=== PATIENT | female | born 1935 | race Caucasian/White ===

== ENCOUNTER 2019-02-16 11:09 | Outpatient (CLI) | payer MEDICARE, BC ==
[2019-02-16 17:07] LABS: BASOPHILS # (AUTO) 0.1 10^3/uL (0.0-0.1); BASOPHILS % (AUTO) 1.2 %; EOSINOPHILS # (AUTO) 0.1 10^3/uL (0.0-0.7); EOSINOPHILS % (AUTO) 1.8 %; HGB - HEMOGLOBIN 15.2 g/dL (12.0-16.0); LYMPHOCYTES # (AUTO) 1.5 10^3/uL (1.5-3.5); LYMPHOCYTES % (AUTO) 21.1 %; MEAN CORPUSCULAR HEMOGLOBIN 32.8 pg (27.0-31.0); MEAN CORPUSCULAR HGB CONC 32.1 g/dL (32.0-36.0); MEAN CORPUSCULAR VOLUME 102.2 fL (81.0-99.0); MEAN PLATELET VOLUME 9.7 fL (7.9-10.8); MONOCYTES # (AUTO) 0.6 10^3/uL (0.0-1.0); NEUTROPHILS # (AUTO) 4.9 10^3/uL (1.5-6.6); NEUTROPHILS % (AUTO) 67.6 %; PLT - PLATELET COUNT 298 10^3/uL (130-450); RED BLOOD COUNT 4.64 10^6/uL (4.20-5.40); RED CELL DISTRIBUTION WIDTH 18.2 % (12.0-15.0); WHITE BLOOD COUNT 7.3 x10^3/uL (4.8-10.8)
== END 2019-02-16 11:10 | disposition home or self-care (01) ==
LOC: LAB.S 11:09
DX: D45 Polycythemia vera (principal)
CPT/HCPCS: 36415; 85025

== ENCOUNTER 2019-03-05 | Outpatient (CLI) | payer MEDICARE, BC | END 2019-03-05 12:06 | disposition home or self-care (01) | DX: D45 Polycythemia vera (principal) | CPT/HCPCS: 36415; 85025 ==

== ENCOUNTER 2019-03-31 13:37 | Outpatient (CLI) | payer MEDICARE, BC ==
[2019-03-31 17:37] LABS: BASOPHILS # (AUTO) 0.1 10^3/uL (0.0-0.1); BASOPHILS % (AUTO) 0.8 %; EOSINOPHILS # (AUTO) 0.1 10^3/uL (0.0-0.7); EOSINOPHILS % (AUTO) 1.2 %; HGB - HEMOGLOBIN 13.7 g/dL (12.0-16.0); LYMPHOCYTES # (AUTO) 1.9 10^3/uL (1.5-3.5); LYMPHOCYTES % (AUTO) 28.8 %; MEAN CORPUSCULAR HEMOGLOBIN 35.1 pg (27.0-31.0); MEAN CORPUSCULAR HGB CONC 32.9 g/dL (32.0-36.0); MEAN CORPUSCULAR VOLUME 106.7 fL (81.0-99.0); MEAN PLATELET VOLUME 9.4 fL (7.9-10.8); MONOCYTES # (AUTO) 0.3 10^3/uL (0.0-1.0); MONOCYTES % (AUTO) 5.1 %; NEUTROPHILS # (AUTO) 4.2 10^3/uL (1.5-6.6); NEUTROPHILS % (AUTO) 63.6 %; PLT - PLATELET COUNT 266 10^3/uL (130-450); WHITE BLOOD COUNT 6.5 x10^3/uL (4.8-10.8)
== END 2019-03-31 13:38 | disposition home or self-care (01) ==
LOC: LAB.S 13:37
PROVIDERS: ATTEND Nurse Practitioner
DX: D45 Polycythemia vera (principal)
CPT/HCPCS: 36415; 85025

== ENCOUNTER 2019-04-28 13:02 | Outpatient (CLI) | payer MEDICARE, BC ==
[2019-04-28 17:35] LABS: BASOPHILS % (AUTO) 0.7 %; EOSINOPHILS # (AUTO) 0.2 10^3/uL (0.0-0.7); EOSINOPHILS % (AUTO) 2.5 %; HGB - HEMOGLOBIN 13.6 g/dL (12.0-16.0); LYMPHOCYTES # (AUTO) 1.5 10^3/uL (1.5-3.5); LYMPHOCYTES % (AUTO) 24.3 %; MEAN CORPUSCULAR HEMOGLOBIN 38.1 pg (27.0-31.0); MEAN CORPUSCULAR HGB CONC 33.7 g/dL (32.0-36.0); MEAN CORPUSCULAR VOLUME 112.9 fL (81.0-99.0); MEAN PLATELET VOLUME 9.3 fL (7.9-10.8); MONOCYTES # (AUTO) 0.4 10^3/uL (0.0-1.0); MONOCYTES % (AUTO) 6.7 %; NEUTROPHILS # (AUTO) 3.9 10^3/uL (1.5-6.6); NEUTROPHILS % (AUTO) 65.5 %; PLT - PLATELET COUNT 255 10^3/uL (130-450); RED BLOOD COUNT 3.57 10^6/uL (4.20-5.40); RED CELL DISTRIBUTION WIDTH 15.9 % (12.0-15.0)
[2019-04-28 20:11] LABS: PLATELET ESTIMATE, MANUAL NORMAL (130-450,000) (NORMAL); PLATELET MORPHOLOGY NORMAL APPEARANCE (NORMAL)
== END 2019-04-28 13:03 | disposition home or self-care (01) ==
LOC: LAB.S 13:02
PROVIDERS: ATTEND Nurse Practitioner
DX: D45 Polycythemia vera (principal)
CPT/HCPCS: 36415; 85025

== ENCOUNTER 2020-05-03 07:00 | Outpatient (CLI) | payer MEDICARE, BC | END 2020-05-03 23:59 | disposition home or self-care (01) | LOC: LAB.R 07:00 | PROVIDERS: ATTEND Physician Assistant Medical | DX: L97.929 Non-pressure chronic ulcer of unspecified part of left lower leg with unspecified severity (principal) | CPT/HCPCS: 87070; 87205 ==

== ENCOUNTER 2020-08-14 15:03 | Outpatient (CLI) | payer MEDICARE, BC | END 2020-08-14 15:04 | disposition critical access hospital (66) | LOC: EMS 15:03 | PROVIDERS: ATTEND Surgery | DX: R53.1 Weakness (principal) | CPT/HCPCS: A0425; A0427 ==

== ENCOUNTER 2020-08-14 15:44 | Inpatient (IN) | payer MEDICARE, BC ==
[2020-08-14] MEDS ORDERED: SODIUM CHLORIDE 0.9% 1,000 ML IV STA ×2 (16:07)
--- NOTE | 2020-08-14 16:16 | ED Physician Documentation ---
History of Present Illness - Stated complaint Stated Complaint: GENERAL WEAKNESS - Chief complaint Chief Complaint: General - History obtained from History obtained from: Patient, EMS - History of Present Illness Timing: Yesterday Pain level max: 0 Pain level now: 0 - Additonal information Additional information: 84-year-old female presents to the emergency department with nausea for the past 24 hours. Dry heaves today. She states she just has not felt very well for the past 24 hours. Nothing makes it better or worse. No pain. No fever. No cough. No chills. She has multiple sclerosis. Is on gabapentin currently for this. She is wheelchair-bound. She had been followed in the [facility] clinic for a wound on her leg that is now healed Review of Systems Ten Systems: 10 systems reviewed and negative Constitutional: denies: Fever, Chills Nose: denies: Rhinorrhea / runny nose, Congestion Respiratory: denies: Cough GI: reports: Nausea. 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 02/09/14 08/14/20 Baclofen 10 - 20 mg PO QPM 05/11/16 08/14/20 Nitrofurantoin Macrocrystal 50 mg PO QPM 05/11/16 08/14/20 [Macrodantin] Alpha-Lipoic Acid 1,200 mg .ROUTE DAILY 05/18/20 05/18/20 Biotin 100 mg PO TID 05/18/20 08/14/20 Hydroxyurea [Hydrea] 500 mg PO QPM 05/18/20 08/14/20 Latanoprost/Pf [Latanoprost 0.005% 1 drops EACHEYE DAILY 05/18/20 08/14/20 Eye Drop] Urispas 100 mg PO BID PRN 05/18/20 05/18/20 Flavoxate HCl 100 mg PO DAILY 08/14/20 08/14/20 Zoledronic Acid 4 mg/100 ml 5 mg IV ONCE 08/14/20 08/14/20 [Zometa 4 mg/100 ml] hydroCHLOROthiazide [Hydrodiuril] 25 mg PO DAILY 08/14/20 08/14/20 - Allergies Allergies/Adverse Reactions: Allergies Allergy/AdvReac Type Severity Reaction Status Date / Time phenytoin sodium * Allergy Hives Verified 08/14/20 15:54 [From Dilantin] phenytoin sodium extended * Allergy Hives Verified 08/14/20 15:54 [From Dilantin] Sulfa (Sulfonamide Allergy Rash Verified 08/14/20 15:54 Antibiotics) - Social History Does the pt smoke?: No Smoking Status: Never smoker Does the pt drink ETOH?: Yes Does the pt have substance abuse?: No PD ED PE NORMAL - Vitals Vital signs reviewed: Yes - General General: Alert and oriented X 3, No acute distress, Well developed/nourished - HEENT HEENT: PERRL, Moist mucous membranes - Neck Neck: Supple, no meningeal sign - Cardiac Cardiac: Strong equal pulses, Other (Tachycardic) - Respiratory Respiratory: No respiratory distress, Clear bilaterally - Abdomen Abdomen: Soft, Non tender, Non distended - Derm Derm: Warm and dry - Extremities Extremities: No deformity, Other (Pitting bilateral lower extremity edema. Unable to palpate pulses on the bilateral feet. Cyanotic feet. Delayed cap refill. Legs are warm bilaterally from the proximal tibia up.) - Neuro Neuro: Alert and oriented X 3 - Psych Psych: Normal mood, Normal affect Results - Vitals Vitals: Vital Signs - 24 hr 08/14/20 08/14/20 08/14/20 15:46 16:23 17:05 Temperature 36.8 C Heart Rate 138 H 124 H 145 H Respiratory 16 19 19 Rate Blood Pressure 132/106 H 138/120 H 129/92 H O2 Saturation 98 96 95 01/05/2508/14/20 08/14/20 17:27 17:35 17:40 Temperature Heart Rate 135 H 124 H 174 H Respiratory 25 H 25 H 27 H Rate Blood Pressure 101/78 123/69 132/76 H O2 Saturation 95 92 92 08/14/20 08/14/20 08/14/20 17:45 17:50 17:55 Temperature Heart Rate 142 H 148 H 159 H Respiratory 24 19 24 Rate Blood Pressure 139/75 H 137/81 H 126/73 O2 Saturation 90 L 89 L 92 08/14/20 08/14/20 08/14/20 18:00 18:03 18:05 Temperature Heart Rate 153 H 174 H 129 H Respiratory 21 22 23 Rate Blood Pressure 145/67 H 145/67 H 133/76 H O2 Saturation 93 94 93 08/14/20 08/14/20 08/14/20 18:10 18:16 18:20 Temperature Heart Rate 180 H 137 H 131 H Respiratory 24 21 26 H Rate Blood Pressure 94/64 133/76 H 99/72 O2 Saturation 92 92 92 08/14/20 18:25 Temperature Heart Rate 23 L Respiratory 23 Rate Blood Pressure 112/77 O2 Saturation 92 Oxygen O2 Source Nasal cannula - EKG (time done) 1548 Rate: Rate (enter#) (146) Rhythm: Sinus tachycardia Oblong: Normal Intervals: Normal VT QRS: Normal Ischemia: Q waves (V1-3) 1735 Rate: Rate (enter#) (136) Rhythm: Atrial flutter (2:1) Oblong: Normal Ischemia: Non specific changes - Labs Labs: Laboratory Tests 08/14/20 08/14/20 08/14/20 16:15 16:15 16:15 WBC 8.4 RBC 3.28 L Hgb 13.1 Hct 38.1 MCV 116.2 H MCH 39.9 H MCHC 34.4 RDW 14.1 Plt Count 267 MPV 9.3 Neut # (Auto) 6.0 Lymph # (Auto) 1.8 [place] # (Auto) 0.6 Eos # (Auto) 0.0 Baso # (Auto) 0.0 Absolute Nucleated RBC 0.00 Nucleated RBC % 0.0 Manual Slide Review Indicated Platelet Estimate NORMAL (130-450,000) Platelet Morphology NORMAL APPEARANCE RBC Morph Micro Appear 2+ MACROCYTOSIS Sodium 131 L Potassium 4.8 Chloride 96 L Carbon Dioxide 22 Anion Gap 13.0 BUN 29 H Creatinine 0.7 Estimated GFR (MDRD) 80 L Glucose 106 H Calcium 8.2 L Phosphorus 4.7 H Magnesium 1.9 Total Bilirubin 0.7 AST 32 ALT 53 Alkaline Phosphatase 95 Troponin I High Sens 30.2 H* Total Protein 6.2 L Albumin 3.4 Globulin 2.8 Albumin/Globulin Ratio 1.2 Lipase 22 TSH Free T4 08/14/20 16:15 WBC RBC Hgb Hct MCV MCH MCHC RDW Plt Count MPV Neut # (Auto) Lymph # (Auto) [place] # (Auto) Eos # (Auto) Baso # (Auto) Absolute Nucleated RBC Nucleated RBC % Manual Slide Review Platelet Estimate Platelet Morphology RBC Morph Micro Appear Sodium Potassium Chloride Carbon Dioxide Anion Gap BUN Creatinine Estimated GFR (MDRD) Glucose Calcium Phosphorus Magnesium Total Bilirubin AST ALT Alkaline Phosphatase Troponin I High Sens Total Protein Albumin Globulin Albumin/Globulin Ratio Lipase TSH 2.03 Free T4 > 6.00 H - Rads (name of study) cxr Radiology: Prelim report reviewed, EMP read contemporaneously arterial US B LE Radiology: Prelim report reviewed, EMP read contemporaneously PD MEDICAL DECISION MAKING - ED course Complexity details: reviewed results, re-evaluated patient, considered differential, d/w patient, d/w territory sales consultant ED course: 84-year-old female presents to the emergency department with new onset atrial flutter. She appears to be in a 2-1 block. Her heart rate on the monitor is counting the flutter waves as individual beats, therefore her heart rate appears more elevated on the monitor than it actually is. Difficult to control her heart rate under 100, therefore a diltiazem drip was started. Does appear to have mild CHF as well, BNP will be added by the hospitalist. Patient had very cold lower extremities, she feels better after IV fluids and is warmer. Arterial ultrasound is without acute abnormality at this time. This was done on the bilateral lower extremities. Patient will need to be admitted for further care. Discussed the case with Dr. Aleman, hospitalist who accepts There is no hemodynamically significant stenosis in the right lower extremity arteries. There may be a hemodynamically significant stenosis at the level of the left distal common femoral artery/proximal superficial femoral artery. Will likely require a referral to vascular surgery at some point for further evaluation. This document was made in part using voice recognition software. While efforts are made to proofread this document, sound alike and grammatical errors may occur. IMPRESSION: Question of mild airspace opacity at the left lung base. Prominent pulmonary vasculature markings. Cardiomegaly. Findings could be due to mild fluid overload/CHF. Duplex US B LE Arterial 1. No hemodynamically significant stenosis is seen in right lower extremity arteries. 2. Suggestion of hemodynamically significant stenosis at the level of left distal common femoral artery/proximal superficial femoral artery with extensive atherosclerotic disease throughout left superficial femoral artery. Departure - Departure Disposition: 66 [facility] DC/Xfer Clinical Impression: New onset atrial flutter, Atrial flutter with rapid ventricular response, PAD (peripheral artery disease) Condition: Stable Discharge Date/Time: 08/14/20 19:30
[2020-08-14 16:23] LABS: BASOPHILS % (AUTO) 0.2 %; EOSINOPHILS % (AUTO) 0.2 %; HGB - HEMOGLOBIN 13.1 g/dL (12.0-16.0); LYMPHOCYTES # (AUTO) 1.8 10^3/uL (1.5-3.5); LYMPHOCYTES % (AUTO) 20.9 %; MEAN CORPUSCULAR HEMOGLOBIN 39.9 pg (27.0-31.0); MEAN CORPUSCULAR HGB CONC 34.4 g/dL (32.0-36.0); MEAN CORPUSCULAR VOLUME 116.2 fL (81.0-99.0); MEAN PLATELET VOLUME 9.3 fL (7.9-10.8); MONOCYTES # (AUTO) 0.6 10^3/uL (0.0-1.0); MONOCYTES % (AUTO) 7.1 %; NEUTROPHILS % (AUTO) 71.4 %; PLT - PLATELET COUNT 267 10^3/uL (130-450); RED BLOOD COUNT 3.28 10^6/uL (4.20-5.40); RED CELL DISTRIBUTION WIDTH 14.1 % (12.0-15.0); WHITE BLOOD COUNT 8.4 x10^3/uL (4.8-10.8)
--- NOTE | 2020-08-14 16:29 | XRAY Report ---
PROCEDURE: Chest 1 View X-Ray INDICATIONS: dyspnea TECHNIQUE: One view of the chest was acquired. COMPARISON: None. FINDINGS: Surgical changes and devices: Bilateral axillary clips. Clips overlying the right paramedian lower th orax. Lungs and pleura: No pleural effusions or pneumothorax. Prominent pulmonary vasculature markings. Qu estion of mild airspace opacity at the left lung base.. Mediastinum: Mediastinal contours appear normal. Heart size is enlarged. Bones and chest wall: No suspicious bony lesions. Overlying soft tissues appear unremarkable. IMPRESSION: Question of mild airspace opacity at the left lung base. Prominent pulmonary vasculature markings. Cardiomegaly. Findings could be due to mild fluid overload/CHF. Reviewed by: Henrik Ortega MD on 08/14/2020 3:27 PM [facility] Approved by: Henrik Ortega MD on 08/14/2020 3:27 PM [facility] Station ID: [id number]
[2020-08-14 16:38] LABS: ALBUMIN 3.4 g/dL (3.2-5.5); ALBUMIN/GLOBULIN RATIO 1.2 (1.0-2.2); BILIRUBIN,TOTAL 0.7 mg/dL (0.2-1.0); CALCIUM 8.2 mg/dL (8.5-10.3); CREATININE 0.7 mg/dL (0.4-1.0); MAGNESIUM 1.9 mg/dL (1.7-2.8); PHOSPHORUS 4.7 mg/dL (2.5-4.6); TOTAL PROTEIN 6.2 g/dL (6.7-8.2)
[2020-08-14] MEDS ORDERED: diltiaZEM INJ 5 MG/ML VIAL IVP STA (16:59)
[2020-08-14 17:01] LABS: PLATELET ESTIMATE, MANUAL NORMAL (130-450,000) (NORMAL); PLATELET MORPHOLOGY NORMAL APPEARANCE (NORMAL); RBC MORPHOLOGY (MULTIPLE) 2+ MACROCYTOSIS (NORMAL)
[2020-08-14] MEDS ORDERED: MAGNESIUM SULFATE 2 GRAM 2 GM/50 ML BAG IV ONE ×2 (17:42→17:46)
[2020-08-14] MEDS ORDERED: DILTIAZEM 125 MG in DEXTROSE 5% 100 ML IV STA (17:43)
[2020-08-14] MEDS ORDERED: diltiaZEM INJ 5 MG/ML VIAL ONE (18:08)
[2020-08-14 18:25] LABS: THYROID STIMULATING HORMONE 2.03 uIU/mL (0.34-5.60)
[2020-08-14] MEDS ORDERED: ONDANSETRON 4 MG/2 ML VIAL IVP PRN (18:29)
[2020-08-14] MEDS ORDERED: oxyCODONE 5 MG TABLET PO PRN (18:29)
[2020-08-14] MEDS ORDERED: ONDANSETRON ODT 4 MG TABLET TL PRN (18:29)
[2020-08-14] MEDS ORDERED: SODIUM CHLORIDE FLUSH 0.9% 10 ML SYRINGE IVP PRN (18:29)
[2020-08-14] MEDS ORDERED: ACETAMINOPHEN 325 MG TABLET PO PRN (18:29)
--- NOTE | 2020-08-14 18:46 | Ultrasound Report ---
PROCEDURE: Duplex Lwr Ext Arterial Bilat INDICATIONS: cyanosis, B LE TECHNIQUE: Color and pulse Doppler interrogation was performed of both lower extremity arterial systems, with im age documentation. COMPARISON: None FINDINGS: Right lower extremity: Common femoral artery: 59.8 cm/sec, with triphasic flow. Deep femoral artery: 64.4 cm/sec, with triphasic flow. Proximal superficial femoral artery: 91.1 cm/sec, with triphasic flow. Mid superficial femoral artery: 83.2 cm/sec, with triphasic flow. Distal superficial femoral artery: 58.1 cm/sec, with triphasic flow. Popliteal artery: 26.7 cm/sec, with biphasic flow. Posterior tibial artery: 63.4 cm/sec, with biphasic flow. Anterior tibial artery/dorsalis pedis: 48.4 cm/sec, with biphasic flow. Hart-scale imaging description: No significant atherosclerotic plaques are seen. Left lower extremity: Common femoral artery: 96.8 cm/sec, with biphasic flow. Deep femoral artery: 93.4 cm/sec, with triphasic flow. Proximal superficial femoral artery: 211.9 cm/sec, with monophasic flow. Mid superficial femoral artery: 127.6 cm/sec, with monophasic flow. Distal superficial femoral artery: 130.3 cm/sec, with monophasic flow. Popliteal artery: 48.6 cm/sec, with monophasic flow. Posterior tibial artery: 63.4 cm/sec, with monophasic flow. Anterior tibial artery/dorsalis pedis: 89.4 cm/sec, with biphasic flow. Hart-scale imaging description: Moderate amount of atherosclerotic plaques are noted throughout left superficial femoral artery. IMPRESSION: 1. No hemodynamically significant stenosis is seen in right lower extremity arteries. 2. Suggestion of hemodynamically significant stenosis at the level of left distal common femoral flores ry/proximal superficial femoral artery with extensive atherosclerotic disease throughout left superfi cial femoral artery. Reviewed by: Conner Chow MD on 08/14/2020 6:45 PM PST Approved by: Conner Chow MD on 08/14/2020 6:45 PM PST Station ID: [id number]
[2020-08-14 18:48] LABS: FREE T4 (FREE THYROXINE) > 6.00 ng/dL (0.58-1.64)
[2020-08-14] MEDS ORDERED: LACTATED RINGERS 1,000 ML IV SCH (19:00)
[2020-08-14] MEDS ORDERED: IOVERSOL 320 100 ML VIAL IVP ONE ×2 (19:02→19:42)
--- NOTE | 2020-08-14 20:12 | CT Report ---
PROCEDURE: ANGIO CHEST W/WO INDICATIONS: new afib CONTRAST: IV CONTRAST: Optiray 320 ml: 80 PO CONTRAST: *NO PO CONTRAST TECHNIQUE: After the administration of intravenous contrast, 2 mm thick sections acquired from the pulmonary api carolyn to the posterior costophrenic angles. 3-dimensional maximum intensity projection (MIP) coronal a nd sagittal reformats were then acquired through the thorax. For radiation dose reduction, the follow ing was used: automated exposure control, adjustment of mA and/or kV according to patient size. COMPARISON: Chest radiograph from the same day FINDINGS: Image quality: Excellent. Pulmonary arteries: Pulmonary arteries are normal in size, and demonstrate no intraluminal filling d efects to suggest central pulmonary embolism. Lungs and pleura: Moderate bilateral pleural effusion is seen with adjacent segmental and subsegmenta l atelectasis in posterior aspect of bilateral upper and lower lobes. Hazy groundglass opacities are noted in bilateral aerated lung guillen. No pneumothorax. Central and peripheral airways are patent. Mediastinum: Heart size is enlarged, without pericardial effusion. Prominent soft tissue densities a re noted throughout mediastinum suggestive of mediastinal lymphadenopathy. No gross hilar lymphadenop athy by size criteria. Thoracic aorta is normal in caliber and enhancement. Esophagus is normal in c aliber, without hiatal hernia. Bones and chest wall: No suspicious bony lesions. Ribs and thoracic spine appear intact throughout. The thyroid is normal. No axillary or supraclavicular adenopathy. Abdomen: Visualized upper abdominal solid organs appear normal in the early arterial phase of enhanc ement. IMPRESSION: 1. No evidence of pulmonary emboli. No thoracic aortic aneurysm. 2. Cardiomegaly. Moderate bilateral pleural effusion with atelectasis in posterior aspect of bilatera l lung guillen. Hazy groundglass opacities in aerated bilateral lung guillen. Constellation of findings is suggestive of CHF. No pneumothorax. Airway is patent. 3. Prominent soft tissue density in mediastinum suggestive of reactive inflammatory lymphadenopathy. Reviewed by: Conner Chow MD on 08/14/2020 8:10 PM PST Approved by: Conner Chow MD on 08/14/2020 8:10 PM PST Station ID: [id number]
[2020-08-14 20:18] LABS: C. PNEUMONIAE- RESP PCR PANEL NOT DETECTED
[2020-08-14] MEDS ORDERED: METOCLOPRAMIDE 10 MG/2 ML VIAL IVP PRN (20:51)
[2020-08-14 21:04] LABS: BILIRUBIN,URINE NEGATIVE (NEGATIVE); GLUCOSE, URINE (UA) NEGATIVE (NEGATIVE); KETONES,URINE (UA) TRACE mg/dL (NEGATIVE); LEUKOCYTE ESTERASE, URINE NEGATIVE (NEGATIVE); NITRITE,URINE NEGATIVE (NEGATIVE); OCCULT BLOOD,URINE NEGATIVE (NEGATIVE); PH,URINE 5.5 PH (5.0-7.5); PROTEIN,URINE NEGATIVE (NEGATIVE); UROBILINOGEN,URINE 0.2 (NORMAL) E.U./dL (NORMAL)
[2020-08-14 21:16] LABS: CLARITY,URINE CLEAR (CLEAR)
[2020-08-14] MEDS ORDERED: ENOXAPARIN 60 MG/0.6 ML SYRINGE SUBQ SCH (22:00)
[2020-08-14 22:42] LABS: HEMOGLOBIN A1c% 4.7 % (4.27-6.07)
[2020-08-14] MEDS: METOPROLOL TARTRATE 50 MG TABLET PO SCH (23:09)
[2020-08-14] MEDS: ATORVASTATIN 10 MG TABLET PO SCH (23:10)
[2020-08-14] MEDS: GABAPENTIN 300 MG CAPSULE PO SCH (23:11)
[2020-08-14] MEDS: NITROFURANTOIN MACROCRYSTAL 50 MG PO SCH (23:11)
[2020-08-14] MEDS: BACLOFEN 10 MG TABLET PO SCH (23:11)
[2020-08-15] MEDS: diltiaZEM INJ 125 MG in DEXTROSE 5% 100 ML IV SCH ×2 (00:05→15:11)
[2020-08-15] MEDS: SODIUM CHLORIDE FLUSH 0.9% 10 ML SYRINGE IVP SCH ×3 (00:06→17:56)
[2020-08-15] MEDS: ZOLPIDEM 5 MG TABLET PO PRN ×2 (01:03→21:51)
[2020-08-15 05:27] LABS: ALBUMIN 3.2 g/dL (3.2-5.5); ALBUMIN/GLOBULIN RATIO 1.2 (1.0-2.2); ALKALINE PHOSPHATASE 93 IU/L (42-121); ALT ALANINE AMINOTRANSFERASE 52 IU/L (10-60); AST ASPARTATE AMINOTRANSFERASE 29 IU/L (10-42); BILIRUBIN,TOTAL 0.8 mg/dL (0.2-1.0); BUN - BLOOD UREA NITROGEN 27 mg/dL (6-20); CALCIUM 8.3 mg/dL (8.5-10.3); CARBON DIOXIDE - CO2 20 mmol/L (21-32); CHLORIDE 103 mmol/L (101-111); CREATININE 0.6 mg/dL (0.4-1.0); GLUCOSE 98 mg/dL (70-100); SODIUM 134 mmol/L (135-145); TOTAL PROTEIN 5.9 g/dL (6.7-8.2)
[2020-08-15 05:40] LABS: VBG PH 7.311 (7.31-7.41)
[2020-08-15 05:56] LABS: FREE T3 8.7 pg/mL (2.5-3.9)
[2020-08-15 05:58] LABS: FREE T4 (FREE THYROXINE) 5.47 ng/dL (0.58-1.64)
[2020-08-15] MEDS: GABAPENTIN 300 MG CAPSULE PO SCH ×5 (06:10→20:51)
[2020-08-15] MEDS: METOPROLOL TARTRATE 50 MG TABLET PO SCH ×2 (08:07→20:29)
[2020-08-15] MEDS: polyethylene glycoL 3350 17 GM PACKET PO SCH (08:07)
[2020-08-15] MEDS ORDERED: ENOXAPARIN 40 MG/0.4 ML SYRINGE SUBQ SCH (09:00)
[2020-08-15] MEDS ORDERED: DIGOXIN 500 MCG/2 ML AMP IVP STA (12:14)
[2020-08-15] MEDS: FUROSEMIDE 20 MG/2 ML VIAL IVP SCH (13:07)
--- NOTE | 2020-08-15 16:40 | PHARMACY PROGRESS NOTE ---
- Best Possible Medication History Admit Date and Time: 08/14/20 1829 Processed by: Pharmacy Medication History completed: Yes Patient Interview: Completed Secondary Source(s): Pharmacy records, Insurance records As the person ultimately responsible for medication therapy, providers are able to order a medication from an existing home medication list in [facility] via the "Reconcile Routine" prior to Confirmation of that medication by direct support professional caregiver. Such practice is discouraged except when the physician, in their clinical judgment, deems that a medical need exists for a medication without regard to previous use.
--- NOTE | 2020-08-15 16:45 | PROVIDER PROGRESS NOTE ---
Subjective - Prog Note Date Prog Note Date: 08/22/20 Prog Note Time: 16:43 - Subjective Pt reports feeling: No change Subjective: She is exhausted. In retrospect she has been feeling poorly for a few weeks. But no palpitations, chest pain, orthopnea, or pedal edema. She is from [place]. She is lived in [facility]. She also lived in [place] for a few years before she went back to [place]. When they retired they bought a condo in [place]. But with Covid she moved to the [place] to stay with one of her daughters. All of her care is done at [facility]. She sees Dr. Dorothy Liz. 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 Her phone number is [phone]. Her fax number is [phone].I was able to speak to one of her colleagues. She is not in the office today but one of her colleagues was able to review the chart for me. The patient does have a multiple sclerosis. She is followed by neurologist at [facility] [place]. She is not in any treatment for the multiple sclerosis because of her past medical history. Apparently monoclonal antibodies are prohibited in people of a history of cancer. This patient has a history of melanoma. She is on hydroxyurea for polycythemia vera/essential thrombocytosis. She has been off the dilt drip. Started on metoprolol. Pulse would drop down to the 70s. Then she started creeping up so I added digoxin 0.25 without much reaction. Had to go back on the diltiazem drip to slow down her heart rate. I also gave her Lasix because of suspected congestive heart failure on the chest x-ray and on exam. Echocardiogram has been done. In review of her labs, she has hypocalcemia, hyperphosphatemia. She has an elevated free T4 of almost to 11 with a normal TSH. PTH level is also normal. Current Medications - Current Medications Current Medications: Active Medications Acetaminophen (Acetaminophen 325 Mg Tablet) 650 mg PO Q4HR PRN PRN Reason: Pain 1 to 4 Atorvastatin Calcium (Atorvastatin 10 Mg Tablet) 5 mg PO QPM [facility] Last Admin: 08/14/20 23:10 Dose: 5 mg Documented by: Baclofen (Baclofen 10 Mg Tablet) 10 - 20 mg PO QPM [facility] Last Admin: 08/14/20 23:11 Dose: Not Given Documented by: Furosemide (Furosemide 20 Mg/2 Ml Vial) 20 mg IVP DAILY [facility] Last Admin: 08/15/20 13:07 Dose: 20 mg Documented by: Gabapentin (Gabapentin 300 Mg Capsule) 600 mg PO 5XD [facility] Last Admin: 08/15/20 14:58 Dose: Not Given Documented by: Hydroxyurea (Hydroxyurea 500 Mg Capsule) 500 mg PO QPM [facility] Diltiazem HCl 125 mg/ Dextrose 125 mls @ 5 mls/hr IV .Q25H [facility]; Protocol Last Titration: 08/15/20 16:16 Dose: 10 mg/hr, 10 mls/hr Documented by: Latanoprost (Latanoprost 0.005% Ophth Drops) 1 drops EACHEYE QPM [facility] Metoclopramide HCl (Metoclopramide 10 Mg/2 Ml Vial) 5 mg IVP Q6HR PRN PRN Reason: Nausea / Vomiting Last Admin: 08/15/20 00:46 Dose: 5 mg Documented by: Metoprolol Tartrate (Metoprolol Tartrate 50 Mg Tablet) 50 mg PO BID [facility] Last Admin: 08/15/20 08:07 Dose: 50 mg Documented by: Non-Formulary Medication (Nitrofurantoin Macrocrystal [Macrodantin]) 50 mg PO QPM [facility] Last Admin: 08/14/20 23:11 Dose: Not Given Documented by: Ondansetron HCl (Ondansetron Odt 4 Mg Tablet) 4 mg TL Q6HR PRN PRN Reason: Nausea / Vomiting Ondansetron HCl (Ondansetron 4 Mg/2 Ml Vial) 4 mg IVP Q6HR PRN PRN Reason: Nausea / Vomiting Oxycodone HCl (Oxycodone 5 Mg Tablet) 5 mg PO Q4HR PRN PRN Reason: Pain 5 to 7 Polyethylene Glycol (Polyethylene Glycol 3350 17 Gm Packet) 17 gm PO DAILY [facility] Last Admin: 08/15/20 08:07 Dose: 17 gm Documented by: Sodium Chloride (Sodium Chloride Flush 0.9% 10 Ml Syringe) 10 ml IVP 0100,0900,1700 [facility] Last Admin: 08/15/20 08:08 Dose: Not Given Documented by: Sodium Chloride (Sodium Chloride Flush 0.9% 10 Ml Syringe) 10 ml IVP PRN PRN PRN Reason: NEEDED PER PROVIDER ORDERS Zolpidem Tartrate (Zolpidem 5 Mg Tablet) 5 mg PO QPM PRN PRN Reason: Insomnia Last Admin: 08/15/20 01:03 Dose: 5 mg Documented by: Aspirin [Aspir 81] 81 mg PO QPM 02/09/14 Atorvastatin Calcium [Lipitor] 5 mg PO QPM 02/09/14 Calcium Carbonate [Calcium] 500 mg PO BID 02/09/14 Cholecalciferol (Vitamin D3) [Vitamin D] 2,000 units PO DAILY 02/09/14 Gabapentin 600 mg PO TID 02/09/14 Baclofen 10 - 20 mg PO QPM 05/11/16 Nitrofurantoin Macrocrystal [Macrodantin] 50 mg PO QPM 05/11/16 Biotin 100 mg PO TID 05/18/20 Hydroxyurea [Hydrea] 500 mg PO QPM 05/18/20 Latanoprost/Pf [Latanoprost 0.005% Eye Drop] 1 drops EACHEYE DAILY 05/18/20 Flavoxate HCl 100 mg PO TID PRN 08/14/20 Zoledronic Acid 4 mg/100 ml [Zometa 4 mg/100 ml] 5 mg IV ONCE 08/14/20 Alpha Lipoic Acid 1,200 mg PO DAILY 08/15/20 Brimonidine Tartrate/Timolol [Combigan 0.2%-0.5% Eye Drops] 1 drops EACHEYE BID 08/15/20 Objective - Vital Signs/Intake & Output Reviewed Vital Signs: Yes Vital Signs: Vital Signs x48h Temp Pulse Pulse Resp BP BP Pulse Ox 08/15/20 15:38 105 H 132/80 H 08/15/20 14:55 118 H 122/82 H 08/15/20 14:00 108 H 11 L 134/62 H 98 08/15/20 13:00 36.7 C 106 H 18 139/72 H 96 08/15/20 12:30 115 H 08/15/20 12:00 110 H 16 143/88 H 97 08/15/20 11:00 85 27 H 127/67 98 08/15/20 10:00 36.6 C 72 21 111/71 98 08/15/20 09:27 76 08/15/20 09:00 115 H 21 136/72 H 95 Intake & Output: Intake & Output 08/12/20 08/13/20 08/14/20 08/15/20 23:59 23:59 23:59 23:59 Intake Total 1269.0 685.250 Output Total 495 1328 Balance 774.0 -642.750 - Objective General Appearance: positive: No acute distress, Alert, Other (He is so tired that she spends her visits with me head tilted downward. She rest her hand on her upper right hand with elbow bent and arm propping up her head. She is so t ired she can not hold her head up on her own.) Eyes Bilateral: positive: PERRL, EOMI Neck: negative: Stiff neck Respiratory: positive: No respiratory distress, Rales. negative: Wheezes, Rhonchi Cardiovascular: positive: Irregularly irregular, Tachycardia, JVD present, Systolic murmur, Diastolic murmur. negative: Gallop/S4, Friction rub Abdomen: positive: Non-tender, No organomegaly, Nml bowel sounds, No distention Skin: positive: Warm, Dry, Pallor Extremities: positive: Full ROM, Pedal edema Neurologic/Psychiatric: positive: Oriented x3, CN's nml (2-12). negative: Motor nml (generalized weakness, she is exhausted) - Lab Results Fish Bones: 08/14/20 16:15 08/15/20 04:43 Other Labs: Lab Results x24hrs 08/15/20 08/15/20 08/15/20 Range/Units 04:43 04:43 04:43 Neut # (Auto) (1.5-6.6) 10^3/uL Lymph # (Auto) (1.5-3.5) 10^3/uL Starr # (Auto) (0.0-1.0) 10^3/uL Eos # (Auto) (0.0-0.7) 10^3/uL Baso # (Auto) (0.0-0.1) 10^3/uL Absolute Nucleated RBC x10^3/uL Nucleated RBC % /100WBC Platelet Estimate (NORMAL) Platelet Morphology (NORMAL) RBC Morph Micro Appear (NORMAL) VBG pH 7.311 (7.31-7.41) Ionized Calcium 1.06 L YES (1.15-1.33) mmol/L Sodium 134 L (135-145) mmol/L Potassium 4.5 (3.5-5.0) mmol/L Chloride 103 (101-111) mmol/L Carbon Dioxide 20 L (21-32) mmol/L Anion Gap 11.0 (6-13) BUN 27 H (6-20) mg/dL Creatinine 0.6 (0.4-1.0) mg/dL Estimated GFR (MDRD) 95 (>89) Glucose 98 (70-100) mg/dL Estimat Average Glucose (70-100) mg/dL Hemoglobin A1c % (4.27-6.07) % Calcium 8.3 L (8.5-10.3) mg/dL Magnesium (1.7-2.8) mg/dL Total Bilirubin 0.8 (0.2-1.0) mg/dL AST 29 (10-42) IU/L ALT 52 (10-60) IU/L Alkaline Phosphatase 93 (42-121) IU/L Troponin I High Sens (2.3-14.8) ng/L B-Natriuretic Peptide (5-100) pg/mL Total Protein 5.9 L (6.7-8.2) g/dL Albumin 3.2 (3.2-5.5) g/dL Globulin 2.7 (2.1-4.2) g/dL Albumin/Globulin Ratio 1.2 (1.0-2.2) TSH (0.34-5.60) uIU/mL Free T4 5.47 H (0.58-1.64) ng/dL Free T3 pg/mL 8.70 H (2.5-3.9) pg/mL PTH Intact 56 (12-88) pg/mL Urine Color Urine Clarity (CLEAR) Urine pH (5.0-7.5) PH Ur Specific Sidney (1.002-1.030) Urine Protein (NEGATIVE) mg/dL Urine Glucose (UA) (NEGATIVE) mg/dL Urine Ketones (NEGATIVE) mg/dL Urine Occult Blood (NEGATIVE) Urine Nitrite (NEGATIVE) Urine Bilirubin (NEGATIVE) Urine Urobilinogen (NORMAL) E.U./dL Ur Leukocyte Esterase (NEGATIVE) Ur Microscopic Review Urine Culture Comments Urine Sodium mmol/L Nasal Adenovirus (PCR) Nasal B. parapertussis DNA (PCR) Nasal Coronavir 229E PCR Nasal Coronavir HKU1 PCR Nasal Coronavir NL63 PCR Nasal Coronavir OC43 PCR Nasal Enterovir/Rhinovir PCR Nasal Influenza B PCR Nasal Influenza A PCR Nasal Parainfluen 1 PCR Nasal Parainfluen 2 PCR Nasal Parainfluen 3 PCR Nasal Parainfluen 4 PCR Nasal RSV (PCR) Nasal Screen MRSA (PCR) (NEGATIVE) Nasal B.pertussis DNA PCR Nasal C.pneumoniae (PCR) Cipriano Human Metapneumo PCR Nasal M.pneumoniae (PCR) Nasal SARS-CoV-2 (PCR) 08/15/20 08/14/20 08/14/20 Range/Units 04:43 20:50 20:50 Neut # (Auto) (1.5-6.6) 10^3/uL Lymph # (Auto) (1.5-3.5) 10^3/uL Starr # (Auto) (0.0-1.0) 10^3/uL Eos # (Auto) (0.0-0.7) 10^3/uL Baso # (Auto) (0.0-0.1) 10^3/uL Absolute Nucleated RBC x10^3/uL Nucleated RBC % /100WBC Platelet Estimate (NORMAL) Platelet Morphology (NORMAL) RBC Morph Micro Appear (NORMAL) VBG pH (7.31-7.41) Ionized Calcium (1.15-1.33) mmol/L Sodium (135-145) mmol/L Potassium (3.5-5.0) mmol/L Chloride (101-111) mmol/L Carbon Dioxide (21-32) mmol/L Anion Gap (6-13) BUN (6-20) mg/dL Creatinine (0.4-1.0) mg/dL Estimated GFR (MDRD) (>89) Glucose (70-100) mg/dL Estimat Average Glucose (70-100) mg/dL Hemoglobin A1c % (4.27-6.07) % Calcium (8.5-10.3) mg/dL Magnesium 2.3 (1.7-2.8) mg/dL Total Bilirubin (0.2-1.0) mg/dL AST (10-42) IU/L ALT (10-60) IU/L Alkaline Phosphatase (42-121) IU/L Troponin I High Sens (2.3-14.8) ng/L B-Natriuretic Peptide (5-100) pg/mL Total Protein (6.7-8.2) g/dL Albumin (3.2-5.5) g/dL Globulin (2.1-4.2) g/dL Albumin/Globulin Ratio (1.0-2.2) TSH (0.34-5.60) uIU/mL Free T4 (0.58-1.64) ng/dL Free T3 pg/mL (2.5-3.9) pg/mL PTH Intact (12-88) pg/mL Urine Color YELLOW Urine Clarity CLEAR (CLEAR) Urine pH 5.5 (5.0-7.5) PH Ur Specific Sidney 1.025 (1.002-1.030) Urine Protein NEGATIVE (NEGATIVE) mg/dL Urine Glucose (UA) NEGATIVE (NEGATIVE) mg/dL Urine Ketones TRACE (NEGATIVE) mg/dL Urine Occult Blood NEGATIVE (NEGATIVE) Urine Nitrite NEGATIVE (NEGATIVE) Urine Bilirubin NEGATIVE (NEGATIVE) Urine Urobilinogen 0.2 (NORMAL) (NORMAL) E.U./dL Ur Leukocyte Esterase NEGATIVE (NEGATIVE) Ur Microscopic Review NOT INDICATED Urine Culture Comments NOT INDICATED Urine Sodium < 12.0 mmol/L Nasal Adenovirus (PCR) Nasal B. parapertussis DNA (PCR) Nasal Coronavir 229E PCR Nasal Coronavir HKU1 PCR Nasal Coronavir NL63 PCR Nasal Coronavir OC43 PCR Nasal Enterovir/Rhinovir PCR Nasal Influenza B PCR Nasal Influenza A PCR Nasal Parainfluen 1 PCR Nasal Parainfluen 2 PCR Nasal Parainfluen 3 PCR Nasal Parainfluen 4 PCR Nasal RSV (PCR) Nasal Screen MRSA (PCR) (NEGATIVE) Nasal B.pertussis DNA PCR Nasal C.pneumoniae (PCR) Cipriano Human Metapneumo PCR Nasal M.pneumoniae (PCR) Nasal SARS-CoV-2 (PCR) 08/14/20 08/14/20 08/14/20 Range/Units 20:30 19:50 19:08 Neut # (Auto) (1.5-6.6) 10^3/uL Lymph # (Auto) (1.5-3.5) 10^3/uL Starr # (Auto) (0.0-1.0) 10^3/uL Eos # (Auto) (0.0-0.7) 10^3/uL Baso # (Auto) (0.0-0.1) 10^3/uL Absolute Nucleated RBC x10^3/uL Nucleated RBC % /100WBC Platelet Estimate (NORMAL) Platelet Morphology (NORMAL) RBC Morph Micro Appear (NORMAL) VBG pH (7.31-7.41) Ionized Calcium (1.15-1.33) mmol/L Sodium (135-145) mmol/L Potassium (3.5-5.0) mmol/L Chloride (101-111) mmol/L Carbon Dioxide (21-32) mmol/L Anion Gap (6-13) BUN (6-20) mg/dL Creatinine (0.4-1.0) mg/dL Estimated GFR (MDRD) (>89) Glucose (70-100) mg/dL Estimat Average Glucose (70-100) mg/dL Hemoglobin A1c % (4.27-6.07) % Calcium (8.5-10.3) mg/dL Magnesium (1.7-2.8) mg/dL Total Bilirubin (0.2-1.0) mg/dL AST (10-42) IU/L ALT (10-60) IU/L Alkaline Phosphatase (42-121) IU/L Troponin I High Sens 30.2 H* (2.3-14.8) ng/L B-Natriuretic Peptide (5-100) pg/mL Total Protein (6.7-8.2) g/dL Albumin (3.2-5.5) g/dL Globulin (2.1-4.2) g/dL Albumin/Globulin Ratio (1.0-2.2) TSH (0.34-5.60) uIU/mL Free T4 (0.58-1.64) ng/dL Free T3 pg/mL (2.5-3.9) pg/mL PTH Intact (12-88) pg/mL Urine Color Urine Clarity (CLEAR) Urine pH (5.0-7.5) PH Ur Specific Sidney (1.002-1.030) Urine Protein (NEGATIVE) mg/dL Urine Glucose (UA) (NEGATIVE) mg/dL Urine Ketones (NEGATIVE) mg/dL Urine Occult Blood (NEGATIVE) Urine Nitrite (NEGATIVE) Urine Bilirubin (NEGATIVE) Urine Urobilinogen (NORMAL) E.U./dL Ur Leukocyte Esterase (NEGATIVE) Ur Microscopic Review Urine Culture Comments Urine Sodium mmol/L Nasal Adenovirus (PCR) NOT DETECTED Nasal B. parapertussis DNA (PCR) NOT DETECTED Nasal Coronavir 229E PCR NOT DETECTED Nasal Coronavir HKU1 PCR NOT DETECTED Nasal Coronavir NL63 PCR NOT DETECTED Nasal Coronavir OC43 PCR NOT DETECTED Nasal Enterovir/Rhinovir PCR NOT DETECTED Nasal Influenza B PCR NOT DETECTED Nasal Influenza A PCR NOT DETECTED Nasal Parainfluen 1 PCR NOT DETECTED Nasal Parainfluen 2 PCR NOT DETECTED Nasal Parainfluen 3 PCR NOT DETECTED Nasal Parainfluen 4 PCR NOT DETECTED Nasal RSV (PCR) NOT DETECTED Nasal Screen MRSA (PCR) NEGATIVE (NEGATIVE) Nasal B.pertussis DNA PCR NOT DETECTED Nasal C.pneumoniae (PCR) NOT DETECTED Cipriano Human Metapneumo PCR NOT DETECTED Nasal M.pneumoniae (PCR) NOT DETECTED Nasal SARS-CoV-2 (PCR) NOT DETECTED 08/14/20 08/14/20 08/14/20 Range/Units 16:15 16:15 16:15 Neut # (Auto) (1.5-6.6) 10^3/uL Lymph # (Auto) (1.5-3.5) 10^3/uL Starr # (Auto) (0.0-1.0) 10^3/uL Eos # (Auto) (0.0-0.7) 10^3/uL Baso # (Auto) (0.0-0.1) 10^3/uL Absolute Nucleated RBC x10^3/uL Nucleated RBC % /100WBC Platelet Estimate (NORMAL) Platelet Morphology (NORMAL) RBC Morph Micro Appear (NORMAL) VBG pH (7.31-7.41) Ionized Calcium (1.15-1.33) mmol/L Sodium (135-145) mmol/L Potassium (3.5-5.0) mmol/L Chloride (101-111) mmol/L Carbon Dioxide (21-32) mmol/L Anion Gap (6-13) BUN (6-20) mg/dL Creatinine (0.4-1.0) mg/dL Estimated GFR (MDRD) (>89) Glucose (70-100) mg/dL Estimat Average Glucose 88 (70-100) mg/dL Hemoglobin A1c % 4.7 (4.27-6.07) % Calcium (8.5-10.3) mg/dL Magnesium (1.7-2.8) mg/dL Total Bilirubin (0.2-1.0) mg/dL AST (10-42) IU/L ALT (10-60) IU/L Alkaline Phosphatase (42-121) IU/L Troponin I High Sens (2.3-14.8) ng/L B-Natriuretic Peptide 869 H (5-100) pg/mL Total Protein (6.7-8.2) g/dL Albumin (3.2-5.5) g/dL Globulin (2.1-4.2) g/dL Albumin/Globulin Ratio (1.0-2.2) TSH 2.03 (0.34-5.60) uIU/mL Free T4 > 6.00 H (0.58-1.64) ng/dL Free T3 pg/mL (2.5-3.9) pg/mL PTH Intact (12-88) pg/mL Urine Color Urine Clarity (CLEAR) Urine pH (5.0-7.5) PH Ur Specific Sidney (1.002-1.030) Urine Protein (NEGATIVE) mg/dL Urine Glucose (UA) (NEGATIVE) mg/dL Urine Ketones (NEGATIVE) mg/dL Urine Occult Blood (NEGATIVE) Urine Nitrite (NEGATIVE) Urine Bilirubin (NEGATIVE) Urine Urobilinogen (NORMAL) E.U./dL Ur Leukocyte Esterase (NEGATIVE) Ur Microscopic Review Urine Culture Comments Urine Sodium mmol/L Nasal Adenovirus (PCR) Nasal B. parapertussis DNA (PCR) Nasal Coronavir 229E PCR Nasal Coronavir HKU1 PCR Nasal Coronavir NL63 PCR Nasal Coronavir OC43 PCR Nasal Enterovir/Rhinovir PCR Nasal Influenza B PCR Nasal Influenza A PCR Nasal Parainfluen 1 PCR Nasal Parainfluen 2 PCR Nasal Parainfluen 3 PCR Nasal Parainfluen 4 PCR Nasal RSV (PCR) Nasal Screen MRSA (PCR) (NEGATIVE) Nasal B.pertussis DNA PCR Nasal C.pneumoniae (PCR) Cipriano Human Metapneumo PCR Nasal M.pneumoniae (PCR) Nasal SARS-CoV-2 (PCR) 08/14/20 08/14/20 Range/Units 16:15 16:15 Neut # (Auto) 6.0 (1.5-6.6) 10^3/uL Lymph # (Auto) 1.8 (1.5-3.5) 10^3/uL Starr # (Auto) 0.6 (0.0-1.0) 10^3/uL Eos # (Auto) 0.0 (0.0-0.7) 10^3/uL Baso # (Auto) 0.0 (0.0-0.1) 10^3/uL Absolute Nucleated RBC 0.00 x10^3/uL Nucleated RBC % 0.0 /100WBC Platelet Estimate NORMAL (130-450,000) (NORMAL) Platelet Morphology NORMAL APPEARANCE (NORMAL) RBC Morph Micro Appear 2+ MACROCYTOSIS (NORMAL) VBG pH (7.31-7.41) Ionized Calcium (1.15-1.33) mmol/L Sodium (135-145) mmol/L Potassium (3.5-5.0) mmol/L Chloride (101-111) mmol/L Carbon Dioxide (21-32) mmol/L Anion Gap (6-13) BUN (6-20) mg/dL Creatinine (0.4-1.0) mg/dL Estimated GFR (MDRD) (>89) Glucose (70-100) mg/dL Estimat Average Glucose (70-100) mg/dL Hemoglobin A1c % (4.27-6.07) % Calcium (8.5-10.3) mg/dL Magnesium (1.7-2.8) mg/dL Total Bilirubin (0.2-1.0) mg/dL AST (10-42) IU/L ALT (10-60) IU/L Alkaline Phosphatase (42-121) IU/L Troponin I High Sens 30.2 H* (2.3-14.8) ng/L B-Natriuretic Peptide (5-100) pg/mL Total Protein (6.7-8.2) g/dL Albumin (3.2-5.5) g/dL Globulin (2.1-4.2) g/dL Albumin/Globulin Ratio (1.0-2.2) TSH (0.34-5.60) uIU/mL Free T4 (0.58-1.64) ng/dL Free T3 pg/mL (2.5-3.9) pg/mL PTH Intact (12-88) pg/mL Urine Color Urine Clarity (CLEAR) Urine pH (5.0-7.5) PH Ur Specific Sidney (1.002-1.030) Urine Protein (NEGATIVE) mg/dL Urine Glucose (UA) (NEGATIVE) mg/dL Urine Ketones (NEGATIVE) mg/dL Urine Occult Blood (NEGATIVE) Urine Nitrite (NEGATIVE) Urine Bilirubin (NEGATIVE) Urine Urobilinogen (NORMAL) E.U./dL Ur Leukocyte Esterase (NEGATIVE) Ur Microscopic Review Urine Culture Comments Urine Sodium mmol/L Nasal Adenovirus (PCR) Nasal B. parapertussis DNA (PCR) Nasal Coronavir 229E PCR Nasal Coronavir HKU1 PCR Nasal Coronavir NL63 PCR Nasal Coronavir OC43 PCR Nasal Enterovir/Rhinovir PCR Nasal Influenza B PCR Nasal Influenza A PCR Nasal Parainfluen 1 PCR Nasal Parainfluen 2 PCR Nasal Parainfluen 3 PCR Nasal Parainfluen 4 PCR Nasal RSV (PCR) Nasal Screen MRSA (PCR) (NEGATIVE) Nasal B.pertussis DNA PCR Nasal C.pneumoniae (PCR) Cipriano Human Metapneumo PCR Nasal M.pneumoniae (PCR) Nasal SARS-CoV-2 (PCR) ABX Reporting Has patient been on IV antibiotics over the past 48 hours?: No Assessment/Plan - Problem List (1) Atrial flutter with rapid ventricular response Impression: This is a new diagnosis for her. Is not part of her past medical history as far as her primary care provider office can see.Preliminary, preliminary echocardiogram shows left ventricular systolic function moderately to severely impaired with an EF of 30 to 35%. Diastology and subtle regional wall motion abnormalities are difficult to assess in the presence of A. fib. Moderate to severe increase in left atrial volume index. Moderate to severe right atrial volume index. Mild secondary mitral regurgitation. Mild tricuspid regurgitation. Mild abnormal right heart pressures with an RVSP at rest 42 mmHg. Large left-sided pleural effusion noted.Troponins have been flat. She was 30.2 with both sets. I ordered CT angiogram for pulmonary emboli. Pulmonary arteries are normal in size. She has a moderate bilateral pleural effusion with adjacent segmental and subsegmental atelectasis in the posterior aspect of the bilateral upper and lower lobes. Hazy groundglass opacities noted in the bilateral aerated lung guillen. Heart size enlarged. No pericardial effusion. Prominent soft tissue densities are noted throughout the mediastinum suggestive of mediastinal lymphadenopathy. In this woman is Of note she is hyperthyroid. So her dilated left atrium and elevated T4 plus pleural effusion may have all contributed to put into A. fib. Plan: Anticoagulation in the form of Lovenox for now. I do not know if we can have to do any procedures on her and I do not want her on a DOAC. I have added digoxin 1 dose to help slow her down. She will be off diltiazem off and on but it would be contraindicated in someone his ejection fraction is so low Continue to increase Lopressor from 50 twice daily to 75 twice daily (2) Acute on chronic systolic heart failure Impression: Again a new diagnosis for her. She has no previous history of congestive heart failure or MO. Treatment for A. fib as above. Lasix 20 mg IV push twice daily (3) Pleural effusion due to CHF (congestive heart failure) Impression: Effusion presumed CHF. Will do ultrasound tomorrow to see if she is a candidate for a thoracentesis to see if that will help shortness of breath and fatigue. The pleural effusion also may be contributing to her A. fib. (4) Elevated serum free T4 level Impression: But a normal TSH. Repeat lab studies confirm that. This patient is not on any medication that would interfere with thyroid function studies. She is not on hormone replacement therapy, maps, amiodarone, methimazole, iodine-containing medications, tyrosine can MATIAS inhibitors, interferon, lithium, etc. Her TSH is normal so she does not have hypothyroidism from pituitary dysfunction. Plan: She may need a nuclear medicine scan to assess for true hyperthyroidism. I am puzzled by her lab results. I would also like her to be seen by endocrinology in the outpatient setting. I will make sure that her primary care provider gets a copy of this note. (5) Hypocalcemia Impression: Corrected hypocalcemia is still 8.3. So she is borderline low. PTH level is normal. I checked this because her phosphorus was high. We will give calcium and high-dose vitamin D.
[2020-08-15] MEDS: CALCIUM CARBONATE CHEW 500 MG TABLET PO SCH (17:56)
[2020-08-15] MEDS: NITROFURANTOIN MACROCRYSTAL 50 MG PO SCH (18:58)
[2020-08-15] MEDS: ATORVASTATIN 10 MG TABLET PO SCH (20:30)
[2020-08-15] MEDS: BACLOFEN 10 MG TABLET PO SCH (20:30)
[2020-08-15] MEDS: LATANOPROST 0.005% OPHTH DROPS EACHEYE SCH (20:50)
[2020-08-15] MEDS: APIXABAN 5 MG TABLET PO SCH (20:51)
[2020-08-15] MEDS ORDERED: NITROFURANTOIN MACROCRYSTAL 50 MG PO SCH (21:00)
[2020-08-15] MEDS ORDERED: HYDROXYUREA 500 MG CAPSULE PO SCH (21:00)
[2020-08-16] MEDS: CALCIUM CARBONATE CHEW 500 MG TABLET PO SCH ×4 (06:04→20:52)
[2020-08-16] MEDS: GABAPENTIN 300 MG CAPSULE PO SCH ×2 (06:28→08:50)
[2020-08-16] MEDS: SODIUM CHLORIDE FLUSH 0.9% 10 ML SYRINGE IVP SCH ×3 (06:41→18:04)
[2020-08-16] MEDS: CHOLECALCIFEROL 5,000 UNIT CAPSULE PO SCH (08:33)
[2020-08-16] MEDS: APIXABAN 5 MG TABLET PO SCH ×2 (08:34→20:50)
[2020-08-16] MEDS: METOPROLOL TARTRATE 50 MG TABLET PO SCH ×2 (08:34→20:49)
[2020-08-16] MEDS: polyethylene glycoL 3350 17 GM PACKET PO SCH (08:45)
--- NOTE | 2020-08-16 08:50 | PROVIDER PROGRESS NOTE ---
Assessment/Plan - Problem List (1) Acute on chronic systolic heart failure Assessment/Plan: Chest x-ray showed increased pulmonary edema and bilateral small pleural effusion with associated compressive atelectasis or consolidation. Patient is on Lasix 20 mg IV daily. I/O 1898/600. We will continue diuresis, monitoring output and weight Losartan 25 mg p.o. daily added Spironolactone 5 mg p.o. daily added. Patient was switched from metoprolol tartrate to metoprolol succinate 50 mg p.o. daily starting in the morning 08/17/19 Patient's echocardiogram showed an ejection fraction of 30 to 35%.. There was moderate to severely impaired overall left ventricular systolic function. There was no obvious regional wall abnormality. RSVP was 42mmHg Patient would need follow-up with cardiology upon discharge. This was discussed with the patient and her daughter. They expressed understanding. (2) Atrial flutter with rapid ventricular response Assessment/Plan: Patient's rate is currently controlled and ranging between 70 and 90. Metoprolol succinate 50 mg p.o. daily has been ordered. Diltiazem drip was discontinued yesterday. (3) Pleural effusion due to CHF (congestive heart failure) Assessment/Plan: Chest x-ray today showed small pleural effusion. Patient is on Lasix 20 mg IV daily. Spironolactone 25 mg p.o. daily and losartan were added today. Continue to monitor. (4) Elevated serum free T4 level Assessment/Plan: Free T4 was 5.47. Free T3 was 8.70. PTH intact was 56 which was normal Patient Will need follow-up with endocrinology upon discharge. His heart rate is appropriately controlled with metoprolol - Current Meds Current Meds: Current Medications Generic Name Dose Route Start Last Admin Trade Name Freq PRN Reason Stop Dose Admin Apixaban 5 mg 08/15/20 21:00 08/16/20 08:34 Apixaban 5 Mg Tablet PO 5 mg BID REESE Administration Atorvastatin Calcium 5 mg 08/14/20 23:00 08/15/20 20:30 Atorvastatin 10 Mg Tablet PO 5 mg QPM REESE Administration Baclofen 10 - 20 mg 08/14/20 23:00 08/15/20 20:30 Baclofen 10 Mg Tablet PO 20 mg QPM REESE Administration Calcium Carbonate/Glycine 500 mg 08/15/20 18:00 08/16/20 06:28 Calcium Carbonate Chew 500 Mg Tablet PO 500 mg TID REESE Administration Cholecalciferol 5,000 unit 08/16/20 09:00 08/16/20 08:33 Cholecalciferol 5,000 Unit Capsule PO 5,000 unit DAILY REESE Administration Furosemide 20 mg 08/15/20 13:00 08/15/20 13:07 Furosemide 20 Mg/2 Ml Vial IVP 20 mg DAILY REESE Administration Gabapentin 600 mg 08/14/20 23:00 08/16/20 06:28 Gabapentin 300 Mg Capsule PO 600 mg 5XD REESE Administration Hydroxyurea 500 mg 08/15/20 21:00 08/16/20 06:03 Hydroxyurea 500 Mg Capsule PO Not Given QPM REESE Diltiazem HCl 125 mg/ Dextrose 125 mls @ 5 mls/hr 08/14/20 19:00 08/15/20 21:30 IV 0 mg/hr .Q25H REESE 0 mls/hr Titration Protocol 5 MG/HR Latanoprost 1 drops 08/15/20 21:00 08/15/20 20:50 Latanoprost 0.005% Ophth Drops EACHEYE 1 drops QPM REESE Administration Metoclopramide HCl 5 mg 08/14/20 20:51 08/15/20 00:46 Metoclopramide 10 Mg/2 Ml Vial IVP 5 mg Q6HR PRN Administration Nausea / Vomiting Metoprolol Tartrate 75 mg 08/15/20 21:00 08/16/20 08:34 Metoprolol Tartrate 50 Mg Tablet PO 75 mg BID REESE Administration Non-Formulary Medication 50 mg 08/14/20 22:35 08/15/20 18:58 Nitrofurantoin Macrocrystal [Macrodantin] PO 50 mg QPM REESE Administration [place] 0.2-0.5% 1 each 08/16/20 09:00 08/16/20 08:40 Eye Drops EACHEYE 1 each DAILY REESE Administration Polyethylene Glycol 17 gm 08/15/20 09:00 08/16/20 08:45 Polyethylene Glycol 3350 17 Gm Packet PO 17 gm DAILY REESE Administration Sodium Chloride 10 ml 08/15/20 01:00 08/16/20 08:44 Sodium Chloride Flush 0.9% 10 Ml Syringe IVP 10 ml 0100,0900,1700 REESE Administration Zolpidem Tartrate 5 mg 08/15/20 00:55 08/15/20 21:51 Zolpidem 5 Mg Tablet PO 5 mg QPM PRN Administration Insomnia - Lab Result Fish Bone Diagrams: 08/14/20 16:15 08/15/20 04:43 Subjective - Subjective Patient Reports: Other (.. She is alert and oriented x3. Her daughter was at bedside. However she seemed weak and exhausted. She complains of not sleeping well at night mainly due to Ambien. She reported mild increased work of juan [id number]. Denied chest pain, abdominal pain. She has a poor appetite) Objective Vital Signs: Vital Signs - 24 hr 08/15/20 08/15/20 08/15/20 09:00 09:27 10:00 Temperature 36.6 C Heart Rate Heart Rate [ 115 H 76 72 Brachial] Respiratory 21 21 Rate Blood Pressure Blood Pressure 136/72 H [Left Brachial artery] Blood Pressure 111/71 [Right Brachial artery] O2 Saturation 95 98 08/15/20 08/15/20 08/15/20 11:00 12:00 12:30 Temperature Heart Rate 115 H Heart Rate [ 85 110 H Brachial] Respiratory 27 H 16 Rate Blood Pressure Blood Pressure [Left Brachial artery] Blood Pressure 127/67 143/88 H [Right Brachial artery] O2 Saturation 98 97 08/15/20 08/15/20 08/15/20 13:00 14:00 14:55 Temperature 36.7 C Heart Rate Heart Rate [ 106 H 108 H 118 H Brachial] Respiratory 18 11 L Rate Blood Pressure Blood Pressure [Left Brachial artery] Blood Pressure 139/72 H 134/62 H 122/82 H [Right Brachial artery] O2 Saturation 96 98 08/15/20 08/15/20 08/15/20 15:38 16:00 17:00 Temperature Heart Rate Heart Rate [ 105 H 94 92 Brachial] Respiratory 17 19 Rate Blood Pressure Blood Pressure [Left Brachial artery] Blood Pressure 132/80 H 118/87 H 103/75 [Right Brachial artery] O2 Saturation 97 95 08/15/20 08/15/20 08/15/20 18:00 19:00 20:00 Temperature 36.8 C Heart Rate Heart Rate [ 88 93 96 Brachial] Respiratory 21 Rate Blood Pressure Blood Pressure [Left Brachial artery] Blood Pressure 124/74 125/62 128/62 [Right Brachial artery] O2 Saturation 95 96 96 01/06/2508/15/20 08/15/20 20:29 21:00 22:00 Temperature Heart Rate Heart Rate [ 69 76 Brachial] Respiratory 13 Rate Blood Pressure 128/62 Blood Pressure [Left Brachial artery] Blood Pressure 100/71 88/65 L [Right Brachial artery] O2 Saturation 96 94 08/15/20 08/16/20 08/16/20 23:00 00:00 01:00 Temperature 36.7 C Heart Rate Heart Rate [ 61 70 80 Brachial] Respiratory 13 20 12 Rate Blood Pressure Blood Pressure [Left Brachial artery] Blood Pressure 79/58 L 105/76 105/71 [Right Brachial artery] O2 Saturation 95 97 97 08/16/20 08/16/20 08/16/20 02:00 03:00 04:00 Temperature 36.7 C Heart Rate Heart Rate [ 70 73 82 Brachial] Respiratory 10 L 13 13 Rate Blood Pressure Blood Pressure [Left Brachial artery] Blood Pressure 88/60 L 113/74 126/98 H [Right Brachial artery] O2 Saturation 98 97 98 08/16/20 08/16/20 08/16/20 05:00 06:00 07:00 Temperature Heart Rate Heart Rate [ 80 80 85 Brachial] Respiratory 18 19 16 Rate Blood Pressure Blood Pressure [Left Brachial artery] Blood Pressure 125/82 H 130/83 H 124/67 [Right Brachial artery] O2 Saturation 98 92 93 08/16/20 08:34 Temperature Heart Rate Heart Rate [ Brachial] Respiratory Rate Blood Pressure 127/77 Blood Pressure [Left Brachial artery] Blood Pressure [Right Brachial artery] O2 Saturation Oxygen O2 Source Nasal cannula I&O (Last 24 Hrs): Intake and Output Totals x24h 08/14/20 08/15/20 08/16/20 23:59 23:59 23:59 Intake Total 1269.0 1237.583 500 Output Total 495 1898 130 Balance 774.0 -660.417 370 General: Alert, Oriented x3 Neck: No JVD Neuro: Alert, Oriented Times 3 Cardiovascular: Other (Irregularly irregular heart rhythm. regular rate, 3+ pitting edema) Respiratory: No respiratory distress, Other (coarse breath sound) Abdomen: Normal bowel sounds Extremities: Other (3+ pitting edema) - Results Results: Laboratory Results WBC 8.4 x10^3/uL (4.8-10.8) 08/14/20 16:15 RBC 3.28 10^6/uL (4.20-5.40) L 08/14/20 16:15 Hgb 13.1 g/dL (12.0-16.0) 08/14/20 16:15 Hct 38.1 % (37.0-47.0) 08/14/20 16:15 MCV 116.2 fL (81.0-99.0) H 08/14/20 16:15 MCH 39.9 pg (27.0-31.0) H 08/14/20 16:15 MCHC 34.4 g/dL (32.0-36.0) 08/14/20 16:15 RDW 14.1 % (12.0-15.0) 08/14/20 16:15 Plt Count 267 10^3/uL (130-450) 08/14/20 16:15 MPV 9.3 fL (7.9-10.8) 08/14/20 16:15 Neut # (Auto) 6.0 10^3/uL (1.5-6.6) 08/14/20 16:15 Lymph # (Auto) 1.8 10^3/uL (1.5-3.5) 08/14/20 16:15 [place] # (Auto) 0.6 10^3/uL (0.0-1.0) 08/14/20 16:15 Eos # (Auto) 0.0 10^3/uL (0.0-0.7) 08/14/20 16:15 Baso # (Auto) 0.0 10^3/uL (0.0-0.1) 08/14/20 16:15 Absolute Nucleated RBC 0.00 x10^3/uL 08/14/20 16:15 Nucleated RBC % 0.0 /100WBC 08/14/20 16:15 Manual Slide Review Indicated 08/14/20 16:15 Platelet Estimate NORMAL (130-450,000) (NORMAL) 08/14/20 16:15 Platelet Morphology NORMAL APPEARANCE (NORMAL) 08/14/20 16:15 RBC Morph Micro Appear 2+ MACROCYTOSIS (NORMAL) 08/14/20 16:15 VBG pH 7.311 (7.31-7.41) 08/15/20 04:43 Ionized Calcium 1.06 mmol/L (1.15-1.33) L 08/15/20 04:43 Sodium 134 mmol/L (135-145) L 08/15/20 04:43 Potassium 4.5 mmol/L (3.5-5.0) 08/15/20 04:43 Chloride 103 mmol/L (101-111) 08/15/20 04:43 Carbon Dioxide 20 mmol/L (21-32) L 08/15/20 04:43 Anion Gap 11.0 (6-13) 08/15/20 04:43 BUN 27 mg/dL (6-20) H 08/15/20 04:43 Creatinine 0.6 mg/dL (0.4-1.0) 08/15/20 04:43 Estimated GFR (MDRD) 95 (>89) 08/15/20 04:43 Glucose 98 mg/dL (70-100) 08/15/20 04:43 Estimat Average Glucose 88 mg/dL (70-100) 08/14/20 16:15 Hemoglobin A1c % 4.7 % (4.27-6.07) 08/14/20 16:15 Calcium 8.3 mg/dL (8.5-10.3) L 08/15/20 04:43 Ionized Calcium YES 08/15/20 04:43 Phosphorus 4.7 mg/dL (2.5-4.6) H 08/14/20 16:15 Magnesium 2.3 mg/dL (1.7-2.8) 08/15/20 04:43 Total Bilirubin 0.8 mg/dL (0.2-1.0) 08/15/20 04:43 AST 29 IU/L (10-42) 08/15/20 04:43 ALT 52 IU/L (10-60) 08/15/20 04:43 Alkaline Phosphatase 93 IU/L (42-121) 08/15/20 04:43 Troponin I High Sens 30.2 ng/L (2.3-14.8) H* 08/14/20 19:50 B-Natriuretic Peptide 869 pg/mL (5-100) H 08/14/20 16:15 Total Protein 5.9 g/dL (6.7-8.2) L 08/15/20 04:43 Albumin 3.2 g/dL (3.2-5.5) 08/15/20 04:43 Globulin 2.7 g/dL (2.1-4.2) 08/15/20 04:43 Albumin/Globulin Ratio 1.2 (1.0-2.2) 08/15/20 04:43 Lipase 22 U/L (22-51) 08/14/20 16:15 TSH 2.03 uIU/mL (0.34-5.60) 08/14/20 16:15 Free T4 5.47 ng/dL (0.58-1.64) H 08/15/20 04:43 Free T3 pg/mL 8.70 pg/mL (2.5-3.9) H 08/15/20 04:43 PTH Intact 56 pg/mL (12-88) 08/15/20 04:43 Urine Color YELLOW 08/14/20 20:50 Urine Clarity CLEAR (CLEAR) 08/14/20 20:50 Urine pH 5.5 PH (5.0-7.5) 08/14/20 20:50 Ur Specific [place] 1.025 (1.002-1.030) 08/14/20 20:50 Urine Protein NEGATIVE mg/dL (NEGATIVE) 08/14/20 20:50 Urine Glucose (UA) NEGATIVE mg/dL (NEGATIVE) 08/14/20 20:50 Urine Ketones TRACE mg/dL (NEGATIVE) 08/14/20 20:50 Urine Occult Blood NEGATIVE (NEGATIVE) 08/14/20 20:50 Urine Nitrite NEGATIVE (NEGATIVE) 08/14/20 20:50 Urine Bilirubin NEGATIVE (NEGATIVE) 08/14/20 20:50 Urine Urobilinogen 0.2 (NORMAL) E.U./dL (NORMAL) 08/14/20 20:50 Ur Leukocyte Esterase NEGATIVE (NEGATIVE) 08/14/20 20:50 Ur Microscopic Review NOT INDICATED 08/14/20 20:50 Urine Culture Comments NOT INDICATED 08/14/20 20:50 Urine Sodium < 12.0 mmol/L 08/14/20 20:50 Nasal Adenovirus (PCR) NOT DETECTED 08/14/20 19:08 Nasal B. parapertussis DNA (PCR) NOT DETECTED 08/14/20 19:08 Nasal Coronavir 229E PCR NOT DETECTED 08/14/20 19:08 Nasal Coronavir HKU1 PCR NOT DETECTED 08/14/20 19:08 Nasal Coronavir NL63 PCR NOT DETECTED 08/14/20 19:08 Nasal Coronavir OC43 PCR NOT DETECTED 08/14/20 19:08 Nasal Enterovir/Rhinovir PCR NOT DETECTED 08/14/20 19:08 Nasal Influenza B PCR NOT DETECTED 08/14/20 19:08 Nasal Influenza A PCR NOT DETECTED 08/14/20 19:08 Nasal Parainfluen 1 PCR NOT DETECTED 08/14/20 19:08 Nasal Parainfluen 2 PCR NOT DETECTED 08/14/20 19:08 Nasal Parainfluen 3 PCR NOT DETECTED 08/14/20 19:08 Nasal Parainfluen 4 PCR NOT DETECTED 08/14/20 19:08 Nasal RSV (PCR) NOT DETECTED 08/14/20 19:08 Nasal Screen MRSA (PCR) NEGATIVE (NEGATIVE) 08/14/20 20:30 Nasal B.pertussis DNA PCR NOT DETECTED 08/14/20 19:08 Nasal C.pneumoniae (PCR) NOT DETECTED 08/14/20 19:08 [place] Human Metapneumo PCR NOT DETECTED 08/14/20 19:08 Nasal M.pneumoniae (PCR) NOT DETECTED 08/14/20 19:08 Nasal SARS-CoV-2 (PCR) NOT DETECTED 08/14/20 19:08 ABX Reporting Has patient been on IV antibiotics over the past 48 hours?: No
--- NOTE | 2020-08-16 09:33 | HISTORY & PHYSICAL EXAMINATION ---
Original signed - OK to delete this version this is the re-dictated version first version appears more complete? - pls review remove this flag before signing - thanks I can delete this if you keep the orig. - Yennifer / OSIRIS/ [id number] THE 1st DICTATION WAS SIGNED. PLEASE DELETE THIS FROM THE RECORD THANK YOU! DATE OF SERVICE: 08/14/2020 Physician: Maru Fulton MD CHIEF COMPLAINT: Shortness of breath. HISTORY OF PRESENT ILLNESS: Patient is an 84-year-old, chronically ill white female with past medical history of multiple sclerosis who presented to the ER with a few days' history of poor appetite, nausea, dry heaves, and shortness of breath. She called nurse practitioner of her primary care office in [place], and she was recommended to come to the ER to get evaluated. Notably the patient does not have history of congestive heart failure or cardiac arrhythmia, at least not that she knows of. She was found in the ER with rapid heart rate and was found with atrial fibrillation, which is a new diagnosis. She was also found with congestive heart failure. Chest x-ray showed cardiomegaly, CHF-like interstitial infiltrates, and questionable left base opacity. High-sensitivity troponin was elevated at 30, subsequent check the same number without upgoing trend. White blood cell count was normal, hemoglobin normal, platelet count unremarkable. Electrolytes with minor abnormalities such as sodium 131, phosphorus was mildly elevated at 4.7, calcium 8.2. Interestingly, free T4 was significantly elevated at 6. However, TSH was normal. Urinalysis was negative. Viral panel including influenza and COVID test negative. Regarding the vital signs, besides the atrial fibrillation and rapid rate, patient was hypoxic with oxygen saturation in the 80s on room air and required supplemental oxygen. Notably, she does not have history of being oxygen dependent. PAST MEDICAL HISTORY 1. Multiple sclerosis. 2. Dyslipidemia. 3. Osteoporosis, was on Zometa in the past, currently not taking. 4. Essential thrombocytosis, on hydroxyurea. 5. History of breast cancer, status post mastectomy more than 17 years ago. No history of chemo or radiation therapy. 6. Peripheral neuropathy in the setting of MS. 7. Neurogenic bladder. 8. Chronic left lower extremity ulcer. No history of vascular insufficiency per the patient's knowledge. 9. Neurogenic bladder in the setting of MS. OUTPATIENT MEDICATIONS: Reviewed per electronic medical record. EMERGENCY ROOM WORKUP: Reviewed per electronic medical record. SOCIAL HISTORY: The patient lives with family members. She requires full care, basically wheelchair bound, and requires assistance with transfers. She is a nonsmoker. FAMILY HISTORY: Positive for MS in the sister. CODE STATUS: Do not resuscitate. REVIEW OF SYSTEMS: Please see pertinent positives listed above in history of present illness. Patient did not report additional complaints on the 12-system review. PHYSICAL EXAM VITAL SIGNS: Heart rate 138, temperature 36.8 Celsius, blood pressure 130/100, respiratory rate 25, oxygen saturation 86% on room air. GENERAL: The patient is a well-developed, chronically ill-appearing female who was not in acute distress. SKIN: Left lower extremity chronic ulcer in healing stage. LYMPHATICS: 3+ lymphedema below the knees on the lower extremities. NEUROLOGIC: Alert, oriented, nonfocal with some baseline word-finding difficulties and lower extremity weakness, which appears chronic secondary to MS. There is also some minor facial asymmetry with left-sided flattening of the face, which patient also reports is a personal variant and chronic. PSYCHIATRIC: Cooperative, pleasant to talk to. CVS: S1, S2, irregularly irregular fast rate. RESPIRATORY: Decreased air entry at the bases, a few fine crackles posteriorly. ABDOMEN: Benign without tenderness or distention. Bowel tones present. MUSCULOSKELETAL: Decreased muscle tone and lower extremity weakness in the setting of MS. ASSESSMENT AND PLAN: The patient is an 84-year-old female with past medical history of multiple sclerosis and chronic impairment who is getting admitted with new-onset atrial fibrillation and congestive heart failure. ACTIVE ISSUES/DIAGNOSES 1. Atrial fibrillation with rapid ventricular rate. 2. Congestive heart failure evidenced by mild troponin leak, elevated BNP, and cardiomegaly with interstitial infiltrates on chest x-ray. 3. Mild troponin leak without upgoing trend. 4. Abnormal electrolytes including hypocalcemia and hyperphosphatemia, [TIME: 08:22]. 5. Abnormal thyroid function test with elevated T4 and normal TSH. 6. Chronic left lower extremity ulcer. Notably, at the emergency room, vascular ultrasound/arterial Doppler was done and showed left common femoral stenosis down to the left superficial vein with extensive atherosclerotic changes. 7. Multiple sclerosis related chronic issues including wheelchair bound status, generalized weakness, urinary retention/neurogenic bladder, and dysphagia, difficulty swallowing pills. PLAN AND ORDERS 1. Patient is admitted as inpatient. We will continue rate control of atrial fibrillation on Cardizem drip, plus we will start metoprolol. Patient is a candidate for anticoagulation considering her CHADS-VASc score being above 3. Certain studies are pending including echocardiogram if she will have CHF, which is likely the score will be even be higher. In addition, she likely has peripheral vascular disease, which would make the score 5. Therefore, she definitely has high thromboembolic risk. For now, she will be given a dose of therapeutic Lovenox, and anticoagulation should be discussed and oral agents started during the daytime depending on insurance coverage. Echocardiogram is ordered. CT angiography of the chest is ordered to rule out pulmonary embolism. 2. Regarding electrolyte abnormalities, we will repeat laboratories, and if not a laboratory error then patient should be referred for endocrinology followup. Notably, on admission, parathyroid hormone was ordered. Further workup will be deferred to the outpatient setting. 3. Skin care and wound care. 4. [employer] Sales Representative consult. 5. Regarding hypoxia, I will provide supplemental oxygen and order diuresis. Notably, the patient received IV fluids on admission for renal protection, as she underwent a contrast study. For CHF, besides rate control she will likely need diuretic. 6. Code status. Do not resuscitate. 7. Deep venous thrombosis prophylaxis not needed, as the patient is therapeutically anticoagulated. 8. Time spent on the care of this patient was 70 minutes. TD: 08/16/2020 06:52 LYLY
[2020-08-16] MEDS: FUROSEMIDE 20 MG/2 ML VIAL IVP SCH (11:49)
--- NOTE | 2020-08-16 11:55 | XRAY Report ---
PROCEDURE: Chest 1 View X-Ray INDICATIONS: dyspnea TECHNIQUE: One view of the chest was acquired. COMPARISON: 08/14/2020 FINDINGS: Surgical changes and devices: None. Lungs and pleura: There are bilateral small pleural effusions, left greater than right, which appear increased from the prior study. Associated bibasilar opacities are consistent with compressive atele ctasis or consolidation. There is also slightly increased pulmonary edema. No evidence of pneumothora x. Mediastinum: Mediastinal contours appear unchanged. Heart size is enlarged. Bones and chest wall: No suspicious bony lesions. Overlying soft tissues appear unremarkable. IMPRESSION: 1. Increased pulmonary edema and bilateral small pleural effusions with associated compressive atelec tasis or consolidation. Reviewed by: Erik Ramos MD on 08/16/2020 11:54 AM [facility] Approved by: Erik Ramos MD on 08/16/2020 11:54 AM [facility] Station ID: [id number]
[2020-08-16] MEDS: HYDROXYUREA 500 MG CAPSULE PO SCH (14:22)
[2020-08-16] MEDS: GABAPENTIN 600 MG PO SCH ×2 (14:23→20:48)
[2020-08-16] MEDS ORDERED: oxyCODONE 5 MG TABLET PO PRN (20:05)
[2020-08-16] MEDS: NITROFURANTOIN MACROCRYSTAL 50 MG PO SCH (20:48)
[2020-08-16] MEDS: BACLOFEN 10 MG TABLET PO SCH (20:48)
[2020-08-16] MEDS: LATANOPROST 0.005% OPHTH DROPS EACHEYE SCH (20:48)
[2020-08-16] MEDS: ATORVASTATIN 10 MG TABLET PO SCH (20:50)
[2020-08-17] MEDS: GABAPENTIN 600 MG PO SCH ×3 (06:20→20:16)
[2020-08-17] MEDS: CALCIUM CARBONATE CHEW 500 MG TABLET PO SCH ×3 (06:25→20:16)
--- NOTE | 2020-08-17 07:30 | PROVIDER PROGRESS NOTE ---
Assessment/Plan - Problem List (1) Acute on chronic systolic heart failure Assessment/Plan: We will continue diuresing with Lasix 20 mg IV and spironolactone 25 mg p.o. daily. Patient also received losartan 25 mg p.o. daily Anticipating improvement in patient's respiratory status and decrease in pulmonary edema. Will recheck chest x-ray in the morning. Continue metoprolol succinate 50 mg p.o. daily Anticipate discharge in 1-2 days (2) Atrial flutter with rapid ventricular response Assessment/Plan: Patient's rate is currently controlled and ranging between 70 and 90. Metoprolol succinate 50 mg p.o. daily has been ordered. (3) Elevated serum free T4 level Assessment/Plan: Patient Will need follow-up with endocrinology upon discharge. (4) Pleural effusion due to CHF (congestive heart failure) Assessment/Plan: On Lasix, spironolactone and losartan. Will repeat chest x-ray in the morning. - Current Meds Current Meds: Current Medications Generic Name Dose Route Start Last Admin Trade Name Ryanq PRN Reason Stop Dose Admin Apixaban 5 mg 08/15/20 21:00 08/16/20 20:50 Apixaban 5 Mg Tablet PO 5 mg BID REESE Administration Atorvastatin Calcium 5 mg 08/14/20 23:00 08/16/20 20:50 Atorvastatin 10 Mg Tablet PO 5 mg QPM REESE Administration Baclofen 10 - 20 mg 08/14/20 23:00 08/16/20 20:48 Baclofen 10 Mg Tablet PO 20 mg QPM REESE Administration Calcium Carbonate/Glycine 500 mg 08/15/20 18:00 08/17/20 06:25 Calcium Carbonate Chew 500 Mg Tablet PO 500 mg TID REESE Administration Cholecalciferol 5,000 unit 08/16/20 09:00 08/16/20 08:33 Cholecalciferol 5,000 Unit Capsule PO 5,000 unit DAILY REESE Administration Furosemide 20 mg 08/15/20 13:00 08/16/20 11:49 Furosemide 20 Mg/2 Ml Vial IVP 20 mg DAILY REESE Administration Hydroxyurea 500 mg 08/16/20 15:00 08/16/20 14:22 Hydroxyurea 500 Mg Capsule PO 500 mg 1400 REESE Administration Latanoprost 1 drops 08/15/20 21:00 08/16/20 20:48 Latanoprost 0.005% Ophth Drops EACHEYE 1 drops QPM REESE Administration Metoclopramide HCl 5 mg 08/14/20 20:51 08/15/20 00:46 Metoclopramide 10 Mg/2 Ml Vial IVP 5 mg Q6HR PRN Administration Nausea / Vomiting Non-Formulary Medication 50 mg 08/14/20 22:35 08/16/20 20:48 Nitrofurantoin Macrocrystal [Macrodantin] PO 50 mg QPM REESE Administration Non Formulary Med 600 each 08/16/20 15:00 08/17/20 06:20 Gabapentin 600mg PO 600 each TID REESE Administration Com[place]an 0.2-0.5% 1 each 08/16/20 09:00 08/16/20 08:40 Eye Drops EACHEYE 1 each DAILY REESE Administration Polyethylene Glycol 17 gm 08/15/20 09:00 08/16/20 08:45 Polyethylene Glycol 3350 17 Gm Packet PO 17 gm DAILY REESE Administration Sodium Chloride 10 ml 08/15/20 01:00 08/16/20 18:04 Sodium Chloride Flush 0.9% 10 Ml Syringe IVP 10 ml 0100,0900,1700 REESE Administration Zolpidem Tartrate 5 mg 08/15/20 00:55 08/15/20 21:51 Zolpidem 5 Mg Tablet PO 5 mg QPM PRN Administration Insomnia - Lab Result Fish Bone Diagrams: 08/14/20 16:15 08/17/20 07:45 Subjective - Subjective Patient Reports: Other (Patient's lower extremity edema appear to have decreased today. She complained of having difficulty sleeping last night. She denied chest pain. She had some dyspnea with exertion while working with PT. Checks x-ray done yesterday reported increased pulmonary edema.) Objective Vital Signs: Vital Signs - 24 hr 08/16/20 08/16/20 08/16/20 08:00 08:34 09:00 Temperature Heart Rate [ 90 89 Monitoring electrodes] Heart Rate [ Sitting] Heart Rate [ Supine] Respiratory 18 20 Rate Blood Pressure 127/77 Blood Pressure 127/77 130/80 [Right Brachial artery] Blood Pressure [Sitting] Blood Pressure [Supine] O2 Saturation 93 95 08/16/20 08/16/20 08/16/20 10:00 11:00 12:00 Temperature Heart Rate [ 74 84 83 Monitoring electrodes] Heart Rate [ Sitting] Heart Rate [ Supine] Respiratory 16 11 L 19 Rate Blood Pressure Blood Pressure 98/56 L 100/69 104/64 [Right Brachial artery] Blood Pressure [Sitting] Blood Pressure [Supine] O2 Saturation 96 98 98 08/16/20 08/16/20 08/16/20 13:00 14:00 15:00 Temperature 36.5 C Heart Rate [ 86 88 73 Monitoring electrodes] Heart Rate [ Sitting] Heart Rate [ Supine] Respiratory 18 21 23 Rate Blood Pressure Blood Pressure 114/81 H 111/70 111/78 [Right Brachial artery] Blood Pressure [Sitting] Blood Pressure [Supine] O2 Saturation 98 98 99 08/16/20 08/16/20 08/16/20 15:10 16:00 17:00 Temperature 36.6 C Heart Rate [ 91 96 Monitoring electrodes] Heart Rate [ 92 Sitting] Heart Rate [ 75 Supine] Respiratory 23 23 Rate Blood Pressure Blood Pressure 99/76 142/86 H [Right Brachial artery] Blood Pressure 127/80 [Sitting] Blood Pressure 121/78 [Supine] O2 Saturation 100 96 08/16/20 08/16/20 08/16/20 17:56 19:00 20:49 Temperature Heart Rate [ 107 H 87 Monitoring electrodes] Heart Rate [ Sitting] Heart Rate [ Supine] Respiratory 22 17 Rate Blood Pressure 113/83 H Blood Pressure 115/67 107/69 [Right Brachial artery] Blood Pressure [Sitting] Blood Pressure [Supine] O2 Saturation 95 98 08/16/20 08/17/20 08/17/20 21:00 00:00 05:41 Temperature 36.9 C 36.8 C Heart Rate [ 94 80 86 Monitoring electrodes] Heart Rate [ Sitting] Heart Rate [ Supine] Respiratory 20 10 L 17 Rate Blood Pressure Blood Pressure 113/83 H 79/51 L 92/58 L [Right Brachial artery] Blood Pressure [Sitting] Blood Pressure [Supine] O2 Saturation 100 97 95 Oxygen O2 Source Nasal cannula I&O (Last 24 Hrs): Intake and Output Totals x24h 08/15/20 08/16/20 08/17/20 23:59 23:59 23:59 Intake Total 1237.583 840 Output Total 3909 7538 380 Balance -660.417 -578 -380 General: Alert, Oriented x3, Cooperative, Mild distress HEENT: PERRLA, EOMI Neck: No JVD Neuro: Alert, Non Focal, Oriented Times 3 Cardiovascular: No murmurs, Other (Irregularly irregular rhythm, regular rate) Respiratory: Other (No wheezing rales or rhonchi. Coarse breath sounds. Mild respiratory dyspnea with some conversational dyspnea) Abdomen: Normal bowel sounds, Soft Extremities: No clubbing, Other (2+ edema) Skin: No rashes - Results Results: Laboratory Results WBC 8.4 x10^3/uL (4.8-10.8) 08/14/20 16:15 RBC 3.28 10^6/uL (4.20-5.40) L 08/14/20 16:15 Hgb 13.1 g/dL (12.0-16.0) 08/14/20 16:15 Hct 38.1 % (37.0-47.0) 08/14/20 16:15 MCV 116.2 fL (81.0-99.0) H 08/14/20 16:15 MCH 39.9 pg (27.0-31.0) H 08/14/20 16:15 MCHC 34.4 g/dL (32.0-36.0) 08/14/20 16:15 RDW 14.1 % (12.0-15.0) 08/14/20 16:15 Plt Count 267 10^3/uL (130-450) 08/14/20 16:15 MPV 9.3 fL (7.9-10.8) 08/14/20 16:15 Neut # (Auto) 6.0 10^3/uL (1.5-6.6) 08/14/20 16:15 Lymph # (Auto) 1.8 10^3/uL (1.5-3.5) 08/14/20 16:15 [place] # (Auto) 0.6 10^3/uL (0.0-1.0) 08/14/20 16:15 Eos # (Auto) 0.0 10^3/uL (0.0-0.7) 08/14/20 16:15 Baso # (Auto) 0.0 10^3/uL (0.0-0.1) 08/14/20 16:15 Absolute Nucleated RBC 0.00 x10^3/uL 08/14/20 16:15 Nucleated RBC % 0.0 /100WBC 08/14/20 16:15 Manual Slide Review Indicated 08/14/20 16:15 Platelet Estimate NORMAL (130-450,000) (NORMAL) 08/14/20 16:15 Platelet Morphology NORMAL APPEARANCE (NORMAL) 08/14/20 16:15 RBC Morph Micro Appear 2+ MACROCYTOSIS (NORMAL) 08/14/20 16:15 VBG pH 7.311 (7.31-7.41) 08/15/20 04:43 Ionized Calcium 1.06 mmol/L (1.15-1.33) L 08/15/20 04:43 Sodium 134 mmol/L (135-145) L 08/15/20 04:43 Potassium 4.5 mmol/L (3.5-5.0) 08/15/20 04:43 Chloride 103 mmol/L (101-111) 08/15/20 04:43 Carbon Dioxide 20 mmol/L (21-32) L 08/15/20 04:43 Anion Gap 11.0 (6-13) 08/15/20 04:43 BUN 27 mg/dL (6-20) H 08/15/20 04:43 Creatinine 0.6 mg/dL (0.4-1.0) 08/15/20 04:43 Estimated GFR (MDRD) 95 (>89) 08/15/20 04:43 Glucose 98 mg/dL (70-100) 08/15/20 04:43 Estimat Average Glucose 88 mg/dL (70-100) 08/14/20 16:15 Hemoglobin A1c % 4.7 % (4.27-6.07) 08/14/20 16:15 Calcium 8.3 mg/dL (8.5-10.3) L 08/15/20 04:43 Ionized Calcium YES 08/15/20 04:43 Phosphorus 4.7 mg/dL (2.5-4.6) H 08/14/20 16:15 Magnesium 2.3 mg/dL (1.7-2.8) 08/15/20 04:43 Total Bilirubin 0.8 mg/dL (0.2-1.0) 08/15/20 04:43 AST 29 IU/L (10-42) 08/15/20 04:43 ALT 52 IU/L (10-60) 08/15/20 04:43 Alkaline Phosphatase 93 IU/L (42-121) 08/15/20 04:43 Troponin I High Sens 30.2 ng/L (2.3-14.8) H* 08/14/20 19:50 B-Natriuretic Peptide 869 pg/mL (5-100) H 08/14/20 16:15 Total Protein 5.9 g/dL (6.7-8.2) L 08/15/20 04:43 Albumin 3.2 g/dL (3.2-5.5) 08/15/20 04:43 Globulin 2.7 g/dL (2.1-4.2) 08/15/20 04:43 Albumin/Globulin Ratio 1.2 (1.0-2.2) 08/15/20 04:43 Lipase 22 U/L (22-51) 08/14/20 16:15 TSH 2.03 uIU/mL (0.34-5.60) 08/14/20 16:15 Free T4 5.47 ng/dL (0.58-1.64) H 08/15/20 04:43 Free T3 pg/mL 8.70 pg/mL (2.5-3.9) H 08/15/20 04:43 PTH Intact 56 pg/mL (12-88) 08/15/20 04:43 Urine Color YELLOW 08/14/20 20:50 Urine Clarity CLEAR (CLEAR) 08/14/20 20:50 Urine pH 5.5 PH (5.0-7.5) 08/14/20 20:50 Ur Specific [place] 1.025 (1.002-1.030) 08/14/20 20:50 Urine Protein NEGATIVE mg/dL (NEGATIVE) 08/14/20 20:50 Urine Glucose (UA) NEGATIVE mg/dL (NEGATIVE) 08/14/20 20:50 Urine Ketones TRACE mg/dL (NEGATIVE) 08/14/20 20:50 Urine Occult Blood NEGATIVE (NEGATIVE) 08/14/20 20:50 Urine Nitrite NEGATIVE (NEGATIVE) 08/14/20 20:50 Urine Bilirubin NEGATIVE (NEGATIVE) 08/14/20 20:50 Urine Urobilinogen 0.2 (NORMAL) E.U./dL (NORMAL) 08/14/20 20:50 Ur Leukocyte Esterase NEGATIVE (NEGATIVE) 08/14/20 20:50 Ur Microscopic Review NOT INDICATED 08/14/20 20:50 Urine Culture Comments NOT INDICATED 08/14/20 20:50 Urine Sodium < 12.0 mmol/L 08/14/20 20:50 Nasal Adenovirus (PCR) NOT DETECTED 08/14/20 19:08 Nasal B. parapertussis DNA (PCR) NOT DETECTED 08/14/20 19:08 Nasal Coronavir 229E PCR NOT DETECTED 08/14/20 19:08 Nasal Coronavir HKU1 PCR NOT DETECTED 08/14/20 19:08 Nasal Coronavir NL63 PCR NOT DETECTED 08/14/20 19:08 Nasal Coronavir OC43 PCR NOT DETECTED 08/14/20 19:08 Nasal Enterovir/Rhinovir PCR NOT DETECTED 08/14/20 19:08 Nasal Influenza B PCR NOT DETECTED 08/14/20 19:08 Nasal Influenza A PCR NOT DETECTED 08/14/20 19:08 Nasal Parainfluen 1 PCR NOT DETECTED 08/14/20 19:08 Nasal Parainfluen 2 PCR NOT DETECTED 08/14/20 19:08 Nasal Parainfluen 3 PCR NOT DETECTED 08/14/20 19:08 Nasal Parainfluen 4 PCR NOT DETECTED 08/14/20 19:08 Nasal RSV (PCR) NOT DETECTED 08/14/20 19:08 Nasal Screen MRSA (PCR) NEGATIVE (NEGATIVE) 08/14/20 20:30 Nasal B.pertussis DNA PCR NOT DETECTED 08/14/20 19:08 Nasal C.pneumoniae (PCR) NOT DETECTED 08/14/20 19:08 Cipriano Human Metapneumo PCR NOT DETECTED 08/14/20 19:08 Nasal M.pneumoniae (PCR) NOT DETECTED 08/14/20 19:08 Nasal SARS-CoV-2 (PCR) NOT DETECTED 08/14/20 19:08 ABX Reporting Has patient been on IV antibiotics over the past 48 hours?: No
[2020-08-17] MEDS: polyethylene glycoL 3350 17 GM PACKET PO SCH (08:14)
[2020-08-17 08:16] LABS: CALCIUM 8.4 mg/dL (8.5-10.3); CREATININE 0.4 mg/dL (0.4-1.0); MAGNESIUM 1.9 mg/dL (1.7-2.8)
[2020-08-17] MEDS: CHOLECALCIFEROL 5,000 UNIT CAPSULE PO SCH (08:16)
[2020-08-17] MEDS: APIXABAN 5 MG TABLET PO SCH ×2 (08:16→20:16)
[2020-08-17] MEDS: METOPROLOL SUCCINATE 25 MG TABLET PO SCH (08:17)
[2020-08-17] MEDS: SPIRONOLACTONE 25 MG TABLET PO SCH (08:18)
[2020-08-17] MEDS: SODIUM CHLORIDE FLUSH 0.9% 10 ML SYRINGE IVP SCH ×3 (08:37→17:20)
[2020-08-17] MEDS: FUROSEMIDE 20 MG/2 ML VIAL IVP SCH (08:37)
[2020-08-17] MEDS ORDERED: METOPROLOL SUCCINATE 25 MG TABLET PO SCH (09:00)
[2020-08-17] MEDS ORDERED: LOSARTAN 50 MG TABLET PO SCH (12:00)
[2020-08-17] MEDS: HYDROXYUREA 500 MG CAPSULE PO SCH (14:30)
--- NOTE | 2020-08-17 14:54 | HISTORY & PHYSICAL EXAMINATION ---
DATE OF SERVICE: 08/14/2020 Physician: Maru Fulton MD CHIEF COMPLAINT: Shortness of breath and nausea. HISTORY OF PRESENT ILLNESS: The patient is an 84-year-old, chronically ill white female with complex background. She recently moved from [place] to [facility], and she has been in the process of establishing medical care in [facility]. She actually splits her time between [facility] and [place], and most of her medical care currently is in [place]. The patient has history of multiple sclerosis, the diagnosis was established a few years ago. She was on disease-modifying agents; however, those did not work and were felt to be not appropriate to continue. She did have regular neurology followup, and ended up taking gabapentin and baclofen for symptom control, but currently not on any MS medications. It is notable that in the past the diagnosis of lupus was entertained, however, ruled out. Her additional medical problems include chronic left lower extremity ulcer, for which she receives wound care on [facility]. This ulcer has been improving recently. The patient states that she did see a vascular specialist in the past but was not told to have significant vascular stenosis. In addition, the patient has history of osteoporosis. For this problem, she saw an structural iron worker and was started on Zometa/Reclast, which she remembers receiving about two years ago. She also has history of essential thrombocytosis and she has been on hydroxyurea. Patient is not aware of having a history of coronary artery disease, congestive heart failure, cardiac arrhythmia. She does not have history of diabetes and is not aware of having history of thyroid abnormality. Regarding the circumstances of presentation, the patient developed poor appetite a few days ago and subsequently became nauseous and had episodes of dry heaves. During the past two days, she had intermittent episodes of shortness of breath but denied chest pain. Also denied vomiting, diarrhea, abdominal pain, or fever. Her daughter called primary care office, and they were recommended to come to the ER to get evaluated. Upon presentation to the ER, the patient was found significantly tachycardic with heart rate up to the 130s; EKG showing atrial fibrillation with rapid ventricular rate. Troponin was slightly elevated just above the reference range at 30/high sensitivity troponin. There were electrolyte abnormalities including sodium 131, borderline low calcium 8.2 and borderline elevated phosphate 4.7. TSH was normal, but free T4 reported elevated above 6. White blood cell count was normal. Hemoglobin normal. Microcytosis was present. Initial workup besides the EKG included CT angiography of the chest, which showed no evidence of pulmonary embolism. There was CHF-like hazy ground-glass abnormality together with cardiomegaly. In addition, prominent soft tissue density in the mediastinum was seen, suggestive of reactive inflammatory lymphadenopathy. PAST MEDICAL HISTORY 1. Multiple sclerosis. 2. Peripheral neuropathy. 3. Dyslipidemia. 4. Osteoporosis, was on Zometa in the past, currently not taking. 5. Essential thrombocytosis. 6. History of breast cancer, status post mastectomy /has not required chemotherapy or radiation. 7. Dysphagia/patient has difficulty swallowing sometimes which is, per her knowledge, secondary to MS. OUTPATIENT MEDICATIONS Reviewed per the available record, not yet reconciled. 1. In the past, the patient was on zoledronic acid, she stated she currently is not taking it. 2. Latanoprost. 3. Vitamin D. 4. Calcium. 5. Hydrochlorothiazide. 6. Lipitor. 7. Aspirin. 8. Macrodantin. 9. Gabapentin. 10. Baclofen. 11. Hydroxyurea. 12. Flavoxate. 13. Biotene. CODE STATUS/ADVANCE DIRECTIVE: Patient states that she has advanced directive, which lists DO NOT RESUSCITATE status. She does not wish to be on life support. SOCIAL HISTORY/FUNCTIONAL STATUS: Patient has multiple sclerosis and, as a result, she is wheelchair bound. She cannot perform transfers independently. Receives assistance from family with all activities. In addition, she has neurogenic bladder, and she requires going to the bathroom frequently. Every three hours, the family takes her to urinate. In addition, she does have history of dysphagia and difficulty swallowing pills. She requires 24-hour assistance from family. She is a nonsmoker. FAMILY HISTORY: Positive for multiple sclerosis in the sister. REVIEW OF SYSTEMS: Please see pertinent positives listed above at history of present illness, 12-system review had no other positives. PHYSICAL EXAMINATION VITAL SIGNS: Heart rate in the 130s, decreasing to 110-120 on Cardizem drip. Blood pressure 130/110, respiratory rate between 18 and 24, oxygen saturation 91% on room air. GENERAL: The patient is a chronically ill-appearing female who had increased work of breathing and required supplemental oxygen. CARDIOVASCULAR: S1, S2. Irregularly irregular. No obvious murmur. RESPIRATORY: Increased work of breathing without wheezes. Few crackles posteriorly with decreased air entry. NEUROLOGIC: Alert, oriented. Provides reasonably good history and answers questions appropriately. Appears with intact cognition and mentation. Occasionally has some word-finding difficulties. Appears with facial asymmetry with mild left-sided droop, which report is a personal variant/chronic. Appears without new focal lateralizing abnormality, however, has chronic lower extremity weakness secondary to multiple sclerosis. PSYCHIATRIC: Cooperative. SKIN: With pallor. No jaundice. Multiple bruises, ecchymoses on the extremities and left lower extremity chronic wound. MUSCULOSKELETAL: With decreased muscle mass, thin upper extremities and swollen, edematous lower extremities. Multiple small bruises on upper and lower extremities and the left lower extremity wound. LYMPHATIC: 3+ lymphedema on bilateral lower extremities. EMERGENCY ROOM WORKUP: Reviewed per electronic medical record and pertinent findings listed above at history of present illness. In addition, there was a chest x-ray, which showed cardiomegaly and CHF with a questionable left base opacity; and there was bilateral arterial Doppler ultrasound, which showed extensive arthrosclerotic disease and stenosis between the left common femoral and left superficial femoral arteries. ASSESSMENT AND PLAN: An 84-year-old chronically ill patient is getting admitted with new onset atrial fibrillation and congestive heart failure. In addition, she has multiple acute and chronic abnormalities. Notably she had borderline low oxygen saturation 91% at rest on room air. Therefore, she technically does have acute hypoxic respiratory failure, as well, secondary to congestive heart failure. ACTIVE ISSUES/DIAGNOSES/PROBLEM BY PROBLEM 1. New-onset atrial fibrillation. Echocardiogram was ordered. Pulmonary embolism and DVT ruled out. There is abnormal thyroid function, which could contribute. There could be underlying coronary artery disease. Plan: Continue telemetry monitoring. Continue Cardizem drip. Switch to oral medication, probably combination of metoprolol and Cardizem. Notably patient had strong blood pressure and will tolerate titrating up medications. Add hemoglobin A1c. Echocardiogram was already ordered. Aspirin was given. Regarding anticoagulation, the patient would likely benefit from anticoagulation and long-term anticoagulation issues can be discussed. Due to her age, comorbidities and immobility, she does have high thromboembolic risk. Overnight she will receive one loading dose of Lovenox, and we will monitor for bleeding complications. CHADSVasc score is at least 3, probably 5. 2. Mild troponin leak in the setting of congestive heart failure, nonischemic EKG, no upgoing trend. We will repeat troponin in the morning. Should be referred for outpatient cardiology followup and workup. 3. Congestive heart failure. This could be secondary to diastolic dysfunction in the setting of atrial fibrillation versus systolic dysfunction. Will require further workup and echocardiogram was ordered. The patient received IV hydration for renal protection following CT angiography; however, considering CHF, we will stop IV fluids. We will consider giving Lasix if needed. Continue with supplemental oxygen. 4. Chronic left lower extremity ulcer, likely secondary to chronic venous stasis plus vascular insufficiency; will need to be referred for vascular evaluation. The patient stated she did see vascular specialist in the past and was told that she did not have significant stenosis. Today had an arterial Doppler study, which shows stenosis, which is described as significant. Notably, [facility], and the patient should be referred back. While in the hospital, we will continue with skin care and wound care and will also order java flex developer consult and protein supplements. 5. Dysphagia secondary to multiple sclerosis. We will order dysphagia diet, which should be advanced as tolerated, and we will order nursing swallow screen. If there is any concern, a formal swallow evaluation can be ordered. 6. Abnormal electrolytes, including borderline hypocalcemia and hyperphosphatemia. Patient was on vitamin D and calcium supplements. She has history of osteoporosis. Whether she has other neuroendocrine abnormality is unclear. Notably, she does have history of breast cancer, underwent mastectomy; however, no recurrence was reported. For the electrolyte abnormalities, she will require further workup, noting that at the same time she has thyroid function test abnormality as well. She should be referred back to endocrinology followup. It is somewhat worrisome that mediastinal lymphadenopathy was described as well, which could be obviously related to thyroid or other pathology. In any case to start initial workup, PTH is ordered. It is also notable that Reclast/Zometa and hydroxyurea could also affect thyroid function and electrolytes. 7. Abnormal thyroid function test with high free T4 and normal TSH. Differential includes assay interference/laboratory error, medications including hydroxyurea, endocrine abnormalities including pituitary adenoma or thyroid hormone transport and metabolic abnormalities. For now, we will repeat thyroid function test including T4, T3, and TSH. 8. Respiratory failure/ hypoxia: this in the setting of atrial fibrillation and CHF. We will continue supplemental oxygen. Pulmonary embolism was ruled out. Pneumonia is unlikely. The patient might need diuresis prior to discharge, and we will consider diuretic on the second hospital day. For now, we will control the heart rate and see if she will spontaneously diurese with better control of hemodynamics. Notably, she did receive IV contrast and contrast nephropathy would be a concern; that is why she got IV hydration initially. 9. CODE STATUS: DO NOT RESUSCITATE. 10. Additional orders will include skin care, wound care, java flex developer consult. 11. Social work consult for discharge planning. Will need PT, OT evaluation. Might benefit from home health. 12. Deep venous thrombosis prophylaxis not ordered, as one dose of therapeutic anticoagulation given. Time spent in the care of this patient was 70 minutes. ATTESTATION: The patient is getting admitted as inpatient, as she will require more than 2 days hospital stay given her complex background and multiple active issues on admission. However, the reasonable expectation is that she will discharge or transfer to another facility within 96 hours. TD: 08/14/2020 21:51 LYLY
[2020-08-17] MEDS: LATANOPROST 0.005% OPHTH DROPS EACHEYE SCH (20:13)
[2020-08-17] MEDS: ATORVASTATIN 10 MG TABLET PO SCH (20:16)
[2020-08-17] MEDS: NITROFURANTOIN MACROCRYSTAL 50 MG PO SCH (20:17)
[2020-08-17] MEDS: BACLOFEN 10 MG TABLET PO SCH (20:29)
[2020-08-17] MEDS ORDERED: diphenhydrAMINE 25 MG CAPSULE PO ONE (22:13)
[2020-08-17] MEDS: diphenhydrAMINE 25 MG CAPSULE PO PRN (22:22)
[2020-08-18] MEDS: GABAPENTIN 600 MG PO SCH ×3 (07:33→20:18)
[2020-08-18] MEDS: CALCIUM CARBONATE CHEW 500 MG TABLET PO SCH ×3 (07:33→20:18)
--- NOTE | 2020-08-18 07:57 | PROVIDER PROGRESS NOTE ---
Assessment/Plan - Problem List (1) Acute on chronic systolic heart failure Assessment/Plan: Chest x-ray this morning did not show any improvement in patient's pulmonary edema. Patient's BNP today was 1176. Yesterday it was 1145. We will continue diuresing with Lasix 20 mg IV Twice daily and spironolactone 25 mg p.o. daily. Patient also received losartan 25 mg p.o. daily Continue metoprolol succinate 50 mg p.o. daily Patient had telemetry medicine visit with her primary care physician today in her room. I was on the conference with the primary care physician Dr. Liz and relayed To her that the patient would need an appointment with cardiology and endocrinology. She acknowledged this and is going to work on the referral. In anticipation of discharge and with regards to the patient and her daughter's wishes of going home with home health, the document control coordinator And myself spent a considerable amount of time discussing What her needs would be upon going home. I highlighted that the patient would likely be diuresing more and needing more transfers on Lasix. More caregiving hours will be needed. The patient will also need a [employer] lift to help. The patient's daughter who is at bedside requested that we also talked to the patient's and other daughter who were in the parking lot. We presented the patient's diagnosis to them and pointed out that level of care she currently needs has significantly increased. It will be more than could be provided in the home health setting an. Ideally the patient would most benefit from senior care facility placement. Also given that most of her subspecialty appointments would be in [place] where she has another residence and also that traveling from [facility] to her appointment in [place] which would require a handicap accessible mode of transport will be very expensive, it would be advisable for the patient be in [place] after discharge Her and other daughter seem to grasp the gravity of her condition. List of senior care facilities in the [place] area was provided to them. We will await their preference and document control coordinator will help facilitate the process when she is medically ready. Anticipate discharge in 2-3 days (2) Atrial flutter with rapid ventricular response Assessment/Plan: Continue metoprolol succinate 50 mg p.o. daily and Eliquis 5mg po bid. (3) Elevated serum free T4 level Assessment/Plan: Patient Will need follow-up with endocrinology upon discharge. (4) Pleural effusion due to CHF (congestive heart failure) Assessment/Plan: 3 done this morning did not show any significant change in her pulmonary edema status. We will continue active Diuresis with Lasix, spironolactone. Fluid restriction for a total of 1800 has been ordered. Sodium restriction of less than 2 g has been ordered. Dietary to educate patient on CHF. (5) V tach Assessment/Plan: Later in the evening patient had an 8-1/2-second run of V. tach. This is thought to be due to electrolyte shifts with active diuresis. We will replace electrolytes accordingly and continue monitoring patient. - Current Meds Current Meds: Current Medications Generic Name Dose Route Start Last Admin Trade Name Freq PRN Reason Stop Dose Admin Apixaban 5 mg 08/15/20 21:00 08/17/20 20:16 Apixaban 5 Mg Tablet PO 5 mg BID REESE Administration Atorvastatin Calcium 5 mg 08/14/20 23:00 08/17/20 20:16 Atorvastatin 10 Mg Tablet PO 5 mg QPM REESE Administration Baclofen 10 - 20 mg 08/14/20 23:00 08/17/20 20:29 Baclofen 10 Mg Tablet PO 20 mg QPM REESE Administration Calcium Carbonate/Glycine 500 mg 08/15/20 18:00 08/18/20 07:33 Calcium Carbonate Chew 500 Mg Tablet PO 500 mg TID REESE Administration Cholecalciferol 5,000 unit 08/16/20 09:00 08/17/20 08:16 Cholecalciferol 5,000 Unit Capsule PO 5,000 unit DAILY REESE Administration Diphenhydramine HCl 25 mg 08/17/20 21:13 08/17/20 22:22 Diphenhydramine 25 Mg Capsule PO 25 mg QPM PRN Administration Insomnia Furosemide 20 mg 08/15/20 13:00 08/17/20 08:37 Furosemide 20 Mg/2 Ml Vial IVP 20 mg DAILY REESE Administration Hydroxyurea 500 mg 08/16/20 15:00 08/17/20 14:30 Hydroxyurea 500 Mg Capsule PO 500 mg 1400 REESE Administration Latanoprost 1 drops 08/15/20 21:00 08/17/20 20:13 Latanoprost 0.005% Ophth Drops EACHEYE 1 drops QPM REESE Administration Metoclopramide HCl 5 mg 08/14/20 20:51 08/15/20 00:46 Metoclopramide 10 Mg/2 Ml Vial IVP 5 mg Q6HR PRN Administration Nausea / Vomiting Metoprolol Succinate 50 mg 08/17/20 09:00 08/17/20 08:17 Metoprolol Succinate 25 Mg Tablet PO 50 mg DAILY REESE Administration Non-Formulary Medication 50 mg 08/14/20 22:35 08/17/20 20:17 Nitrofurantoin Macrocrystal [Macrodantin] PO 50 mg QPM REESE Administration Non Formulary Med 600 each 08/16/20 15:00 08/18/20 07:33 Gabapentin 600mg PO 600 each TID REESE Administration Combingan 0.2-0.5% 1 each 08/16/20 09:00 08/17/20 08:20 Eye Drops EACHEYE 1 each DAILY REESE Administration Polyethylene Glycol 17 gm 08/15/20 09:00 08/17/20 08:14 Polyethylene Glycol 3350 17 Gm Packet PO Not Given DAILY REESE Sodium Chloride 10 ml 08/15/20 01:00 08/17/20 17:20 Sodium Chloride Flush 0.9% 10 Ml Syringe IVP 10 ml 0100,0900,1700 REESE Administration Spironolactone 25 mg 08/17/20 09:00 08/17/20 08:18 Spironolactone 25 Mg Tablet PO 25 mg DAILY REESE Administration - Lab Result Fish Bone Diagrams: 08/19/20 06:10 08/19/20 06:10 - Additional Planning My Orders: My Active Orders 08/18/20 06:00 Chest 1 View X-Ray [XR] Routine 08/18/20 07:53 BMP - BASIC METABOLIC PANEL [CHEM] Routine CBC - COMP BLD CT W/AUTO DIFF [HEME] Routine 08/18/20 07:54 BNP - B-NATRIURETIC PEPTIDE [IAI] Routine 08/18/20 09:00 BRAIN WO [MRI] Routine 08/19/20 05:00 BMP - BASIC METABOLIC PANEL [CHEM] DAILYLAB CBC - COMP BLD CT W/AUTO DIFF [HEME] DAILYLAB 08/20/20 05:00 BMP - BASIC METABOLIC PANEL [CHEM] DAILYLAB CBC - COMP BLD CT W/AUTO DIFF [HEME] DAILYLAB 08/21/20 05:00 BMP - BASIC METABOLIC PANEL [CHEM] DAILYLAB CBC - COMP BLD CT W/AUTO DIFF [HEME] DAILYLAB Subjective - Subjective Patient Reports: Other (Patient was exhibiting signs of conversational dyspnea during conversation today. However her oxygen saturation has been higher than 90 on room air. Her lower extremity edema seems to be more pronounced today. She appears weak.) Objective Vital Signs: Vital Signs - 24 hr 08/17/20 08/17/20 08/17/20 10:10 11:50 13:00 Temperature 36.5 C Heart Rate [ 111 H Activity] Heart Rate [ Brachial] Heart Rate [ 93 107 H Monitoring electrodes] Heart Rate [ 92 Sitting] Heart Rate [ 75 Supine] Respiratory 16 24 Rate Blood Pressure 136/93 H [Activity] Blood Pressure 79/59 L 136/93 H [Right Brachial artery] Blood Pressure 127/80 [Sitting] Blood Pressure 121/78 [Supine] O2 Saturation 95 96 08/17/20 08/17/20 08/18/20 17:00 20:02 00:04 Temperature 36.6 C 36.5 C Heart Rate [ Activity] Heart Rate [ 68 81 Brachial] Heart Rate [ 108 H Monitoring electrodes] Heart Rate [ Sitting] Heart Rate [ Supine] Respiratory 22 20 20 Rate Blood Pressure [Activity] Blood Pressure 138/115 H 132/80 H 115/71 [Right Brachial artery] Blood Pressure [Sitting] Blood Pressure [Supine] O2 Saturation 97 95 93 08/18/20 07:49 Temperature 36.8 C Heart Rate [ Activity] Heart Rate [ Brachial] Heart Rate [ 115 H Monitoring electrodes] Heart Rate [ Sitting] Heart Rate [ Supine] Respiratory 18 Rate Blood Pressure [Activity] Blood Pressure 138/82 H [Right Brachial artery] Blood Pressure [Sitting] Blood Pressure [Supine] O2 Saturation 91 L Oxygen O2 Source Room air I&O (Last 24 Hrs): Intake and Output Totals x24h 08/16/20 08/17/20 08/18/20 23:59 23:59 23:59 Intake Total 840 725 Output Total 1414 8511 675 Balance -882 -6078 -034 General: Alert, Oriented x3 HEENT: PERRLA, EOMI Neck: Supple, No JVD Neuro: Alert, Oriented Times 3 Cardiovascular: Other (3+ lower extremity edema.) Respiratory: Other (Conversational dyspnea.) Abdomen: Normal bowel sounds, Soft Extremities: No clubbing, No cyanosis, Other (3+ lower extremity edema bilaterally. Legs are wrapped in bandage) - Results Results: Laboratory Results WBC 8.4 x10^3/uL (4.8-10.8) 08/14/20 16:15 RBC 3.28 10^6/uL (4.20-5.40) L 08/14/20 16:15 Hgb 13.1 g/dL (12.0-16.0) 08/14/20 16:15 Hct 38.1 % (37.0-47.0) 08/14/20 16:15 MCV 116.2 fL (81.0-99.0) H 08/14/20 16:15 MCH 39.9 pg (27.0-31.0) H 08/14/20 16:15 MCHC 34.4 g/dL (32.0-36.0) 08/14/20 16:15 RDW 14.1 % (12.0-15.0) 08/14/20 16:15 Plt Count 267 10^3/uL (130-450) 08/14/20 16:15 MPV 9.3 fL (7.9-10.8) 08/14/20 16:15 Neut # (Auto) 6.0 10^3/uL (1.5-6.6) 08/14/20 16:15 Lymph # (Auto) 1.8 10^3/uL (1.5-3.5) 08/14/20 16:15 [place] # (Auto) 0.6 10^3/uL (0.0-1.0) 08/14/20 16:15 Eos # (Auto) 0.0 10^3/uL (0.0-0.7) 08/14/20 16:15 Baso # (Auto) 0.0 10^3/uL (0.0-0.1) 08/14/20 16:15 Absolute Nucleated RBC 0.00 x10^3/uL 08/14/20 16:15 Nucleated RBC % 0.0 /100WBC 08/14/20 16:15 Manual Slide Review Indicated 08/14/20 16:15 Platelet Estimate NORMAL (130-450,000) (NORMAL) 08/14/20 16:15 Platelet Morphology NORMAL APPEARANCE (NORMAL) 08/14/20 16:15 RBC Morph Micro Appear 2+ MACROCYTOSIS (NORMAL) 08/14/20 16:15 VBG pH 7.311 (7.31-7.41) 08/15/20 04:43 Ionized Calcium 1.06 mmol/L (1.15-1.33) L 08/15/20 04:43 Sodium 133 mmol/L (135-145) L 08/17/20 07:45 Potassium 3.8 mmol/L (3.5-5.0) 08/17/20 07:45 Chloride 99 mmol/L (101-111) L 08/17/20 07:45 Carbon Dioxide 26 mmol/L (21-32) 08/17/20 07:45 Anion Gap 8.0 (6-13) 08/17/20 07:45 BUN 14 mg/dL (6-20) 08/17/20 07:45 Creatinine 0.4 mg/dL (0.4-1.0) 08/17/20 07:45 Estimated GFR (MDRD) 152 (>89) 08/17/20 07:45 Glucose 95 mg/dL (70-100) 08/17/20 07:45 Estimat Average Glucose 88 mg/dL (70-100) 08/14/20 16:15 Hemoglobin A1c % 4.7 % (4.27-6.07) 08/14/20 16:15 Calcium 8.4 mg/dL (8.5-10.3) L 08/17/20 07:45 Ionized Calcium YES 08/15/20 04:43 Phosphorus 4.7 mg/dL (2.5-4.6) H 08/14/20 16:15 Magnesium 1.9 mg/dL (1.7-2.8) 08/17/20 07:45 Total Bilirubin 0.8 mg/dL (0.2-1.0) 08/15/20 04:43 AST 29 IU/L (10-42) 08/15/20 04:43 ALT 52 IU/L (10-60) 08/15/20 04:43 Alkaline Phosphatase 93 IU/L (42-121) 08/15/20 04:43 Troponin I High Sens 30.2 ng/L (2.3-14.8) H* 08/14/20 19:50 B-Natriuretic Peptide 1145 pg/mL (5-100) H 08/17/20 07:45 Total Protein 5.9 g/dL (6.7-8.2) L 08/15/20 04:43 Albumin 3.2 g/dL (3.2-5.5) 08/15/20 04:43 Globulin 2.7 g/dL (2.1-4.2) 08/15/20 04:43 Albumin/Globulin Ratio 1.2 (1.0-2.2) 08/15/20 04:43 Lipase 22 U/L (22-51) 08/14/20 16:15 TSH 2.03 uIU/mL (0.34-5.60) 08/14/20 16:15 Free T4 5.47 ng/dL (0.58-1.64) H 08/15/20 04:43 Free T3 pg/mL 8.70 pg/mL (2.5-3.9) H 08/15/20 04:43 PTH Intact 56 pg/mL (12-88) 08/15/20 04:43 Urine Color YELLOW 08/14/20 20:50 Urine Clarity CLEAR (CLEAR) 08/14/20 20:50 Urine pH 5.5 PH (5.0-7.5) 08/14/20 20:50 Ur Specific [place] 1.025 (1.002-1.030) 08/14/20 20:50 Urine Protein NEGATIVE mg/dL (NEGATIVE) 08/14/20 20:50 Urine Glucose (UA) NEGATIVE mg/dL (NEGATIVE) 08/14/20 20:50 Urine Ketones TRACE mg/dL (NEGATIVE) 08/14/20 20:50 Urine Occult Blood NEGATIVE (NEGATIVE) 08/14/20 20:50 Urine Nitrite NEGATIVE (NEGATIVE) 08/14/20 20:50 Urine Bilirubin NEGATIVE (NEGATIVE) 08/14/20 20:50 Urine Urobilinogen 0.2 (NORMAL) E.U./dL (NORMAL) 08/14/20 20:50 Ur Leukocyte Esterase NEGATIVE (NEGATIVE) 08/14/20 20:50 Ur Microscopic Review NOT INDICATED 08/14/20 20:50 Urine Culture Comments NOT INDICATED 08/14/20 20:50 Urine Sodium < 12.0 mmol/L 08/14/20 20:50 Nasal Adenovirus (PCR) NOT DETECTED 08/14/20 19:08 Nasal B. parapertussis DNA (PCR) NOT DETECTED 08/14/20 19:08 Nasal Coronavir 229E PCR NOT DETECTED 08/14/20 19:08 Nasal Coronavir HKU1 PCR NOT DETECTED 08/14/20 19:08 Nasal Coronavir NL63 PCR NOT DETECTED 08/14/20 19:08 Nasal Coronavir OC43 PCR NOT DETECTED 08/14/20 19:08 Nasal Enterovir/Rhinovir PCR NOT DETECTED 08/14/20 19:08 Nasal Influenza B PCR NOT DETECTED 08/14/20 19:08 Nasal Influenza A PCR NOT DETECTED 08/14/20 19:08 Nasal Parainfluen 1 PCR NOT DETECTED 08/14/20 19:08 Nasal Parainfluen 2 PCR NOT DETECTED 08/14/20 19:08 Nasal Parainfluen 3 PCR NOT DETECTED 08/14/20 19:08 Nasal Parainfluen 4 PCR NOT DETECTED 08/14/20 19:08 Nasal RSV (PCR) NOT DETECTED 08/14/20 19:08 Nasal Screen MRSA (PCR) NEGATIVE (NEGATIVE) 08/14/20 20:30 Nasal B.pertussis DNA PCR NOT DETECTED 08/14/20 19:08 Nasal C.pneumoniae (PCR) NOT DETECTED 08/14/20 19:08 Cipriano Human Metapneumo PCR NOT DETECTED 08/14/20 19:08 Nasal M.pneumoniae (PCR) NOT DETECTED 08/14/20 19:08 Nasal SARS-CoV-2 (PCR) NOT DETECTED 08/14/20 19:08 ABX Reporting Has patient been on IV antibiotics over the past 48 hours?: No
[2020-08-18 08:16] LABS: BASOPHILS # (AUTO) 0.1 10^3/uL (0.0-0.1); BASOPHILS % (AUTO) 0.7 %; EOSINOPHILS # (AUTO) 0.2 10^3/uL (0.0-0.7); EOSINOPHILS % (AUTO) 2.3 %; HGB - HEMOGLOBIN 14.8 g/dL (12.0-16.0); LYMPHOCYTES # (AUTO) 1.6 10^3/uL (1.5-3.5); LYMPHOCYTES % (AUTO) 22.5 %; MEAN CORPUSCULAR HEMOGLOBIN 40.8 pg (27.0-31.0); MEAN CORPUSCULAR HGB CONC 34.6 g/dL (32.0-36.0); MEAN CORPUSCULAR VOLUME 117.9 fL (81.0-99.0); MEAN PLATELET VOLUME 8.9 fL (7.9-10.8); MONOCYTES # (AUTO) 0.6 10^3/uL (0.0-1.0); MONOCYTES % (AUTO) 7.9 %; NEUTROPHILS # (AUTO) 4.6 10^3/uL (1.5-6.6); NEUTROPHILS % (AUTO) 66.3 %; PLT - PLATELET COUNT 248 10^3/uL (130-450); RED BLOOD COUNT 3.63 10^6/uL (4.20-5.40); RED CELL DISTRIBUTION WIDTH 15.2 % (12.0-15.0)
[2020-08-18 08:26] LABS: CALCIUM 8.7 mg/dL (8.5-10.3); CREATININE 0.5 mg/dL (0.4-1.0)
--- NOTE | 2020-08-18 08:36 | XRAY Report ---
PROCEDURE: Chest 1 View X-Ray INDICATIONS: dyspnea. pulm edema. ?improvement TECHNIQUE: One view of the chest was acquired. COMPARISON: 08/16/2020 FINDINGS: Surgical changes and devices: None. Lungs and pleura: There are small bilateral pleural effusion with persistent hazy opacities in bilate ral lung guillen suggestive of pulmonary edema. Underlying bibasilar small infiltrates/atelectasis can not be excluded. No gross pneumothorax. Mediastinum: Mediastinal contours appear normal. Heart size is enlarged. Bones and chest wall: No suspicious bony lesions. Overlying soft tissues appear unremarkable. IMPRESSION: Congestive changes and pulmonary edema with persistent small bilateral pleural effusion and bibasilar atelectasis. No gross pneumothorax. Overall finding is not significantly changed from previous study . Reviewed by: Conner Chow MD on 08/18/2020 8:34 AM PST Approved by: Conner Chow MD on 08/18/2020 8:34 AM PST Station ID: [id number]
[2020-08-18] MEDS: SODIUM CHLORIDE FLUSH 0.9% 10 ML SYRINGE IVP SCH ×3 (08:58→17:10)
[2020-08-18] MEDS: SPIRONOLACTONE 25 MG TABLET PO SCH (09:09)
[2020-08-18] MEDS: METOPROLOL SUCCINATE 25 MG TABLET PO SCH (09:09)
[2020-08-18] MEDS: CHOLECALCIFEROL 5,000 UNIT CAPSULE PO SCH (09:09)
[2020-08-18] MEDS: APIXABAN 5 MG TABLET PO SCH ×2 (09:09→20:16)
[2020-08-18] MEDS: FUROSEMIDE 20 MG/2 ML VIAL IVP SCH ×2 (09:09→17:09)
[2020-08-18] MEDS: polyethylene glycoL 3350 17 GM PACKET PO SCH (09:10)
[2020-08-18] MEDS ORDERED: FUROSEMIDE 20 MG/2 ML VIAL IVP SCH (12:00)
[2020-08-18] MEDS: HYDROXYUREA 500 MG CAPSULE PO SCH (14:22)
--- NOTE | 2020-08-18 18:07 | MRI Report ---
PROCEDURE: Brain W/O INDICATIONS: transient/intermittent vision changes/loss TECHNIQUE: Noncontrast axial T1 spin echo, axial T2 fast spin echo, sagittal and axial FLAIR, coronal T2 fast sp in echo, axial gradient echo, axial diffusion and ADC through the brain. COMPARISON: None. FINDINGS: Image quality: Motion artifact is noted. CSF Spaces: Basal cisterns are patent. No extra-axial fluid collections. Ventricles are normal in size and shape. Brain: No intracranial masses or hemorrhage. Hart/white matter interface is normal. Brainstem appe ars normal. Diffusion-weighted images demonstrate no acute ischemic insult. No chronic ischemic ins ults. Normal intravascular flow voids are present. Skull and face: Calvarium has normal marrow signal. Orbits appear normal. Incidental note is made of bilateral lens replacements. Sinuses: Sinuses and mastoids are clear. IMPRESSION: No findings of acute or subacute infarction are seen. Age-appropriate brain parenchymal volume loss and chronic small vessel ischemic change can be seen. Reviewed by: Spike Sibley MD on 08/18/2020 5:06 PM [facility] Approved by: Spike Sibley MD on 08/18/2020 5:06 PM [facility] Station ID: [id number]
[2020-08-18] MEDS: ATORVASTATIN 10 MG TABLET PO SCH (20:16)
[2020-08-18] MEDS: LATANOPROST 0.005% OPHTH DROPS EACHEYE SCH (20:17)
[2020-08-18] MEDS: NITROFURANTOIN MACROCRYSTAL 50 MG PO SCH (20:17)
[2020-08-18] MEDS: BACLOFEN 10 MG TABLET PO SCH (20:17)
--- NOTE | 2020-08-18 20:17 | PROVIDER PROGRESS NOTE ---
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 I reviewed the rhythm strips and this was V.Tach on top of baseline underlying A. fib. Her a.m. potassium was normal 4.0, no Mag was done then. The BNP has not improved, in fact it went up from 1145 yesterday to 1176 today. Impression: V. tach Acute on chronic systolic heart failure Plan: Will order a trroponin, potassium and magnesium labs to be drawn now and replace if low. Continue to diurese with loop diuretic, continue beta-dulce, ARB and spironolactone. Will add fluid restriction order, since she still has unchanged BNP. She needs CHF teaching from [employer], will order that as well. Follow electrolytes and magnesium daily. Continue telemetry.
[2020-08-18 20:39] LABS: MAGNESIUM 1.9 mg/dL (1.7-2.8)
[2020-08-18] MEDS: LOSARTAN 50 MG TABLET PO SCH (21:04)
[2020-08-18] MEDS: diphenhydrAMINE 25 MG CAPSULE PO PRN (21:08)
[2020-08-19] MEDS: SODIUM CHLORIDE FLUSH 0.9% 10 ML SYRINGE IVP SCH ×4 (01:15→23:45)
[2020-08-19] MEDS: CALCIUM CARBONATE CHEW 500 MG TABLET PO SCH ×4 (06:14→20:27)
[2020-08-19] MEDS: GABAPENTIN 600 MG PO SCH ×3 (06:14→14:20)
[2020-08-19] MEDS: FUROSEMIDE 20 MG/2 ML VIAL IVP SCH ×2 (06:14→14:19)
[2020-08-19 06:17] LABS: BASOPHILS % (AUTO) 0.6 %; EOSINOPHILS # (AUTO) 0.2 10^3/uL (0.0-0.7); EOSINOPHILS % (AUTO) 3.1 %; HGB - HEMOGLOBIN 13.8 g/dL (12.0-16.0); LYMPHOCYTES # (AUTO) 1.7 10^3/uL (1.5-3.5); LYMPHOCYTES % (AUTO) 25.8 %; MEAN CORPUSCULAR HEMOGLOBIN 39.2 pg (27.0-31.0); MEAN CORPUSCULAR HGB CONC 33.5 g/dL (32.0-36.0); MEAN PLATELET VOLUME 8.6 fL (7.9-10.8); MONOCYTES # (AUTO) 0.6 10^3/uL (0.0-1.0); MONOCYTES % (AUTO) 8.8 %; NEUTROPHILS % (AUTO) 61.2 %; PLT - PLATELET COUNT 236 10^3/uL (130-450); RED BLOOD COUNT 3.52 10^6/uL (4.20-5.40); RED CELL DISTRIBUTION WIDTH 15.2 % (12.0-15.0); WHITE BLOOD COUNT 6.5 x10^3/uL (4.8-10.8)
[2020-08-19 06:23] LABS: CALCIUM 8.4 mg/dL (8.5-10.3); CREATININE 0.5 mg/dL (0.4-1.0); MAGNESIUM 1.8 mg/dL (1.7-2.8)
[2020-08-19 06:44] LABS: PLATELET ESTIMATE, MANUAL NORMAL (130-450,000) (NORMAL)
--- NOTE | 2020-08-19 07:52 | PROVIDER PROGRESS NOTE ---
Assessment/Plan - Problem List (1) Acute on chronic systolic heart failure Assessment/Plan: Patient's BNP today was 1042. Yesterday it was 1176. We will continue diuresing with Lasix 20 mg IV Twice daily and spironolactone 25 mg p.o. daily. Patient also received losartan 25 mg p.o. daily Continue metoprolol succinate 50 mg p.o. daily Fluid restrictions ordered. The patient can only have a total of 1800 mils of fluid in a day With a sodium limit of 2 g. The patient's family picked 2 jail facilities in [place]. plant operations coordinator has made referrals to these facilities. Awaiting feedback. (2) Atrial flutter with rapid ventricular response Assessment/Plan: Continue metoprolol succinate 50 mg p.o. daily and Eliquis 5mg po bid. (3) Elevated serum free T4 level Assessment/Plan: Patient Will need follow-up with endocrinology upon discharge. (4) Pleural effusion due to CHF (congestive heart failure) Assessment/Plan: CXR done this morning did not show any significant change in her pulmonary edema status. We will continue active Diuresis with Lasix, spironolactone. Fluid restriction for a total of 1800 has been ordered. Sodium restriction of less than 2 g has been ordered. Dietary to educate patient on CHF. (5) V tach Assessment/Plan: No recurrence since last occurrence. We will continue to monitor patient on telemetry. Patient's magnesium level is within normal limit. - Current Meds Current Meds: Current Medications Generic Name Dose Route Start Last Admin Trade Name Ryanq PRN Reason Stop Dose Admin Apixaban 5 mg 08/15/20 21:00 08/18/20 20:16 Apixaban 5 Mg Tablet PO 5 mg BID REESE Administration Atorvastatin Calcium 5 mg 08/14/20 23:00 08/18/20 20:16 Atorvastatin 10 Mg Tablet PO 5 mg QPM REESE Administration Baclofen 10 - 20 mg 08/14/20 23:00 08/18/20 20:17 Baclofen 10 Mg Tablet PO 20 mg QPM REESE Administration Calcium Carbonate/Glycine 500 mg 08/15/20 18:00 08/18/20 20:18 Calcium Carbonate Chew 500 Mg Tablet PO 500 mg TID REESE Administration Cholecalciferol 5,000 unit 08/16/20 09:00 08/18/20 09:09 Cholecalciferol 5,000 Unit Capsule PO 5,000 unit DAILY REESE Administration Diphenhydramine HCl 25 mg 08/17/20 21:13 08/18/20 21:08 Diphenhydramine 25 Mg Capsule PO 25 mg QPM PRN Administration Insomnia Furosemide 20 mg 08/18/20 17:00 08/19/20 06:14 Furosemide 20 Mg/2 Ml Vial IVP 20 mg BIDDIURETIC REESE Administration Hydroxyurea 500 mg 08/16/20 15:00 08/18/20 14:22 Hydroxyurea 500 Mg Capsule PO 500 mg 1400 REESE Administration Latanoprost 1 drops 08/15/20 21:00 08/18/20 20:17 Latanoprost 0.005% Ophth Drops EACHEYE 1 drops QPM REESE Administration Losartan Potassium 25 mg 08/18/20 21:00 08/18/20 21:04 Losartan 50 Mg Tablet PO 25 mg QPM REESE Administration Metoclopramide HCl 5 mg 08/14/20 20:51 08/15/20 00:46 Metoclopramide 10 Mg/2 Ml Vial IVP 5 mg Q6HR PRN Administration Nausea / Vomiting Metoprolol Succinate 50 mg 08/17/20 09:00 08/18/20 09:09 Metoprolol Succinate 25 Mg Tablet PO 50 mg DAILY REESE Administration Non-Formulary Medication 50 mg 08/14/20 22:35 08/18/20 20:17 Nitrofurantoin Macrocrystal [Macrodantin] PO 50 mg QPM REESE Administration Non Formulary Med 600 each 08/16/20 15:00 08/18/20 20:18 Gabapentin 600mg PO 600 each TID REESE Administration Combingan 0.2-0.5% 1 each 08/16/20 09:00 08/18/20 09:11 Eye Drops EACHEYE 1 each DAILY REESE Administration Polyethylene Glycol 17 gm 08/15/20 09:00 08/18/20 09:10 Polyethylene Glycol 3350 17 Gm Packet PO 17 gm DAILY REESE Administration Sodium Chloride 10 ml 08/15/20 01:00 08/19/20 01:15 Sodium Chloride Flush 0.9% 10 Ml Syringe IVP 10 ml 0100,0900,1700 REESE Administration Spironolactone 25 mg 08/17/20 09:00 08/18/20 09:09 Spironolactone 25 Mg Tablet PO 25 mg DAILY REESE Administration - Lab Result Fish Bone Diagrams: 08/19/20 06:10 08/20/20 05:54 - Additional Planning My Orders: My Active Orders 08/18/20 Dinner Dysphagia Advanced Diet [DIET] 08/18/20 17:00 FUROSEMIDE INJ 20mg VIAL [LASIX INJ 20mg VIAL] 20 mg IVP BIDDIURETIC 08/18/20 19:01 Fluid Restriction [RC] ONCE 08/20/20 05:00 BMP - BASIC METABOLIC PANEL [CHEM] DAILYLAB CBC - COMP BLD CT W/AUTO DIFF [HEME] DAILYLAB 08/21/20 05:00 BMP - BASIC METABOLIC PANEL [CHEM] DAILYLAB CBC - COMP BLD CT W/AUTO DIFF [HEME] DAILYLAB Subjective - Subjective Patient Reports: Other (Patient appears to have some conversational dyspnea in the time of exam. However she is never hypoxic. Her lower extremity edema has significantly improved. She has some mild crackles upon auscultation. She denies chest pain, abdominal pain, fever or chills.) Objective Vital Signs: Vital Signs - 24 hr 08/18/20 08/18/20 08/18/20 10:58 12:30 14:45 Temperature Heart Rate [ Brachial] Heart Rate [ 85 92 123 H Monitoring electrodes] Respiratory 19 20 24 Rate Blood Pressure 99/69 106/64 [Right Brachial artery] O2 Saturation 95 95 96 08/18/20 08/18/20 08/19/20 16:09 19:46 01:12 Temperature 36.6 C 36.8 C 36.8 C Heart Rate [ Brachial] Heart Rate [ 84 118 H 118 H Monitoring electrodes] Respiratory 18 20 16 Rate Blood Pressure 120/70 103/66 110/76 [Right Brachial artery] O2 Saturation 93 93 92 08/19/20 06:19 Temperature 36.8 C Heart Rate [ 81 Brachial] Heart Rate [ Monitoring electrodes] Respiratory 16 Rate Blood Pressure 129/63 [Right Brachial artery] O2 Saturation 92 Oxygen O2 Source Room air I&O (Last 24 Hrs): Intake and Output Totals x24h 08/17/20 08/18/20 08/19/20 23:59 23:59 23:59 Intake Total 725 1065 Output Total 2029 2900 300 Balance -1305 -1835 -300 General: Alert, Oriented x3, Mild distress HEENT: PERRLA, EOMI Neck: No JVD Neuro: Alert, Oriented Times 3 Cardiovascular: Other (Irregularly irregular) Respiratory: Other (Mild crackles. Mild dyspnea.) Abdomen: Normal bowel sounds, Soft, No tenderness Extremities: No cyanosis, Other (2+ edema. This is an improvement from previous days.) Skin: No rashes - Results Results: Laboratory Results WBC 6.5 x10^3/uL (4.8-10.8) 08/19/20 06:10 RBC 3.52 10^6/uL (4.20-5.40) L 08/19/20 06:10 Hgb 13.8 g/dL (12.0-16.0) 08/19/20 06:10 Hct 41.2 % (37.0-47.0) 08/19/20 06:10 MCV 117.0 fL (81.0-99.0) H 08/19/20 06:10 MCH 39.2 pg (27.0-31.0) H 08/19/20 06:10 MCHC 33.5 g/dL (32.0-36.0) 08/19/20 06:10 RDW 15.2 % (12.0-15.0) H 08/19/20 06:10 Plt Count 236 10^3/uL (130-450) 08/19/20 06:10 MPV 8.6 fL (7.9-10.8) 08/19/20 06:10 Neut # (Auto) 4.0 10^3/uL (1.5-6.6) 08/19/20 06:10 Lymph # (Auto) 1.7 10^3/uL (1.5-3.5) 08/19/20 06:10 [place] # (Auto) 0.6 10^3/uL (0.0-1.0) 08/19/20 06:10 Eos # (Auto) 0.2 10^3/uL (0.0-0.7) 08/19/20 06:10 Baso # (Auto) 0.0 10^3/uL (0.0-0.1) 08/19/20 06:10 Absolute Nucleated RBC 0.00 x10^3/uL 08/19/20 06:10 Nucleated RBC % 0.0 /100WBC 08/19/20 06:10 Manual Slide Review Indicated 08/19/20 06:10 Platelet Estimate NORMAL (130-450,000) (NORMAL) 08/19/20 06:10 Platelet Morphology NORMAL APPEARANCE (NORMAL) 08/14/20 16:15 RBC Morph Micro Appear 3+ MACROCYTOSIS (NORMAL) 1+ HYPOCHROMASIA (NORMAL) 08/19/20 06:10 RBC Morph Micro Appear 3+ MACROCYTOSIS (NORMAL) 1+ HYPOCHROMASIA (NORMAL) 08/19/20 06:10 VBG pH 7.311 (7.31-7.41) 08/15/20 04:43 Ionized Calcium 1.06 mmol/L (1.15-1.33) L 08/15/20 04:43 Sodium 137 mmol/L (135-145) 08/19/20 06:10 Potassium 4.2 mmol/L (3.5-5.0) 08/19/20 06:10 Chloride 98 mmol/L (101-111) L 08/19/20 06:10 Carbon Dioxide 31 mmol/L (21-32) 08/19/20 06:10 Anion Gap 8.0 (6-13) 08/19/20 06:10 BUN 10 mg/dL (6-20) 08/19/20 06:10 Creatinine 0.5 mg/dL (0.4-1.0) 08/19/20 06:10 Estimated GFR (MDRD) 118 (>89) 08/19/20 06:10 Glucose 100 mg/dL (70-100) 08/19/20 06:10 Estimat Average Glucose 88 mg/dL (70-100) 08/14/20 16:15 Hemoglobin A1c % 4.7 % (4.27-6.07) 08/14/20 16:15 Calcium 8.4 mg/dL (8.5-10.3) L 08/19/20 06:10 Ionized Calcium YES 08/15/20 04:43 Phosphorus 4.7 mg/dL (2.5-4.6) H 08/14/20 16:15 Magnesium 1.8 mg/dL (1.7-2.8) 08/19/20 06:10 Total Bilirubin 0.8 mg/dL (0.2-1.0) 08/15/20 04:43 AST 29 IU/L (10-42) 08/15/20 04:43 ALT 52 IU/L (10-60) 08/15/20 04:43 Alkaline Phosphatase 93 IU/L (42-121) 08/15/20 04:43 Troponin I High Sens 17.3 ng/L (2.3-14.8) H* 08/18/20 20:20 B-Natriuretic Peptide 1052 pg/mL (5-100) H 08/19/20 06:10 Total Protein 5.9 g/dL (6.7-8.2) L 08/15/20 04:43 Albumin 3.2 g/dL (3.2-5.5) 08/15/20 04:43 Globulin 2.7 g/dL (2.1-4.2) 08/15/20 04:43 Albumin/Globulin Ratio 1.2 (1.0-2.2) 08/15/20 04:43 Lipase 22 U/L (22-51) 08/14/20 16:15 TSH 2.03 uIU/mL (0.34-5.60) 08/14/20 16:15 Free T4 5.47 ng/dL (0.58-1.64) H 08/15/20 04:43 Free T3 pg/mL 8.70 pg/mL (2.5-3.9) H 08/15/20 04:43 PTH Intact 56 pg/mL (12-88) 08/15/20 04:43 Urine Color YELLOW 08/14/20 20:50 Urine Clarity CLEAR (CLEAR) 08/14/20 20:50 Urine pH 5.5 PH (5.0-7.5) 08/14/20 20:50 Ur Specific [place] 1.025 (1.002-1.030) 08/14/20 20:50 Urine Protein NEGATIVE mg/dL (NEGATIVE) 08/14/20 20:50 Urine Glucose (UA) NEGATIVE mg/dL (NEGATIVE) 08/14/20 20:50 Urine Ketones TRACE mg/dL (NEGATIVE) 08/14/20 20:50 Urine Occult Blood NEGATIVE (NEGATIVE) 08/14/20 20:50 Urine Nitrite NEGATIVE (NEGATIVE) 08/14/20 20:50 Urine Bilirubin NEGATIVE (NEGATIVE) 08/14/20 20:50 Urine Urobilinogen 0.2 (NORMAL) E.U./dL (NORMAL) 08/14/20 20:50 Ur Leukocyte Esterase NEGATIVE (NEGATIVE) 08/14/20 20:50 Ur Microscopic Review NOT INDICATED 08/14/20 20:50 Urine Culture Comments NOT INDICATED 08/14/20 20:50 Urine Sodium < 12.0 mmol/L 08/14/20 20:50 Nasal Adenovirus (PCR) NOT DETECTED 08/14/20 19:08 Nasal B. parapertussis DNA (PCR) NOT DETECTED 08/14/20 19:08 Nasal Coronavir 229E PCR NOT DETECTED 08/14/20 19:08 Nasal Coronavir HKU1 PCR NOT DETECTED 08/14/20 19:08 Nasal Coronavir NL63 PCR NOT DETECTED 08/14/20 19:08 Nasal Coronavir OC43 PCR NOT DETECTED 08/14/20 19:08 Nasal Enterovir/Rhinovir PCR NOT DETECTED 08/14/20 19:08 Nasal Influenza B PCR NOT DETECTED 08/14/20 19:08 Nasal Influenza A PCR NOT DETECTED 08/14/20 19:08 Nasal Parainfluen 1 PCR NOT DETECTED 08/14/20 19:08 Nasal Parainfluen 2 PCR NOT DETECTED 08/14/20 19:08 Nasal Parainfluen 3 PCR NOT DETECTED 08/14/20 19:08 Nasal Parainfluen 4 PCR NOT DETECTED 08/14/20 19:08 Nasal RSV (PCR) NOT DETECTED 08/14/20 19:08 Nasal Screen MRSA (PCR) NEGATIVE (NEGATIVE) 08/14/20 20:30 Nasal B.pertussis DNA PCR NOT DETECTED 08/14/20 19:08 Nasal C.pneumoniae (PCR) NOT DETECTED 08/14/20 19:08 [place] Human Metapneumo PCR NOT DETECTED 08/14/20 19:08 Nasal M.pneumoniae (PCR) NOT DETECTED 08/14/20 19:08 Nasal SARS-CoV-2 (PCR) NOT DETECTED 08/14/20 19:08 ABX Reporting Has patient been on IV antibiotics over the past 48 hours?: No
[2020-08-19] MEDS: APIXABAN 5 MG TABLET PO SCH ×2 (08:08→20:26)
[2020-08-19] MEDS: CHOLECALCIFEROL 5,000 UNIT CAPSULE PO SCH (08:08)
[2020-08-19] MEDS: SPIRONOLACTONE 25 MG TABLET PO SCH (08:09)
[2020-08-19] MEDS: METOPROLOL SUCCINATE 25 MG TABLET PO SCH (08:10)
[2020-08-19] MEDS: polyethylene glycoL 3350 17 GM PACKET PO SCH (08:11)
[2020-08-19] MEDS: HYDROXYUREA 500 MG CAPSULE PO SCH (14:20)
[2020-08-19] MEDS: LOSARTAN 50 MG TABLET PO SCH (20:25)
[2020-08-19] MEDS: BACLOFEN 10 MG TABLET PO SCH (20:26)
[2020-08-19] MEDS: ATORVASTATIN 10 MG TABLET PO SCH (20:26)
[2020-08-19] MEDS: NITROFURANTOIN MACROCRYSTAL 50 MG PO SCH (20:27)
[2020-08-19] MEDS: LATANOPROST 0.005% OPHTH DROPS EACHEYE SCH (20:29)
[2020-08-19] MEDS: diphenhydrAMINE 25 MG CAPSULE PO PRN (20:36)
[2020-08-19] MEDS ORDERED: NON FORMULARY MED PO SCH (21:00)
[2020-08-20] MEDS: FUROSEMIDE 20 MG/2 ML VIAL IVP SCH (06:30)
[2020-08-20 06:41] LABS: CALCIUM 8.7 mg/dL (8.5-10.3); CREATININE 0.6 mg/dL (0.4-1.0); MAGNESIUM 1.9 mg/dL (1.7-2.8)
--- NOTE | 2020-08-20 08:42 | PROVIDER PROGRESS NOTE ---
Assessment/Plan - Problem List (1) Acute on chronic systolic heart failure Assessment/Plan: Patient's BNP today was 814. Yesterday it was 1042. Chest x-ray today showed significant improvement in patient's pulmonary edema. We will continue diuresing with Lasix 20 mg po twice daily and spironolactone 25 mg p.o. daily. Patient also received losartan 25 mg p.o. daily Continue metoprolol succinate 50 mg p.o. daily Continue fluid and sodium restriction. The patient's family picked 2 [facility] facilities in [place]. medical staff services coordinator has made referrals to these facilities. Awaiting feedback. (3) Elevated serum free T4 level Assessment/Plan: Patient Will need follow-up with endocrinology upon discharge. (4) Pleural effusion due to CHF (congestive heart failure) Assessment/Plan: Patient's BNP today was 814. Yesterday it was 1042. Chest x-ray today showed significant improvement in patient's pulmonary edema. We will continue diuresing with Lasix 20 mg po twice daily and spironolactone 25 mg p.o. daily. Patient also received losartan 25 mg p.o. daily Continue metoprolol succinate 50 mg p.o. daily Continue fluid and sodium restriction. (5) V tach Assessment/Plan: No recurrence since last occurrence 08/18/20. We will continue to monitor patient on telemetry. Patient's magnesium level is within normal limit. (6) Chest tightness Assessment/Plan: This is likely musculoskeletal. Troponin today was 18. 2 days ago it was 17. Chest x-ray showed significant improvement in vascular congestion. EKG showed atrial fibrillation as reflected on telemetry over the past several days. Will encourage Tylenol, oxycodone and Flexeril as needed to help with discomfort. - Current Meds Current Meds: Current Medications Generic Name Dose Route Start Last Admin Trade Name Freq PRN Reason Stop Dose Admin Apixaban 5 mg 08/15/20 21:00 08/19/20 20:26 Apixaban 5 Mg Tablet PO 5 mg BID REESE Administration Atorvastatin Calcium 5 mg 08/14/20 23:00 08/19/20 20:26 Atorvastatin 10 Mg Tablet PO 5 mg QPM REESE Administration Baclofen 10 - 20 mg 08/14/20 23:00 08/19/20 20:26 Baclofen 10 Mg Tablet PO 10 mg QPM REESE Administration Calcium Carbonate/Glycine 500 mg 08/19/20 21:00 08/19/20 20:27 Calcium Carbonate Chew 500 Mg Tablet PO 500 mg 0900,1300,2100 REESE Administration Cholecalciferol 5,000 unit 08/16/20 09:00 08/19/20 08:08 Cholecalciferol 5,000 Unit Capsule PO 5,000 unit DAILY REESE Administration Diphenhydramine HCl 25 mg 08/17/20 21:13 08/19/20 20:36 Diphenhydramine 25 Mg Capsule PO 25 mg QPM PRN Administration Insomnia Furosemide 20 mg 08/18/20 17:00 08/20/20 06:30 Furosemide 20 Mg/2 Ml Vial IVP 20 mg BIDDIURETIC REESE Administration Hydroxyurea 500 mg 08/16/20 15:00 08/19/20 14:20 Hydroxyurea 500 Mg Capsule PO 500 mg 1400 ERESE Administration Latanoprost 1 drops 08/15/20 21:00 08/19/20 20:29 Latanoprost 0.005% Ophth Drops EACHEYE 1 drops QPM REESE Administration Losartan Potassium 25 mg 08/18/20 21:00 08/19/20 20:25 Losartan 50 Mg Tablet PO 25 mg QPM REESE Administration Metoclopramide HCl 5 mg 08/14/20 20:51 08/15/20 00:46 Metoclopramide 10 Mg/2 Ml Vial IVP 5 mg Q6HR PRN Administration Nausea / Vomiting Metoprolol Succinate 50 mg 08/17/20 09:00 08/19/20 08:10 Metoprolol Succinate 25 Mg Tablet PO 50 mg DAILY RESEE Administration Non-Formulary Medication 50 mg 08/14/20 22:35 08/19/20 20:27 Nitrofurantoin Macrocrystal [Macrodantin] PO 50 mg QPM REESE Administration [place] 0.2-0.5% 1 each 08/16/20 09:00 08/20/20 08:34 Eye Drops EACHEYE 1 each DAILY REESE Administration Polyethylene Glycol 17 gm 08/15/20 09:00 08/19/20 08:11 Polyethylene Glycol 3350 17 Gm Packet PO 17 gm DAILY REESE Administration Sodium Chloride 10 ml 08/15/20 01:00 08/19/20 23:45 Sodium Chloride Flush 0.9% 10 Ml Syringe IVP 10 ml 0100,0900,1700 REESE Administration Sodium Chloride 10 ml 08/14/20 18:29 08/20/20 06:30 Sodium Chloride Flush 0.9% 10 Ml Syringe IVP 10 ml PRN PRN Administration NEEDED PER PROVIDER ORDERS Spironolactone 25 mg 08/17/20 09:00 08/19/20 08:09 Spironolactone 25 Mg Tablet PO 25 mg DAILY REESE Administration - Lab Result Fish Bone Diagrams: 08/19/20 06:10 08/20/20 05:54 Subjective - Subjective Patient Reports: Other (Patient complains of chest tightness this morning. Her apparent conversational dyspnea persists. However she remains is not hypoxic) Objective Vital Signs: Vital Signs - 24 hr 08/19/20 08/19/20 08/19/20 13:00 16:05 21:00 Temperature 36.6 C 36.2 C L 36.3 C L Heart Rate [ 60 97 Brachial] Heart Rate [ 98 Monitoring electrodes] Respiratory 18 18 18 Rate Blood Pressure 126/64 103/75 126/79 [Right Brachial artery] O2 Saturation 93 93 95 08/19/20 08/19/20 08/20/20 23:45 23:46 06:24 Temperature 36.7 C 36.7 C Heart Rate [ 56 L 89 Brachial] Heart Rate [ Monitoring electrodes] Respiratory 17 10 L 17 Rate Blood Pressure 113/70 105/72 [Right Brachial artery] O2 Saturation 92 93 08/20/20 08/20/20 06:27 08:33 Temperature 36.5 C Heart Rate [ 59 L Brachial] Heart Rate [ Monitoring electrodes] Respiratory 20 Rate Blood Pressure 122/88 H 118/78 [Right Brachial artery] O2 Saturation 93 Oxygen O2 Source Room air I&O (Last 24 Hrs): Intake and Output Totals x24h 08/18/20 08/19/20 08/20/20 23:59 23:59 23:59 Intake Total 1065 1165 Output Total 2900 1650 1800 Balance -1835 -485 -1800 General: Alert, Oriented x3, Mild distress HEENT: Atraumatic, PERRLA, EOMI Neck: Supple, No JVD Neuro: Alert, Oriented Times 3 Cardiovascular: Other (Irregularly irregular heart rhythm. Regular heart rate) Respiratory: Other (Mild crackles. Mild labored breathing.) Abdomen: Normal bowel sounds, Soft, No tenderness Extremities: No cyanosis, Other (Lower extremity edema continues to improve.) Skin: No rashes - Results Results: Laboratory Results WBC 6.5 x10^3/uL (4.8-10.8) 08/19/20 06:10 RBC 3.52 10^6/uL (4.20-5.40) L 08/19/20 06:10 Hgb 13.8 g/dL (12.0-16.0) 08/19/20 06:10 Hct 41.2 % (37.0-47.0) 08/19/20 06:10 MCV 117.0 fL (81.0-99.0) H 08/19/20 06:10 MCH 39.2 pg (27.0-31.0) H 08/19/20 06:10 MCHC 33.5 g/dL (32.0-36.0) 08/19/20 06:10 RDW 15.2 % (12.0-15.0) H 08/19/20 06:10 Plt Count 236 10^3/uL (130-450) 08/19/20 06:10 MPV 8.6 fL (7.9-10.8) 08/19/20 06:10 Neut # (Auto) 4.0 10^3/uL (1.5-6.6) 08/19/20 06:10 Lymph # (Auto) 1.7 10^3/uL (1.5-3.5) 08/19/20 06:10 [place] # (Auto) 0.6 10^3/uL (0.0-1.0) 08/19/20 06:10 Eos # (Auto) 0.2 10^3/uL (0.0-0.7) 08/19/20 06:10 Baso # (Auto) 0.0 10^3/uL (0.0-0.1) 08/19/20 06:10 Absolute Nucleated RBC 0.00 x10^3/uL 08/19/20 06:10 Nucleated RBC % 0.0 /100WBC 08/19/20 06:10 Manual Slide Review Indicated 08/19/20 06:10 Platelet Estimate NORMAL (130-450,000) (NORMAL) 08/19/20 06:10 Platelet Morphology NORMAL APPEARANCE (NORMAL) 08/14/20 16:15 RBC Morph Micro Appear 3+ MACROCYTOSIS (NORMAL) 1+ HYPOCHROMASIA (NORMAL) 08/19/20 06:10 RBC Morph Micro Appear 3+ MACROCYTOSIS (NORMAL) 1+ HYPOCHROMASIA (NORMAL) 08/19/20 06:10 VBG pH 7.311 (7.31-7.41) 08/15/20 04:43 Ionized Calcium 1.06 mmol/L (1.15-1.33) L 08/15/20 04:43 Sodium 135 mmol/L (135-145) 08/20/20 05:54 Potassium 4.6 mmol/L (3.5-5.0) 08/20/20 05:54 Chloride 97 mmol/L (101-111) L 08/20/20 05:54 Carbon Dioxide 32 mmol/L (21-32) 08/20/20 05:54 Anion Gap 6.0 (6-13) 08/20/20 05:54 BUN 12 mg/dL (6-20) 08/20/20 05:54 Creatinine 0.6 mg/dL (0.4-1.0) 08/20/20 05:54 Estimated GFR (MDRD) 95 (>89) 08/20/20 05:54 Glucose 98 mg/dL (70-100) 08/20/20 05:54 Estimat Average Glucose 88 mg/dL (70-100) 08/14/20 16:15 Hemoglobin A1c % 4.7 % (4.27-6.07) 08/14/20 16:15 Calcium 8.7 mg/dL (8.5-10.3) 08/20/20 05:54 Ionized Calcium YES 08/15/20 04:43 Phosphorus 4.7 mg/dL (2.5-4.6) H 08/14/20 16:15 Magnesium 1.9 mg/dL (1.7-2.8) 08/20/20 05:54 Total Bilirubin 0.8 mg/dL (0.2-1.0) 08/15/20 04:43 AST 29 IU/L (10-42) 08/15/20 04:43 ALT 52 IU/L (10-60) 08/15/20 04:43 Alkaline Phosphatase 93 IU/L (42-121) 08/15/20 04:43 Troponin I High Sens 17.3 ng/L (2.3-14.8) H* 08/18/20 20:20 B-Natriuretic Peptide 814 pg/mL (5-100) H 08/20/20 05:54 Total Protein 5.9 g/dL (6.7-8.2) L 08/15/20 04:43 Albumin 3.2 g/dL (3.2-5.5) 08/15/20 04:43 Globulin 2.7 g/dL (2.1-4.2) 08/15/20 04:43 Albumin/Globulin Ratio 1.2 (1.0-2.2) 08/15/20 04:43 Lipase 22 U/L (22-51) 08/14/20 16:15 TSH 2.03 uIU/mL (0.34-5.60) 08/14/20 16:15 Free T4 5.47 ng/dL (0.58-1.64) H 08/15/20 04:43 Free T3 pg/mL 8.70 pg/mL (2.5-3.9) H 08/15/20 04:43 PTH Intact 56 pg/mL (12-88) 08/15/20 04:43 Urine Color YELLOW 08/14/20 20:50 Urine Clarity CLEAR (CLEAR) 08/14/20 20:50 Urine pH 5.5 PH (5.0-7.5) 08/14/20 20:50 Ur Specific [place] 1.025 (1.002-1.030) 08/14/20 20:50 Urine Protein NEGATIVE mg/dL (NEGATIVE) 08/14/20 20:50 Urine Glucose (UA) NEGATIVE mg/dL (NEGATIVE) 08/14/20 20:50 Urine Ketones TRACE mg/dL (NEGATIVE) 08/14/20 20:50 Urine Occult Blood NEGATIVE (NEGATIVE) 08/14/20 20:50 Urine Nitrite NEGATIVE (NEGATIVE) 08/14/20 20:50 Urine Bilirubin NEGATIVE (NEGATIVE) 08/14/20 20:50 Urine Urobilinogen 0.2 (NORMAL) E.U./dL (NORMAL) 08/14/20 20:50 Ur Leukocyte Esterase NEGATIVE (NEGATIVE) 08/14/20 20:50 Ur Microscopic Review NOT INDICATED 08/14/20 20:50 Urine Culture Comments NOT INDICATED 08/14/20 20:50 Urine Sodium < 12.0 mmol/L 08/14/20 20:50 Nasal Adenovirus (PCR) NOT DETECTED 08/14/20 19:08 Nasal B. parapertussis DNA (PCR) NOT DETECTED 08/14/20 19:08 Nasal Coronavir 229E PCR NOT DETECTED 08/14/20 19:08 Nasal Coronavir HKU1 PCR NOT DETECTED 08/14/20 19:08 Nasal Coronavir NL63 PCR NOT DETECTED 08/14/20 19:08 Nasal Coronavir OC43 PCR NOT DETECTED 08/14/20 19:08 Nasal Enterovir/Rhinovir PCR NOT DETECTED 08/14/20 19:08 Nasal Influenza B PCR NOT DETECTED 08/14/20 19:08 Nasal Influenza A PCR NOT DETECTED 08/14/20 19:08 Nasal Parainfluen 1 PCR NOT DETECTED 08/14/20 19:08 Nasal Parainfluen 2 PCR NOT DETECTED 08/14/20 19:08 Nasal Parainfluen 3 PCR NOT DETECTED 08/14/20 19:08 Nasal Parainfluen 4 PCR NOT DETECTED 08/14/20 19:08 Nasal RSV (PCR) NOT DETECTED 08/14/20 19:08 Nasal Screen MRSA (PCR) NEGATIVE (NEGATIVE) 08/14/20 20:30 Nasal B.pertussis DNA PCR NOT DETECTED 08/14/20 19:08 Nasal C.pneumoniae (PCR) NOT DETECTED 08/14/20 19:08 [place] Human Metapneumo PCR NOT DETECTED 08/14/20 19:08 Nasal M.pneumoniae (PCR) NOT DETECTED 08/14/20 19:08 Nasal SARS-CoV-2 (PCR) NOT DETECTED 08/14/20 19:08 ABX Reporting Has patient been on IV antibiotics over the past 48 hours?: No
[2020-08-20] MEDS: APIXABAN 5 MG TABLET PO SCH ×2 (09:19→20:21)
[2020-08-20] MEDS: CHOLECALCIFEROL 5,000 UNIT CAPSULE PO SCH (09:20)
[2020-08-20] MEDS: METOPROLOL SUCCINATE 25 MG TABLET PO SCH (09:22)
[2020-08-20] MEDS: SPIRONOLACTONE 25 MG TABLET PO SCH (09:22)
[2020-08-20] MEDS: CALCIUM CARBONATE CHEW 500 MG TABLET PO SCH ×3 (09:23→20:20)
[2020-08-20] MEDS: GABAPENTIN 300 MG CAPSULE PO SCH ×4 (09:23→20:22)
[2020-08-20] MEDS: polyethylene glycoL 3350 17 GM PACKET PO SCH (09:30)
--- NOTE | 2020-08-20 13:08 | XRAY Report ---
PROCEDURE: Chest 1 View X-Ray INDICATIONS: dyspnea, chest tightness TECHNIQUE: One view of the chest was acquired. COMPARISON: 08/18/2020, 08/16/2020, and 08/14/2020. Correlation is also made with chest CT, 08/14/2020. FINDINGS: Surgical changes and devices: There is a right axillary clip. Lungs and pleura: There is improved abnormal opacity seen at both lung bases. Small bilateral pleura l effusions are seen. No allen pneumothorax can be seen. Mediastinum: Mediastinal contours appear normal. Heart size is normal. Bones and chest wall: No suspicious bony lesions. Age-appropriate degenerative changes are seen. Overlying soft tissues appear unremarkable. IMPRESSION: Improved opacity seen at both lung bases. Small bilateral pleural effusions are seen. Reviewed by: Spike Sibley MD on 08/20/2020 12:06 PM [place] Approved by: Spike Sibley MD on 08/20/2020 12:06 PM [facility] [[email or web address]] Station ID: [id number]
[2020-08-20] MEDS: FUROSEMIDE 20 MG TABLET PO SCH (13:29)
[2020-08-20] MEDS: SODIUM CHLORIDE FLUSH 0.9% 10 ML SYRINGE IVP SCH ×2 (13:30→18:26)
[2020-08-20] MEDS: HYDROXYUREA 500 MG CAPSULE PO SCH (13:30)
[2020-08-20] MEDS: LATANOPROST 0.005% OPHTH DROPS EACHEYE SCH (20:19)
[2020-08-20] MEDS: BACLOFEN 10 MG TABLET PO SCH (20:20)
[2020-08-20] MEDS: diphenhydrAMINE 25 MG CAPSULE PO PRN (20:20)
[2020-08-20] MEDS: ATORVASTATIN 10 MG TABLET PO SCH (20:21)
[2020-08-20] MEDS: LOSARTAN 50 MG TABLET PO SCH (20:21)
[2020-08-20] MEDS: NITROFURANTOIN MACROCRYSTAL 50 MG PO SCH (20:22)
[2020-08-21] MEDS: FUROSEMIDE 20 MG TABLET PO SCH ×2 (07:17→13:39)
[2020-08-21] MEDS: GABAPENTIN 300 MG CAPSULE PO SCH ×3 (09:11→20:56)
[2020-08-21] MEDS: SPIRONOLACTONE 25 MG TABLET PO SCH (09:11)
[2020-08-21] MEDS: CHOLECALCIFEROL 5,000 UNIT CAPSULE PO SCH (09:12)
[2020-08-21] MEDS: APIXABAN 5 MG TABLET PO SCH ×2 (09:12→20:52)
[2020-08-21] MEDS: CALCIUM CARBONATE CHEW 500 MG TABLET PO SCH ×3 (09:12→21:05)
[2020-08-21] MEDS: METOPROLOL SUCCINATE 25 MG TABLET PO SCH (09:12)
[2020-08-21] MEDS: polyethylene glycoL 3350 17 GM PACKET PO SCH (09:15)
--- NOTE | 2020-08-21 11:34 | PROVIDER PROGRESS NOTE ---
Assessment/Plan - Problem List (1) Acute on chronic systolic heart failure Assessment/Plan: Patient's BNP today was 749. Yesterday it was 814. We will continue diuresing with Lasix 20 mg po twice daily and spironolactone 25 mg p.o. daily. Patient also received losartan 25 mg p.o. daily Continue metoprolol succinate 50 mg p.o. daily Continue fluid and sodium restriction. I had a 1.5hr family conference with the patient's children and . I highlighted the patient's current medical conditions and the amount of care she would need. The value analysis coordinator and the social care worker were present. I answered any questions they had. Decided on home with home health: PT, OT, group home counselor and nursing. They will work on getting hospital bed, a lift ready at home in [place] (2) Atrial flutter with rapid ventricular response Assessment/Plan: Continue metoprolol succinate 50 mg p.o. daily and Eliquis 5mg po bid. (3) Elevated serum free T4 level Assessment/Plan: Patient Will need follow-up with endocrinology upon discharge. (4) Pleural effusion due to CHF (congestive heart failure) Assessment/Plan: Pleural effusion continues to improve with diuresis. We will continue active Diuresis with Lasix, spironolactone. Fluid restriction for a total of 1800 has been ordered. Sodium restriction of less than 2 g has been ordered. (5) V tach Assessment/Plan: Non-sustained. No new occurrences today. (6) Chest tightness Assessment/Plan: Work-up for cardiac causes which included EKG and troponin were unremarkable. Likely muskuloskeletal. Continue as needed pain medications and muscle relaxant. - Current Meds Current Meds: Current Medications Generic Name Dose Route Start Last Admin Trade Name Freq PRN Reason Stop Dose Admin Apixaban 5 mg 08/15/20 21:00 08/21/20 09:12 Apixaban 5 Mg Tablet PO 5 mg BID REESE Administration Atorvastatin Calcium 5 mg 08/14/20 23:00 08/20/20 20:21 Atorvastatin 10 Mg Tablet PO 5 mg QPM REESE Administration Baclofen 10 - 20 mg 08/14/20 23:00 08/20/20 20:20 Baclofen 10 Mg Tablet PO 10 mg QPM REESE Administration Calcium Carbonate/Glycine 500 mg 08/19/20 21:00 08/21/20 09:12 Calcium Carbonate Chew 500 Mg Tablet PO 500 mg 0900,1300,2100 REESE Administration Cholecalciferol 5,000 unit 08/16/20 09:00 08/21/20 09:12 Cholecalciferol 5,000 Unit Capsule PO 5,000 unit DAILY REESE Administration Diphenhydramine HCl 25 mg 08/17/20 21:13 08/20/20 20:20 Diphenhydramine 25 Mg Capsule PO 25 mg QPM PRN Administration Insomnia Furosemide 20 mg 08/20/20 14:00 08/21/20 07:17 Furosemide 20 Mg Tablet PO 20 mg BIDDIURETIC REESE Administration Gabapentin 600 mg 08/19/20 21:00 08/21/20 09:11 Gabapentin 300 Mg Capsule PO 600 mg 0900,1300,2100 REESE Administration Hydroxyurea 500 mg 08/16/20 15:00 08/20/20 13:30 Hydroxyurea 500 Mg Capsule PO 500 mg 1400 REESE Administration Latanoprost 1 drops 08/15/20 21:00 08/20/20 20:19 Latanoprost 0.005% Ophth Drops EACHEYE 1 drops QPM REESE Administration Losartan Potassium 25 mg 08/18/20 21:00 08/20/20 20:21 Losartan 50 Mg Tablet PO 25 mg QPM REESE Administration Metoclopramide HCl 5 mg 08/14/20 20:51 08/15/20 00:46 Metoclopramide 10 Mg/2 Ml Vial IVP 5 mg Q6HR PRN Administration Nausea / Vomiting Metoprolol Succinate 50 mg 08/17/20 09:00 08/21/20 09:12 Metoprolol Succinate 25 Mg Tablet PO 50 mg DAILY REESE Administration Non-Formulary Medication 50 mg 08/14/20 22:35 08/20/20 20:22 Nitrofurantoin Macrocrystal [Macrodantin] PO 50 mg QPM REESE Administration Combingan 0.2-0.5% 1 each 08/16/20 09:00 08/21/20 09:12 Eye Drops EACHEYE 1 each DAILY REESE Administration Polyethylene Glycol 17 gm 08/15/20 09:00 08/21/20 09:15 Polyethylene Glycol 3350 17 Gm Packet PO Not Given DAILY REESE Sodium Chloride 10 ml 08/15/20 01:00 08/20/20 18:26 Sodium Chloride Flush 0.9% 10 Ml Syringe IVP 10 ml 0100,0900,1700 REESE Administration Sodium Chloride 10 ml 08/14/20 18:29 08/20/20 06:30 Sodium Chloride Flush 0.9% 10 Ml Syringe IVP 10 ml PRN PRN Administration NEEDED PER PROVIDER ORDERS Spironolactone 25 mg 08/17/20 09:00 08/21/20 09:11 Spironolactone 25 Mg Tablet PO 25 mg DAILY REESE Administration - Lab Result Fish Bone Diagrams: 08/22/20 06:10 08/22/20 06:10 - Additional Planning My Orders: My Active Orders 08/20/20 14:00 Furosemide [Lasix] 20 mg PO BIDDIURETIC 08/21/20 11:31 BMP - BASIC METABOLIC PANEL [CHEM] Routine CBC - COMP BLD CT W/AUTO DIFF [HEME] Routine 08/21/20 11:32 BNP - B-NATRIURETIC PEPTIDE [IAI] Routine 08/22/20 05:00 BMP - BASIC METABOLIC PANEL [CHEM] DAILYLAB BNP - B-NATRIURETIC PEPTIDE [IAI] DAILYLAB CBC - COMP BLD CT W/AUTO DIFF [HEME] DAILYLAB 08/23/20 05:00 BMP - BASIC METABOLIC PANEL [CHEM] DAILYLAB BNP - B-NATRIURETIC PEPTIDE [IAI] DAILYLAB CBC - COMP BLD CT W/AUTO DIFF [HEME] DAILYLAB 08/24/20 05:00 BMP - BASIC METABOLIC PANEL [CHEM] DAILYLAB BNP - B-NATRIURETIC PEPTIDE [IAI] DAILYLAB CBC - COMP BLD CT W/AUTO DIFF [HEME] DAILYLAB 08/25/20 05:00 BMP - BASIC METABOLIC PANEL [CHEM] DAILYLAB CBC - COMP BLD CT W/AUTO DIFF [HEME] DAILYLAB Subjective - Subjective Patient Reports: Other (Patient still appeared mildly dyspneic but subjectively not hypoxic. She denied chest pain, abdominal pain, fever or chills.) Objective Vital Signs: Vital Signs - 24 hr 08/20/20 08/20/20 08/20/20 12:58 15:52 21:00 Temperature 36.4 C L 36.2 C L 36.3 C L Heart Rate [ 109 H 65 Brachial] Heart Rate [ 125 H Monitoring electrodes] Respiratory 18 18 18 Rate Blood Pressure 102/56 L 104/73 113/80 [Right Brachial artery] O2 Saturation 93 92 93 08/21/20 08/21/20 00:13 07:39 Temperature 36.8 C 36.3 C L Heart Rate [ Brachial] Heart Rate [ 55 L 112 H Monitoring electrodes] Respiratory 18 Rate Blood Pressure 99/80 139/86 H [Right Brachial artery] O2 Saturation 97 93 Oxygen O2 Source Room air I&O (Last 24 Hrs): Intake and Output Totals x24h 08/19/20 08/20/20 08/21/20 23:59 23:59 23:59 Intake Total 1165 525 50 Output Total 1650 7875 250 Balance -485 -2000 -200 Comments/Notes: General: Alert, Oriented x3, Mild distress HEENT: PERRLA, EOMI Neck: No JVD Neuro: Alert, Oriented Times 3 Cardiovascular: Other (Irregularly irregular) Respiratory: Other (Mild crackles. Mild dyspnea.) Abdomen: Normal bowel sounds, Soft, No tenderness Extremities: No cyanosis, Other (2+ edema. This is an improvement from previous days.) Skin: No rashes - Results Results: Laboratory Results WBC 6.5 x10^3/uL (4.8-10.8) 08/19/20 06:10 RBC 3.52 10^6/uL (4.20-5.40) L 08/19/20 06:10 Hgb 13.8 g/dL (12.0-16.0) 08/19/20 06:10 Hct 41.2 % (37.0-47.0) 08/19/20 06:10 MCV 117.0 fL (81.0-99.0) H 08/19/20 06:10 MCH 39.2 pg (27.0-31.0) H 08/19/20 06:10 MCHC 33.5 g/dL (32.0-36.0) 08/19/20 06:10 RDW 15.2 % (12.0-15.0) H 08/19/20 06:10 Plt Count 236 10^3/uL (130-450) 08/19/20 06:10 MPV 8.6 fL (7.9-10.8) 08/19/20 06:10 Neut # (Auto) 4.0 10^3/uL (1.5-6.6) 08/19/20 06:10 Lymph # (Auto) 1.7 10^3/uL (1.5-3.5) 08/19/20 06:10 [place] # (Auto) 0.6 10^3/uL (0.0-1.0) 08/19/20 06:10 Eos # (Auto) 0.2 10^3/uL (0.0-0.7) 08/19/20 06:10 Baso # (Auto) 0.0 10^3/uL (0.0-0.1) 08/19/20 06:10 Absolute Nucleated RBC 0.00 x10^3/uL 08/19/20 06:10 Nucleated RBC % 0.0 /100WBC 08/19/20 06:10 Manual Slide Review Indicated 08/19/20 06:10 Platelet Estimate NORMAL (130-450,000) (NORMAL) 08/19/20 06:10 Platelet Morphology NORMAL APPEARANCE (NORMAL) 08/14/20 16:15 RBC Morph Micro Appear 3+ MACROCYTOSIS (NORMAL) 1+ HYPOCHROMASIA (NORMAL) 08/19/20 06:10 RBC Morph Micro Appear 3+ MACROCYTOSIS (NORMAL) 1+ HYPOCHROMASIA (NORMAL) 08/19/20 06:10 VBG pH 7.311 (7.31-7.41) 08/15/20 04:43 Ionized Calcium 1.06 mmol/L (1.15-1.33) L 08/15/20 04:43 Sodium 135 mmol/L (135-145) 08/20/20 05:54 Potassium 4.6 mmol/L (3.5-5.0) 08/20/20 05:54 Chloride 97 mmol/L (101-111) L 08/20/20 05:54 Carbon Dioxide 32 mmol/L (21-32) 08/20/20 05:54 Anion Gap 6.0 (6-13) 08/20/20 05:54 BUN 12 mg/dL (6-20) 08/20/20 05:54 Creatinine 0.6 mg/dL (0.4-1.0) 08/20/20 05:54 Estimated GFR (MDRD) 95 (>89) 08/20/20 05:54 Glucose 98 mg/dL (70-100) 08/20/20 05:54 Estimat Average Glucose 88 mg/dL (70-100) 08/14/20 16:15 Hemoglobin A1c % 4.7 % (4.27-6.07) 08/14/20 16:15 Calcium 8.7 mg/dL (8.5-10.3) 08/20/20 05:54 Ionized Calcium YES 08/15/20 04:43 Phosphorus 4.7 mg/dL (2.5-4.6) H 08/14/20 16:15 Magnesium 1.9 mg/dL (1.7-2.8) 08/20/20 05:54 Total Bilirubin 0.8 mg/dL (0.2-1.0) 08/15/20 04:43 AST 29 IU/L (10-42) 08/15/20 04:43 ALT 52 IU/L (10-60) 08/15/20 04:43 Alkaline Phosphatase 93 IU/L (42-121) 08/15/20 04:43 Troponin I High Sens 18.2 ng/L (2.3-14.8) H* 08/20/20 12:19 B-Natriuretic Peptide 814 pg/mL (5-100) H 08/20/20 05:54 Total Protein 5.9 g/dL (6.7-8.2) L 08/15/20 04:43 Albumin 3.2 g/dL (3.2-5.5) 08/15/20 04:43 Globulin 2.7 g/dL (2.1-4.2) 08/15/20 04:43 Albumin/Globulin Ratio 1.2 (1.0-2.2) 08/15/20 04:43 Lipase 22 U/L (22-51) 08/14/20 16:15 TSH 2.03 uIU/mL (0.34-5.60) 08/14/20 16:15 Free T4 5.47 ng/dL (0.58-1.64) H 08/15/20 04:43 Free T3 pg/mL 8.70 pg/mL (2.5-3.9) H 08/15/20 04:43 PTH Intact 56 pg/mL (12-88) 08/15/20 04:43 Urine Color YELLOW 08/14/20 20:50 Urine Clarity CLEAR (CLEAR) 08/14/20 20:50 Urine pH 5.5 PH (5.0-7.5) 08/14/20 20:50 Ur Specific [place] 1.025 (1.002-1.030) 08/14/20 20:50 Urine Protein NEGATIVE mg/dL (NEGATIVE) 08/14/20 20:50 Urine Glucose (UA) NEGATIVE mg/dL (NEGATIVE) 08/14/20 20:50 Urine Ketones TRACE mg/dL (NEGATIVE) 08/14/20 20:50 Urine Occult Blood NEGATIVE (NEGATIVE) 08/14/20 20:50 Urine Nitrite NEGATIVE (NEGATIVE) 08/14/20 20:50 Urine Bilirubin NEGATIVE (NEGATIVE) 08/14/20 20:50 Urine Urobilinogen 0.2 (NORMAL) E.U./dL (NORMAL) 08/14/20 20:50 Ur Leukocyte Esterase NEGATIVE (NEGATIVE) 08/14/20 20:50 Ur Microscopic Review NOT INDICATED 08/14/20 20:50 Urine Culture Comments NOT INDICATED 08/14/20 20:50 Urine Sodium < 12.0 mmol/L 08/14/20 20:50 Nasal Adenovirus (PCR) NOT DETECTED 08/14/20 19:08 Nasal B. parapertussis DNA (PCR) NOT DETECTED 08/14/20 19:08 Nasal Coronavir 229E PCR NOT DETECTED 08/14/20 19:08 Nasal Coronavir HKU1 PCR NOT DETECTED 08/14/20 19:08 Nasal Coronavir NL63 PCR NOT DETECTED 08/14/20 19:08 Nasal Coronavir OC43 PCR NOT DETECTED 08/14/20 19:08 Nasal Enterovir/Rhinovir PCR NOT DETECTED 08/14/20 19:08 Nasal Influenza B PCR NOT DETECTED 08/14/20 19:08 Nasal Influenza A PCR NOT DETECTED 08/14/20 19:08 Nasal Parainfluen 1 PCR NOT DETECTED 08/14/20 19:08 Nasal Parainfluen 2 PCR NOT DETECTED 08/14/20 19:08 Nasal Parainfluen 3 PCR NOT DETECTED 08/14/20 19:08 Nasal Parainfluen 4 PCR NOT DETECTED 08/14/20 19:08 Nasal RSV (PCR) NOT DETECTED 08/14/20 19:08 Nasal Screen MRSA (PCR) NEGATIVE (NEGATIVE) 08/14/20 20:30 Nasal B.pertussis DNA PCR NOT DETECTED 08/14/20 19:08 Nasal C.pneumoniae (PCR) NOT DETECTED 08/14/20 19:08 Cipriano Human Metapneumo PCR NOT DETECTED 08/14/20 19:08 Nasal M.pneumoniae (PCR) NOT DETECTED 08/14/20 19:08 Nasal SARS-CoV-2 (PCR) NOT DETECTED 08/14/20 19:08 ABX Reporting Has patient been on IV antibiotics over the past 48 hours?: No
[2020-08-21] MEDS: SODIUM CHLORIDE FLUSH 0.9% 10 ML SYRINGE IVP SCH ×2 (11:42→16:37)
[2020-08-21 12:22] LABS: BASOPHILS % (AUTO) 0.6 %; EOSINOPHILS # (AUTO) 0.2 10^3/uL (0.0-0.7); EOSINOPHILS % (AUTO) 2.8 %; HGB - HEMOGLOBIN 14.6 g/dL (12.0-16.0); LYMPHOCYTES # (AUTO) 1.5 10^3/uL (1.5-3.5); LYMPHOCYTES % (AUTO) 20.2 %; MEAN CORPUSCULAR HEMOGLOBIN 39.9 pg (27.0-31.0); MEAN CORPUSCULAR HGB CONC 33.8 g/dL (32.0-36.0); MEAN PLATELET VOLUME 8.8 fL (7.9-10.8); MONOCYTES # (AUTO) 0.6 10^3/uL (0.0-1.0); MONOCYTES % (AUTO) 8.6 %; NEUTROPHILS # (AUTO) 4.8 10^3/uL (1.5-6.6); NEUTROPHILS % (AUTO) 67.5 %; PLT - PLATELET COUNT 259 10^3/uL (130-450); RED BLOOD COUNT 3.66 10^6/uL (4.20-5.40); RED CELL DISTRIBUTION WIDTH 14.6 % (12.0-15.0); WHITE BLOOD COUNT 7.2 x10^3/uL (4.8-10.8)
[2020-08-21 12:31] LABS: CALCIUM 8.8 mg/dL (8.5-10.3); CREATININE 0.6 mg/dL (0.4-1.0)
[2020-08-21] MEDS: HYDROXYUREA 500 MG CAPSULE PO SCH (13:39)
[2020-08-21] MEDS ORDERED: DIGOXIN 500 MCG/2 ML AMP IVP STA (19:57)
[2020-08-21] MEDS: ATORVASTATIN 10 MG TABLET PO SCH (20:53)
[2020-08-21] MEDS: LOSARTAN 50 MG TABLET PO SCH (20:54)
[2020-08-21] MEDS: BACLOFEN 10 MG TABLET PO SCH (20:55)
[2020-08-21] MEDS: NITROFURANTOIN MACROCRYSTAL 50 MG PO SCH (20:57)
[2020-08-21] MEDS: diphenhydrAMINE 25 MG CAPSULE PO PRN (21:07)
[2020-08-21] MEDS: LATANOPROST 0.005% OPHTH DROPS EACHEYE SCH (21:09)
[2020-08-22] MEDS: SODIUM CHLORIDE FLUSH 0.9% 10 ML SYRINGE IVP SCH ×3 (02:40→16:14)
[2020-08-22 06:19] LABS: BASOPHILS # (AUTO) 0.1 10^3/uL (0.0-0.1); BASOPHILS % (AUTO) 0.6 %; EOSINOPHILS # (AUTO) 0.2 10^3/uL (0.0-0.7); EOSINOPHILS % (AUTO) 2.9 %; HGB - HEMOGLOBIN 14.2 g/dL (12.0-16.0); LYMPHOCYTES # (AUTO) 1.9 10^3/uL (1.5-3.5); MEAN CORPUSCULAR HGB CONC 34.1 g/dL (32.0-36.0); MEAN CORPUSCULAR VOLUME 117.5 fL (81.0-99.0); MEAN PLATELET VOLUME 8.8 fL (7.9-10.8); MONOCYTES # (AUTO) 0.6 10^3/uL (0.0-1.0); MONOCYTES % (AUTO) 7.7 %; NEUTROPHILS # (AUTO) 5.5 10^3/uL (1.5-6.6); NEUTROPHILS % (AUTO) 65.7 %; PLT - PLATELET COUNT 221 10^3/uL (130-450); RED BLOOD COUNT 3.55 10^6/uL (4.20-5.40); RED CELL DISTRIBUTION WIDTH 14.7 % (12.0-15.0); WHITE BLOOD COUNT 8.3 x10^3/uL (4.8-10.8)
[2020-08-22 06:28] LABS: CALCIUM 8.8 mg/dL (8.5-10.3); CREATININE 0.7 mg/dL (0.4-1.0)
[2020-08-22 08:53] LABS: FOLATE 12.09 ng/mL (5.90 - >24.8)
[2020-08-22] MEDS: CALCIUM CARBONATE CHEW 500 MG TABLET PO SCH ×3 (09:18→20:24)
[2020-08-22] MEDS: GABAPENTIN 300 MG CAPSULE PO SCH ×3 (09:18→20:15)
[2020-08-22] MEDS: FUROSEMIDE 20 MG TABLET PO SCH (09:19)
[2020-08-22] MEDS: DIGOXIN 125 MCG TABLET PO SCH (09:19)
[2020-08-22] MEDS: APIXABAN 5 MG TABLET PO SCH ×2 (09:19→20:14)
[2020-08-22] MEDS: CHOLECALCIFEROL 5,000 UNIT CAPSULE PO SCH (09:19)
[2020-08-22] MEDS: polyethylene glycoL 3350 17 GM PACKET PO SCH (09:20)
[2020-08-22] MEDS: SPIRONOLACTONE 25 MG TABLET PO SCH (09:23)
[2020-08-22] MEDS: METOPROLOL SUCCINATE 25 MG TABLET PO SCH (12:18)
--- NOTE | 2020-08-22 13:44 | CONSULTATION NOTE ---
Palliative Care Consultation - Referral Referring Provider: Dr. Nobles Time of Visit: [id number]; [id number] Referral setting: Hospitalized patient Referral Reason: MS/CHF/Goals of Care - Information Sources Records reviewed: Previous records reviewed History/Review of Systems obtained from: Patient, Family (daughter Radha present) Exam limitations: No limitations - History of Present Illness Brief History of Present Illness: This is a meghan 84-year-old woman who was admitted to [facility] on 08/14/2020, as a result of poor appetite, nausea, and worsening shortness of breath. She had called her PCP, and on presentation to the emergency room, was found to be tachycardic with heart rate up to 130s, showing atrial fib with RVR. She was found to have acute on chronic systolic heart failure, her echo did show a ejection fraction of 30%, this is a new diagnosis for her. She has been titrated on cardiac medications, for stabilization, she does have a pleural effusion due to CHF, and her BNP has been decreasing. Patient at baseline does have MS with which she has had for 28 years, she has been wheelchair bound 15 to 20 years, and but has needed increasing assistance the last couple of years. They had been living in [place], and would come up to [facility] during the christiansen, but with decline in functional status, and advanced age, Came back to [facility] has 3 out of 4 kids live up here. They do do rotating schedules every 3 weeks to provided assistance. And follow- up with daughter and, she has been noting decreased activity tolerance, increased shortness of breath, and just noted frail OT with each of every 3 weeks round that she was doing. Patient had previously been independent in her transfers for toileting, now has needed more assistance. Today she presents with maximum assist, needing Remedios lift for bed mobility. This is a source of anxiety is stress for her, how to manage toileting issues. She did have a Singletary catheter on admit, they have now moved to peer to peer work. She does though describe history of mild retentive symptoms, which would be congruent with progressive MS. [place], they does have a cabin. Though they very much enjoy their time here, in the end decided to set up transition in [place] where they do have a condo. They will be receiving home health services, as well as hiring help/paid caregiving, and follow-up with their primary care provider who is over there as well as referral to cardiology. It appears patient has been having slow functional decline, now presents with new diagnosis of acute on chronic heart failure, and with increasing care needs. Palliative care meeting with patient and daughter to define goals of care and provide anticipatory guidance. Medical/Surgical History - Past Medical History Cardiovascular: reports: Congestive heart failure, High cholesterol, Atrial fibrillation Respiratory: reports: Shortness of breath Neuro: Peripheral neuropathy, Multiple sclerosis Neuro: reports: Multiple sclerosis Endocrine/Autoimmune: reports: HyPOthyroidism GI: reports: None INTEGRATION DIRECTOR: reports: Breast cancer : reports: Other (mild retention) Musculoskeletal: reports: Osteoporosis, Fatigue, Scoliosis MRSA Hx?: No - Past Surgical History /INTEGRATION DIRECTOR: reports: Mastectomy - Substance History Use: Uses substance without health or social issues: NONE Social History - Living Situation Living arrangement: At home Living Situation: With spouse/s.o. 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 They do have 4 children, with relocated up here. This is what influence their move up from [place] in a more permanent way this last year.They are establishing medical care, with PCP over there, unfortunately torie Green, would have a difficult time accommodating her current level of care. She is established with [facility], and familiar with father anibal, she was able to receive communion yesterday. Her kelvin, Catholicism, is very important to her. She finds this very supportive. Patient has been for 57 years, currently patient's who is quite elderly at 86, had been the sole caregiver up to when they moved up here. He is significantly hard of hearing, which makes communication particularly in the context of Covid and masks quite difficult. Family History - Family History Family History: Mother: (sister of MS), CVA/TIA, Father: , Sister: Medications/Allergies - Medications Active Medication List: Active Medications Acetaminophen (Acetaminophen 325 Mg Tablet) 650 mg PO Q4HR PRN PRN Reason: Pain 1 to 4 Apixaban (Apixaban 5 Mg Tablet) 5 mg PO BID [facility] Last Admin: 08/22/20 09:19 Dose: 5 mg Documented by: Atorvastatin Calcium (Atorvastatin 10 Mg Tablet) 5 mg PO QPM [facility] Last Admin: 08/21/20 20:53 Dose: 5 mg Documented by: Baclofen (Baclofen 10 Mg Tablet) 10 - 20 mg PO QPM [facility] Last Admin: 08/21/20 20:55 Dose: 10 mg Documented by: Calcium Carbonate/Glycine (Calcium Carbonate Chew 500 Mg Tablet) 500 mg PO 090 0,1300,2100 [facility] Last Admin: 08/22/20 13:05 Dose: 500 mg Documented by: Cholecalciferol (Cholecalciferol 5,000 Unit Capsule) 5,000 unit PO DAILY [facility] Last Admin: 08/22/20 09:19 Dose: 5,000 unit Documented by: Digoxin (Digoxin 125 Mcg Tablet) 125 mcg PO DAILY [facility] Last Admin: 08/22/20 09:19 Dose: 125 mcg Documented by: Diphenhydramine HCl (Diphenhydramine 25 Mg Capsule) 25 mg PO QPM PRN PRN Reason: Insomnia Last Admin: 08/21/20 21:07 Dose: 25 mg Documented by: Furosemide (Furosemide 20 Mg Tablet) 20 mg PO DAILY [facility] Last Admin: 08/22/20 09:19 Dose: 20 mg Documented by: Gabapentin (Gabapentin 300 Mg Capsule) 600 mg PO 0900,1300,2100 [facility] Last Admin: 08/22/20 13:05 Dose: 600 mg Documented by: Hydroxyurea (Hydroxyurea 500 Mg Capsule) 500 mg PO 1400 [facility] Last Admin: 08/21/20 13:39 Dose: 500 mg Documented by: Latanoprost (Latanoprost 0.005% Ophth Drops) 1 drops EACHEYE QPM [facility] Last Admin: 08/21/20 21:09 Dose: 1 drops Documented by: Losartan Potassium (Losartan 50 Mg Tablet) 25 mg PO QPM [facility] Last Admin: 08/21/20 20:54 Dose: 25 mg Documented by: Metoclopramide HCl (Metoclopramide 10 Mg/2 Ml Vial) 5 mg IVP Q6HR PRN PRN Reason: Nausea / Vomiting Last Admin: 08/15/20 00:46 Dose: 5 mg Documented by: Metoprolol Succinate (Metoprolol Succinate 25 Mg Tablet) 50 mg PO 1200 [facility] Last Admin: 08/22/20 12:18 Dose: 50 mg Documented by: Non-Formulary Medication (Nitrofurantoin Macrocrystal [Macrodantin]) 50 mg PO QPM [facility] Last Admin: 08/21/20 20:57 Dose: 50 mg Documented by: Ondansetron HCl (Ondansetron 4 Mg/2 Ml Vial) 4 mg IVP Q6HR PRN PRN Reason: Nausea / Vomiting Oxycodone HCl (Oxycodone 5 Mg Tablet) 5 mg PO Q6HR PRN PRN Reason: Pain 5 to 7 Combingan 0.2-0.5% (Eye Drops) 1 each EACHEYE DAILY [facility] Last Admin: 08/22/20 09:20 Dose: 1 each Documented by: Polyethylene Glycol (Polyethylene Glycol 3350 17 Gm Packet) 17 gm PO DAILY [facility] Last Admin: 08/22/20 09:20 Dose: Not Given Documented by: Sodium Chloride (Sodium Chloride Flush 0.9% 10 Ml Syringe) 10 ml IVP 0100,0900,1700 [facility] Last Admin: 08/22/20 09:23 Dose: 10 ml Documented by: Sodium Chloride (Sodium Chloride Flush 0.9% 10 Ml Syringe) 10 ml IVP PRN PRN PRN Reason: NEEDED PER PROVIDER ORDERS Last Admin: 08/20/20 06:30 Dose: 10 ml Documented by: Spironolactone (Spironolactone 25 Mg Tablet) 25 mg PO DAILY [facility] Last Admin: 08/22/20 09:23 Dose: 25 mg Documented by: Aspirin [Aspir 81] 81 mg PO QPM 02/09/14 Atorvastatin Calcium [Lipitor] 5 mg PO QPM 02/09/14 Calcium Carbonate [Calcium] 500 mg PO BID 02/09/14 Cholecalciferol (Vitamin D3) [Vitamin D] 2,000 units PO DAILY 02/09/14 Gabapentin 600 mg PO TID 02/09/14 Baclofen 10 - 20 mg PO QPM 05/11/16 Nitrofurantoin Macrocrystal [Macrodantin] 50 mg PO QPM 05/11/16 Biotin 100 mg PO TID 05/18/20 Hydroxyurea [Hydrea] 500 mg PO QPM 05/18/20 Latanoprost/Pf [Latanoprost 0.005% Eye Drop] 1 drops EACHEYE DAILY 05/18/20 Flavoxate HCl 100 mg PO TID PRN 08/14/20 Zoledronic Acid 4 mg/100 ml [Zometa 4 mg/100 ml] 5 mg IV ONCE 08/14/20 Alpha Lipoic Acid 1,200 mg PO DAILY 08/15/20 Brimonidine Tartrate/Timolol [Combigan 0.2%-0.5% Eye Drops] 1 drops EACHEYE BID 08/15/20 - Allergies Allergies/Adverse Reactions: Allergies Allergy/AdvReac Type Severity Reaction Status Date / Time phenytoin sodium * Allergy Hives Verified 08/14/20 15:54 [From Dilantin] phenytoin sodium extended * Allergy Hives Verified 08/14/20 15:54 [From Dilantin] Sulfa (Sulfonamide Allergy Rash Verified 08/14/20 15:54 Antibiotics) Review of Systems - Constitutional Constitutional: reports: Fatigue, Weakness, Poor appetite. denies: Fever, Chills - Cardiovascular Cardiovascular: reports: Irregular heart rate, Decr. exercise tolerance - Respiratory Respiratory: reports: SOB at rest - Gastrointestinal Gastrointestinal: reports: Poor appetite, Early satiety. denies: Constipation - Genitourinary Genitourinary: reports: Other (singletary cath removed; trying "pure wick"; hx of mild retentive symptoms) - Musculoskeletal Musculoskeletal: reports: Stiffness, Limited range of motion, Muscle weakness (LE), Transfer issues (was pivot transfer; now sit to stand lift; Wheelchair bound with MS for 15-20 years) - Integumentary Integumentary: reports: Dryness - Neurological Neurological: reports: General weakness - Psychiatric Psychiatric: reports: Anxiety - Endocrine Endocrine: reports: Hypothyroidism - All Other Systems All Other Systems: reports: Reviewed and negative Physical Exam - Vital Signs Vital Signs: Vital Signs x48h Temp Pulse Resp BP Pulse Ox 08/22/20 12:29 36.6 C 92 18 127/49 L 94 08/22/20 08:50 36.8 C 102 H 18 131/76 H 95 08/22/20 06:35 36.7 C 82 19 112/68 92 - Physical Exam General Appearance: positive: No acute distress, Alert Eyes Bilateral: positive: Normal inspection ENT: positive: No signs of dehydration Neck: positive: Trachea midline Respiratory: negative: No respiratory distress (breathless with conversation or activity) Abdomen: positive: Soft Skin: positive: Pallor, Dryness Neurologic/Psychiatric: positive: Oriented x3, Mood/affect nml, Weakness Palliative Care - POLST POLST Status: DNR (completed at visit), Selective Treatment Pain: No pain Tiredness/Fatigue: Severe (7-10) Drowsiness/Sedation: Mild (1-3) Nausea: None Anorexia: Moderate (4-6) Dyspnea: Moderate (4-6) Depression: None Anxiety: Mild (1-3) Feelings of wellbeing/Perceived Quality of Life: Fair, Worsening Performance Status: Patient previously had been able to be transferred to the commode and wheelchair. Currently is quite weak, unable to weight-bear, has just trialed Remedios lift. They are making arrangements for this to be in the home setting, along with physical therapy for training.She very much enjoys shower daily, they do have a modified ADA bathroom set up in their condo in [facility]. - Palliative Care Discussion: Patient has lived with her MS, and been wheelchair-bound for 15 to 20 years, when asked how she is coped in the past, she is quite pragmatic and adjusts as needed. She has had multiple losses along the way, but her daughter shares her abdomen radiation for her resiliency and ability to take things in stride. Of note her sister, also had MS, and was bedbound for 15 to 18 years, she did have tube feedings and catheter, she reflects on this as not necessarily how she wants her journey, in the context of quality of life. Her current goals are to return to some level of previous function, particularly around toileting, it has been a bit much, with not only her decline with her MS, but now a new diagnosis of CHF and the implications regarding this, and increasing dependence. We did discuss the POLST, patient does want to be a DN AR/DNI. She very much would like to avoid hospitalization, but at this point in time would weigh benefits and burdens of decisions as they come along for treatment of reversible conditions. We did discuss what is most important to her, certainly her kelvin, spending time with family, and taking a day at a time. We did complete it with selective decisions, allowing for transfer to the hospital. At that point in time weighing benefits and burdens, did discuss thresholds for quality of life, her mother did of a stroke, if she were to be more dependent, or have a significant change in condition, she would not want her suffering prolonged. Discussed the continuum of care, palliative care versus hospice care. Looking at hospice as a support for end-of-life, she does at this point in time think she would like to be at home for end-of-life. We discussed this would be at the point where she was in that last window of 6 months. Results - Lab Results Lab results reviewed: Yes Fish Bones: 08/22/20 06:10 08/22/20 06:10 Lab and Imaging Results: Lab Results x24hrs 08/22/20 08/22/20 08/22/20 Range/Units 06:10 06:10 06:10 WBC (4.8-10.8) x10^3/uL RBC (4.20-5.40) 10^6/uL Hgb (12.0-16.0) g/dL Hct (37.0-47.0) % MCV (81.0-99.0) fL MCH (27.0-31.0) pg MCHC (32.0-36.0) g/dL RDW (12.0-15.0) % Plt Count (130-450) 10^3/uL MPV (7.9-10.8) fL Neut # (Auto) (1.5-6.6) 10^3/uL Lymph # (Auto) (1.5-3.5) 10^3/uL Dimmit # (Auto) (0.0-1.0) 10^3/uL Eos # (Auto) (0.0-0.7) 10^3/uL Baso # (Auto) (0.0-0.1) 10^3/uL Absolute Nucleated RBC x10^3/uL Nucleated RBC % /100WBC Sodium 138 (135-145) mmol/L Potassium 3.9 (3.5-5.0) mmol/L Chloride 93 L (101-111) mmol/L Carbon Dioxide 34 H (21-32) mmol/L Anion Gap 11.0 (6-13) BUN 15 (6-20) mg/dL Creatinine 0.7 (0.4-1.0) mg/dL Estimated GFR (MDRD) 80 L (>89) Glucose 93 (70-100) mg/dL Calcium 8.8 (8.5-10.3) mg/dL B-Natriuretic Peptide 749 H (5-100) pg/mL Vitamin B12 629 (180-914) pg/mL Folate 12.09 (5.90 - >24.8) ng/mL 08/22/20 Range/Units 06:10 WBC 8.3 (4.8-10.8) x10^3/uL RBC 3.55 L (4.20-5.40) 10^6/uL Hgb 14.2 (12.0-16.0) g/dL Hct 41.7 (37.0-47.0) % MCV 117.5 H (81.0-99.0) fL MCH 40.0 H (27.0-31.0) pg MCHC 34.1 (32.0-36.0) g/dL RDW 14.7 (12.0-15.0) % Plt Count 221 (130-450) 10^3/uL MPV 8.8 (7.9-10.8) fL Neut # (Auto) 5.5 (1.5-6.6) 10^3/uL Lymph # (Auto) 1.9 (1.5-3.5) 10^3/uL Dimmit # (Auto) 0.6 (0.0-1.0) 10^3/uL Eos # (Auto) 0.2 (0.0-0.7) 10^3/uL Baso # (Auto) 0.1 (0.0-0.1) 10^3/uL Absolute Nucleated RBC 0.00 x10^3/uL Nucleated RBC % 0.0 /100WBC Sodium (135-145) mmol/L Potassium (3.5-5.0) mmol/L Chloride (101-111) mmol/L Carbon Dioxide (21-32) mmol/L Anion Gap (6-13) BUN (6-20) mg/dL Creatinine (0.4-1.0) mg/dL Estimated GFR (MDRD) (>89) Glucose (70-100) mg/dL Calcium (8.5-10.3) mg/dL B-Natriuretic Peptide (5-100) pg/mL Vitamin B12 (180-914) pg/mL Folate (5.90 - >24.8) ng/mL Impression and Recommendations - Palliative Care Impression: This is an 84-year-old woman with longstanding MS, recent functional decline, and now presents acutely with acute on chronic systolic heart failure and ejection fraction of 30%. She will be returning to her home in [place], her goals are to improve her underlying functional status, spending time with family, and focusing on comfort. Palliative care providing support today for goals of care conversation, and anticipatory guidance. Recommendations/Counseling Done: 1. Acute on chronic systolic heart failure. Patient with known pleural effusion, new onset, in the context of atrial fib. Patient is feeling somewhat overwhelmed, particularly with the initiation of multiple new medications. She also dislikes the sodium restriction diet, did discuss in the context of next steps, will be monitored and supported by home health nursing, as well as pending referral to cardiology. Counseling provided though regarding patient's current limitations, with breathlessness even with conversation, and ejection fraction of 30%, certainly presents with concern adding to her underlying frailty. 2. MS. Patient has been having slow functional decline, manifesting in worsening, or more difficult transfers. Now patient presents acutely with needing full Remedios lift. Patient expresses appropriately concerns regarding managing toileting issues, did have Singletary catheter which decreased stress significantly. Patient has had intermittent retentive symptoms, did discuss is part of MS progression, urinary retention can be problematic as well. Will trial toileting, as well as depends, but did discuss benefits and burdens of long-term Singletary catheter use. Her sister did have MS, and did have catheter also. Certainly comes with risk of infection, but may ease patient's stress and be a quality of life issue. 3. Anxiety. Patient with appropriate response to multiple changes, additional complex medical problems, and increasing care needs. Now will be receiving home health services as well as caregiving. Counseling support given for changes and adaptations needed given her current healthcare status. 4. Advanced care planning. Patient does have a DPOA, as well as a directive. Counseling provided regarding the role of the POLST, particularly with caregivers providing support in the home environment. Patient is quite clear she wants to be a DN AR/DNI, does understand the goals are to hope for the best in improving her functional status, but also counseling provided as far as anticipatory guidance about the continuum of care, home health, long term care, palliative care versus hospice care. Discussion and clarification regarding quality of life issues, thresholds regarding decision making around end-of-life, as well as completing the POLST. Instructions on posting on refrigerator, unfortunately unable to find a home palliative service. There is an outpatient service at [facility] in [place]. Time Spent: 120 minutes with greater than 50% of this done in counseling regarding goals of care, continuum of care, anticipatory guidance, and coordination of care with hospitalist team. [id number]. Is a taxing considerable effort for the patient leave the home secondary to fatigue, wheelchair-bound status, and acute hospitalization with muscle weakness, functional decline. Patient benefit from home health nursing for teaching and monitor regarding new diagnosis of CHF and new medications, monitoring of bladder issues, possible Singletary cath needed, as well as teaching for care of patient with caregivers. Physical therapy for strengthening program , transfer training, safety, and Remedios lift training. OT for ADLs, bathing, and energy conservation. Home health aide for personal care, skin care, and nail care.
[2020-08-22] MEDS: HYDROXYUREA 500 MG CAPSULE PO SCH (14:19)
[2020-08-22] MEDS: LOSARTAN 50 MG TABLET PO SCH (20:18)
[2020-08-22] MEDS: BACLOFEN 10 MG TABLET PO SCH (20:19)
[2020-08-22] MEDS: ATORVASTATIN 10 MG TABLET PO SCH (20:20)
[2020-08-22] MEDS: NITROFURANTOIN MACROCRYSTAL 50 MG PO SCH (20:21)
[2020-08-22] MEDS: LATANOPROST 0.005% OPHTH DROPS EACHEYE SCH (20:24)
--- NOTE | 2020-08-22 20:54 | PROVIDER PROGRESS NOTE ---
Assessment/Plan - Problem List (1) Acute on chronic systolic heart failure Assessment/Plan: Final adjustments were made to the patient's heart failure medications yesterday. Her Lasix was decreased to 20 mg p.o. daily She will also go home on spironolactone 25 mg p.o. daily The diuretics had to be given in the morning. She is also on losartan 25 mg p.o. to be given in the evening He received a dose of digoxin 125 mcg IV once last evening. She will also be discharged home on digoxin 125 mg p.o. daily Metoprolol succinate 50 mg p.o. daily. The patient has been advised to maintain an 1800 mils or less of total fluid per day The patient is expected to maintain less than or equal to 2 g sodium consumption in a 24-hour. She has been advised to watch insidious sources of sodium like canned foods. The patient and her daughter expressed understanding and are agreeable to comply with the recommendations Patient is being discharged home with home health: PT, OT, home health aide and nursing. Her family is very involved in her care and plan to also take part in the caregiving. They would take her home to [place]. They are working on obtaining a hospital bed and a emeka lift. Patient is suspected to follow-up with her primary care physician and and cardiology. The etiology for her heart failure has not been established and would need further work-up. The goal during this hospital stay has been to treat the heart failure to optimization for discharge. This has been achieved with reasonable success in the past 7 days At the telemedicine visit the patient had last Saturday in her hospital room with her primary care physician, the doctor agreed to schedule the cardiology follow-up. (2) Atrial flutter with rapid ventricular response Assessment/Plan: This was a new onset as of this hospital visit. Patient is on metoprolol succinate 50 mg p.o. daily Patient is on Eliquis 5 mg p.o. twice daily Patient is on digoxin 125 mg p.o. daily Since heart rate has been successfully controlled with the above medications. (3) Elevated serum free T4 level Assessment/Plan: Patient is to follow-up with [facility] in the outpatient setting (4) Pleural effusion due to CHF (congestive heart failure) Assessment/Plan: Improved. Treatment would be the same for her heart failure as documented above. (5) V tach Assessment/Plan: This was nonsustained. Infrequent. It was thought to be due to electrolyte shifts with diuresing. Work-up has been largely unremarkable. (6) Chest tightness Assessment/Plan: Musculoskeletal. Ointment with as needed medications for pain and muscle relaxants. - Current Meds Current Meds: Current Medications Generic Name Dose Route Start Last Admin Trade Name Freq PRN Reason Stop Dose Admin Apixaban 5 mg 08/15/20 21:00 08/22/20 20:14 Apixaban 5 Mg Tablet PO 5 mg BID REESE Administration Atorvastatin Calcium 5 mg 08/14/20 23:00 08/22/20 20:20 Atorvastatin 10 Mg Tablet PO 5 mg QPM REESE Administration Baclofen 10 - 20 mg 08/14/20 23:00 08/22/20 20:19 Baclofen 10 Mg Tablet PO 10 mg QPM REESE Administration Calcium Carbonate/Glycine 500 mg 08/19/20 21:00 08/22/20 20:24 Calcium Carbonate Chew 500 Mg Tablet PO 500 mg 0900,1300,2100 REESE Administration Cholecalciferol 5,000 unit 08/16/20 09:00 08/22/20 09:19 Cholecalciferol 5,000 Unit Capsule PO 5,000 unit DAILY REESE Administration Digoxin 125 mcg 08/22/20 09:00 08/22/20 09:19 Digoxin 125 Mcg Tablet PO 125 mcg DAILY REESE Administration Diphenhydramine HCl 25 mg 08/17/20 21:13 08/21/20 21:07 Diphenhydramine 25 Mg Capsule PO 25 mg QPM PRN Administration Insomnia Furosemide 20 mg 08/22/20 09:00 08/22/20 09:19 Furosemide 20 Mg Tablet PO 20 mg DAILY REESE Administration Gabapentin 600 mg 08/19/20 21:00 08/22/20 20:15 Gabapentin 300 Mg Capsule PO 600 mg 0900,1300,2100 REESE Administration Hydroxyurea 500 mg 08/16/20 15:00 08/22/20 14:19 Hydroxyurea 500 Mg Capsule PO 500 mg 1400 REESE Administration Latanoprost 1 drops 08/15/20 21:00 08/22/20 20:24 Latanoprost 0.005% Ophth Drops EACHEYE 1 drops QPM REESE Administration Losartan Potassium 25 mg 08/18/20 21:00 08/22/20 20:18 Losartan 50 Mg Tablet PO 25 mg QPM REESE Administration Metoclopramide HCl 5 mg 08/14/20 20:51 08/15/20 00:46 Metoclopramide 10 Mg/2 Ml Vial IVP 5 mg Q6HR PRN Administration Nausea / Vomiting Metoprolol Succinate 50 mg 08/22/20 12:00 08/22/20 12:18 Metoprolol Succinate 25 Mg Tablet PO 50 mg 1200 REESE Administration Non-Formulary Medication 50 mg 08/14/20 22:35 08/22/20 20:21 Nitrofurantoin Macrocrystal [Macrodantin] PO 50 mg QPM REESE Administration Com[place]an 0.2-0.5% 1 each 08/16/20 09:00 08/22/20 09:20 Eye Drops EACHEYE 1 each DAILY REESE Administration Polyethylene Glycol 17 gm 08/15/20 09:00 08/22/20 09:20 Polyethylene Glycol 3350 17 Gm Packet PO Not Given DAILY REESE Sodium Chloride 10 ml 08/15/20 01:00 08/22/20 16:14 Sodium Chloride Flush 0.9% 10 Ml Syringe IVP 10 ml 0100,0900,1700 REESE Administration Sodium Chloride 10 ml 08/14/20 18:29 08/20/20 06:30 Sodium Chloride Flush 0.9% 10 Ml Syringe IVP 10 ml PRN PRN Administration NEEDED PER PROVIDER ORDERS Spironolactone 25 mg 08/17/20 09:00 08/22/20 09:23 Spironolactone 25 Mg Tablet PO 25 mg DAILY REESE Administration - Lab Result Fish Bone Diagrams: 08/22/20 06:10 08/22/20 06:10 - Additional Planning My Orders: My Active Orders 08/22/20 08:00 Palliative Care Consult [CONS] Routine 08/23/20 05:00 BMP - BASIC METABOLIC PANEL [CHEM] DAILYLAB BNP - B-NATRIURETIC PEPTIDE [IAI] DAILYLAB CBC - COMP BLD CT W/AUTO DIFF [HEME] DAILYLAB 08/23/20 06:00 DIGOXIN [CHEM] Routine 08/24/20 05:00 BMP - BASIC METABOLIC PANEL [CHEM] DAILYLAB BNP - B-NATRIURETIC PEPTIDE [IAI] DAILYLAB CBC - COMP BLD CT W/AUTO DIFF [HEME] DAILYLAB 08/25/20 05:00 BMP - BASIC METABOLIC PANEL [CHEM] DAILYLAB CBC - COMP BLD CT W/AUTO DIFF [HEME] DAILYLAB Subjective - Subjective Patient Reports: Other ([place] was awake alert and oriented x4 time of exam. She appeared very comfortable today. There was no sign of dyspnea and she was not hypoxic. She denied any other complaints.) Objective Vital Signs: Vital Signs - 24 hr 08/22/20 08/22/20 08/22/20 00:02 06:35 08:50 Temperature 36.5 C 36.7 C 36.8 C Heart Rate [ Brachial] Heart Rate [ 87 82 102 H Monitoring electrodes] Respiratory 18 19 18 Rate Blood Pressure 94/58 L 112/68 131/76 H [Right Brachial artery] O2 Saturation 91 L 92 95 08/22/20 08/22/20 08/22/20 12:29 15:51 20:12 Temperature 36.6 C 36.4 C L Heart Rate [ 54 L 71 Brachial] Heart Rate [ 92 Monitoring electrodes] Respiratory 18 18 Rate Blood Pressure 127/49 L 134/89 H 110/73 [Right Brachial artery] O2 Saturation 94 98 Oxygen O2 Source Room air I&O (Last 24 Hrs): Intake and Output Totals x24h 08/20/20 08/21/20 08/22/20 23:59 23:59 23:59 Intake Total 525 475 490 Output Total 2525 1600 450 Balance -[id number] 40 General: Alert, Oriented x3, No acute distress HEENT: PERRLA, EOMI Neck: Supple, No JVD Neuro: Alert, Non Focal, Oriented Times 3 Cardiovascular: Regular rate, Other (Irregularly irregular heart rhythm) Respiratory: Chest non-tender, No respiratory distress, Breath sounds nml, Other (Significantly improved breath sounds) Abdomen: Normal bowel sounds, Soft, No tenderness Extremities: No clubbing, No cyanosis, Other (2+ lower extremity edema. This is an improvement from previous days) Skin: No rashes - Results Results: Laboratory Results WBC 8.3 x10^3/uL (4.8-10.8) 08/22/20 06:10 RBC 3.55 10^6/uL (4.20-5.40) L 08/22/20 06:10 Hgb 14.2 g/dL (12.0-16.0) 08/22/20 06:10 Hct 41.7 % (37.0-47.0) 08/22/20 06:10 MCV 117.5 fL (81.0-99.0) H 08/22/20 06:10 MCH 40.0 pg (27.0-31.0) H 08/22/20 06:10 MCHC 34.1 g/dL (32.0-36.0) 08/22/20 06:10 RDW 14.7 % (12.0-15.0) 08/22/20 06:10 Plt Count 221 10^3/uL (130-450) 08/22/20 06:10 MPV 8.8 fL (7.9-10.8) 08/22/20 06:10 Neut # (Auto) 5.5 10^3/uL (1.5-6.6) 08/22/20 06:10 Lymph # (Auto) 1.9 10^3/uL (1.5-3.5) 08/22/20 06:10 [place] # (Auto) 0.6 10^3/uL (0.0-1.0) 08/22/20 06:10 Eos # (Auto) 0.2 10^3/uL (0.0-0.7) 08/22/20 06:10 Baso # (Auto) 0.1 10^3/uL (0.0-0.1) 08/22/20 06:10 Absolute Nucleated RBC 0.00 x10^3/uL 08/22/20 06:10 Nucleated RBC % 0.0 /100WBC 08/22/20 06:10 Manual Slide Review Indicated 08/19/20 06:10 Platelet Estimate NORMAL (130-450,000) (NORMAL) 08/19/20 06:10 Platelet Morphology NORMAL APPEARANCE (NORMAL) 08/14/20 16:15 RBC Morph Micro Appear 3+ MACROCYTOSIS (NORMAL) 1+ HYPOCHROMASIA (NORMAL) 08/19/20 06:10 RBC Morph Micro Appear 3+ MACROCYTOSIS (NORMAL) 1+ HYPOCHROMASIA (NORMAL) 08/19/20 06:10 VBG pH 7.311 (7.31-7.41) 08/15/20 04:43 Ionized Calcium 1.06 mmol/L (1.15-1.33) L 08/15/20 04:43 Sodium 138 mmol/L (135-145) 08/22/20 06:10 Potassium 3.9 mmol/L (3.5-5.0) 08/22/20 06:10 Chloride 93 mmol/L (101-111) L 08/22/20 06:10 Carbon Dioxide 34 mmol/L (21-32) H 08/22/20 06:10 Anion Gap 11.0 (6-13) 08/22/20 06:10 BUN 15 mg/dL (6-20) 08/22/20 06:10 Creatinine 0.7 mg/dL (0.4-1.0) 08/22/20 06:10 Estimated GFR (MDRD) 80 (>89) L 08/22/20 06:10 Glucose 93 mg/dL (70-100) 08/22/20 06:10 Estimat Average Glucose 88 mg/dL (70-100) 08/14/20 16:15 Hemoglobin A1c % 4.7 % (4.27-6.07) 08/14/20 16:15 Calcium 8.8 mg/dL (8.5-10.3) 08/22/20 06:10 Ionized Calcium YES 08/15/20 04:43 Phosphorus 4.7 mg/dL (2.5-4.6) H 08/14/20 16:15 Magnesium 1.9 mg/dL (1.7-2.8) 08/20/20 05:54 Total Bilirubin 0.8 mg/dL (0.2-1.0) 08/15/20 04:43 AST 29 IU/L (10-42) 08/15/20 04:43 ALT 52 IU/L (10-60) 08/15/20 04:43 Alkaline Phosphatase 93 IU/L (42-121) 08/15/20 04:43 Troponin I High Sens 18.2 ng/L (2.3-14.8) H* 08/20/20 12:19 B-Natriuretic Peptide 749 pg/mL (5-100) H 08/22/20 06:10 Total Protein 5.9 g/dL (6.7-8.2) L 08/15/20 04:43 Albumin 3.2 g/dL (3.2-5.5) 08/15/20 04:43 Globulin 2.7 g/dL (2.1-4.2) 08/15/20 04:43 Albumin/Globulin Ratio 1.2 (1.0-2.2) 08/15/20 04:43 Lipase 22 U/L (22-51) 08/14/20 16:15 Vitamin B12 629 pg/mL (180-914) 08/22/20 06:10 Folate 12.09 ng/mL (5.90 - >24.8) 08/22/20 06:10 TSH 2.03 uIU/mL (0.34-5.60) 08/14/20 16:15 Free T4 5.47 ng/dL (0.58-1.64) H 08/15/20 04:43 Free T3 pg/mL 8.70 pg/mL (2.5-3.9) H 08/15/20 04:43 PTH Intact 56 pg/mL (12-88) 08/15/20 04:43 Urine Color YELLOW 08/14/20 20:50 Urine Clarity CLEAR (CLEAR) 08/14/20 20:50 Urine pH 5.5 PH (5.0-7.5) 08/14/20 20:50 Ur Specific [place] 1.025 (1.002-1.030) 08/14/20 20:50 Urine Protein NEGATIVE mg/dL (NEGATIVE) 08/14/20 20:50 Urine Glucose (UA) NEGATIVE mg/dL (NEGATIVE) 08/14/20 20:50 Urine Ketones TRACE mg/dL (NEGATIVE) 08/14/20 20:50 Urine Occult Blood NEGATIVE (NEGATIVE) 08/14/20 20:50 Urine Nitrite NEGATIVE (NEGATIVE) 08/14/20 20:50 Urine Bilirubin NEGATIVE (NEGATIVE) 08/14/20 20:50 Urine Urobilinogen 0.2 (NORMAL) E.U./dL (NORMAL) 08/14/20 20:50 Ur Leukocyte Esterase NEGATIVE (NEGATIVE) 08/14/20 20:50 Ur Microscopic Review NOT INDICATED 08/14/20 20:50 Urine Culture Comments NOT INDICATED 08/14/20 20:50 Urine Sodium < 12.0 mmol/L 08/14/20 20:50 Nasal Adenovirus (PCR) NOT DETECTED 08/14/20 19:08 Nasal B. parapertussis DNA (PCR) NOT DETECTED 08/14/20 19:08 Nasal Coronavir 229E PCR NOT DETECTED 08/14/20 19:08 Nasal Coronavir HKU1 PCR NOT DETECTED 08/14/20 19:08 Nasal Coronavir NL63 PCR NOT DETECTED 08/14/20 19:08 Nasal Coronavir OC43 PCR NOT DETECTED 08/14/20 19:08 Nasal Enterovir/Rhinovir PCR NOT DETECTED 08/14/20 19:08 Nasal Influenza B PCR NOT DETECTED 08/14/20 19:08 Nasal Influenza A PCR NOT DETECTED 08/14/20 19:08 Nasal Parainfluen 1 PCR NOT DETECTED 08/14/20 19:08 Nasal Parainfluen 2 PCR NOT DETECTED 08/14/20 19:08 Nasal Parainfluen 3 PCR NOT DETECTED 08/14/20 19:08 Nasal Parainfluen 4 PCR NOT DETECTED 08/14/20 19:08 Nasal RSV (PCR) NOT DETECTED 08/14/20 19:08 Nasal Screen MRSA (PCR) NEGATIVE (NEGATIVE) 08/14/20 20:30 Nasal B.pertussis DNA PCR NOT DETECTED 08/14/20 19:08 Nasal C.pneumoniae (PCR) NOT DETECTED 08/14/20 19:08 C[place]riano Human Metapneumo PCR NOT DETECTED 08/14/20 19:08 Nasal M.pneumoniae (PCR) NOT DETECTED 08/14/20 19:08 Nasal SARS-CoV-2 (PCR) NOT DETECTED 08/14/20 19:08
[2020-08-22] MEDS: diphenhydrAMINE 25 MG CAPSULE PO PRN (22:01)
[2020-08-23] MEDS: SODIUM CHLORIDE FLUSH 0.9% 10 ML SYRINGE IVP SCH ×2 (00:06→10:03)
[2020-08-23 06:39] LABS: BASOPHILS # (AUTO) 0.1 10^3/uL (0.0-0.1); BASOPHILS % (AUTO) 0.6 %; EOSINOPHILS # (AUTO) 0.2 10^3/uL (0.0-0.7); EOSINOPHILS % (AUTO) 1.7 %; LYMPHOCYTES # (AUTO) 1.5 10^3/uL (1.5-3.5); LYMPHOCYTES % (AUTO) 15.6 %; MEAN CORPUSCULAR HEMOGLOBIN 39.4 pg (27.0-31.0); MEAN CORPUSCULAR HGB CONC 33.4 g/dL (32.0-36.0); MEAN CORPUSCULAR VOLUME 117.8 fL (81.0-99.0); MEAN PLATELET VOLUME 8.7 fL (7.9-10.8); MONOCYTES # (AUTO) 0.7 10^3/uL (0.0-1.0); MONOCYTES % (AUTO) 7.7 %; PLT - PLATELET COUNT 235 10^3/uL (130-450); RED BLOOD COUNT 3.81 10^6/uL (4.20-5.40); RED CELL DISTRIBUTION WIDTH 14.7 % (12.0-15.0); WHITE BLOOD COUNT 9.5 x10^3/uL (4.8-10.8)
[2020-08-23 06:48] LABS: CALCIUM 8.7 mg/dL (8.5-10.3); CREATININE 0.7 mg/dL (0.4-1.0)
[2020-08-23 06:55] LABS: DIGOXIN 0.6 ng/mL
[2020-08-23 07:55] LABS: PLATELET ESTIMATE, MANUAL NORMAL (130-450,000) (NORMAL); PLATELET MORPHOLOGY NORMAL APPEARANCE (NORMAL)
--- NOTE | 2020-08-23 09:27 | Discharge Plan ---
Discharge Plan Problem Reviewed?: Yes Disposition: Home Health Service Condition: Stable Prescriptions: Spironolactone [Aldactone] 25 mg PO DAILY #30 tablet Losartan [Cozaar] 25 mg PO QPM #30 tablet Apixaban [Eliquis] 5 mg PO BID #60 tablet Digoxin [Lanoxin] 125 mcg PO DAILY #30 tablet Furosemide [Lasix] 20 mg PO DAILY #30 tablet Metoprolol Succinate [Toprol Xl] 50 mg PO 1200 #60 tablet Diet: Low Sodium Activity Restrictions: Activity as Tolerated Instruction Topics: Heart Failure Dc, Atrial Fibrillation Dc Health Concerns: You were admitted to the hospital for weakness. The MRI of your brain did not show a stroke. You were found to have heart failure as your heart pump was weak. Your heart is pumping about 30% of the blood in your heart with each beat. Normal is approximately 55%. We have started you on medications to help with your heart failure which you will need to take on a daily basis. You were also found to have atrial fibrillation which is an arrhythmia. This can cause heart failure. This can also increase your risk of stroke. We have started you on a blood thinner called Eliquis to reduce your risk of stroke. This can increase your risk of bleeding. You were also found to have elevated thyroid numbers. Your thyroid hormones which include T4 and T3 are elevated. These are produced by your thyroid. Normally, a hormone called TSH tells her thyroid to make these hormones. Usually when T4 and T3 are elevated, your body makes less TSH as a response but your numbers are actually normal which may be due to pituitary mass which is causing your body to produce TSH. You may need an MRI on outpatient basis and endocrinology follow-up to see what is causing this. Treatment may include medical management. Plan of Treatment: Please begin to take your new cardiac medications as prescribed. This includes metoprolol 50 mg once a day. This is to control your heart rate and to help treat your heart failure. Please take Eliquis 5 mg twice a day. This is a blood thinner to reduce your risk of stroke given you now have atrial fibrillation. Please take spironolactone 25 mg daily. This is to help with your heart failure. You have also been prescribed digoxin which she will take once a day to help control your heart rate and treat your heart failure. You will also take Lasix 20 mg daily as this will help remove fluid to prevent exacerbation of your heart failure. You will also take losartan as this will help treat your heart failure. Your thyroid numbers are elevated as mentioned above. This can be contributing to your atrial fibrillation and heart failure. You should have repeat labs performed by her primary care provider which should include TSH, free T4, and T3. You may need MRI of your pituitary gland and a referral to endocrinology. If there is a mass in your pituitary gland which may be causing these abnormal labs. There can be medical treatment options. Care Goals: Please take your new heart failure medications as prescribed. Please follow-up with your primary care provider as you will need a referral to cardiology. Assessment: The patient and family expressed understanding of the treatment plan. Additional Instructions or Follow Up instructions: Please follow-up with your primary care provider within 1 week. They will refer you to a quality worker. They can also refer you to an manager terminal given your elevated thyroid numbers. You may need MRI of your pituitary gland to ensure there is no mass or tumor present. Follow-Up Care: Home Health - RN, Home Health - PT, Home Health - OT No Smoking: If you smoke, Please STOP! Call for help. Follow-up with: Balwinder Liz MD [Physician No Access] -
[2020-08-23] MEDS: CALCIUM CARBONATE CHEW 500 MG TABLET PO SCH ×2 (09:32→12:52)
[2020-08-23] MEDS: FUROSEMIDE 20 MG TABLET PO SCH (09:32)
[2020-08-23] MEDS: CHOLECALCIFEROL 5,000 UNIT CAPSULE PO SCH (09:33)
[2020-08-23] MEDS: SPIRONOLACTONE 25 MG TABLET PO SCH (09:33)
[2020-08-23] MEDS: GABAPENTIN 300 MG CAPSULE PO SCH ×2 (09:33→12:51)
[2020-08-23] MEDS: APIXABAN 5 MG TABLET PO SCH (09:33)
[2020-08-23] MEDS: DIGOXIN 125 MCG TABLET PO SCH (09:33)
[2020-08-23] MEDS: polyethylene glycoL 3350 17 GM PACKET PO SCH (09:34)
--- NOTE | 2020-08-23 12:31 | DISCHARGE SUMMARY ---
"Discharge Summary Admit Date: 08/14/20 Discharge Date: 08/23/20 Discharging Provider: Tito Erazo Primary Care Provider: Balwinder Liz Code Status: Do Not Attempt Resuscitation Condition at Discharge: Stable Discharge Disposition: Home Health Service - DIAGNOSES Admission Diagnoses: New onset atrial fibrillation Mild troponin leak Congestive heart failure Chronic left lower extremity ulcer Dysphagia Abnormal electrolytes Abnormal thyroid function test Respiratory failure/hypoxia Discharge Diagnoses with Status of Each Condition: Acute on chronic systolic heart failure Atrial fibrillation with rapid ventricular response Elevated free T4 Nonsustained ventricular tachycardia Multiple sclerosis - HPI History of Present Illness: Please refer to H&P of Dr. Fulton dated August 14, 2020. In brief summary, this is a 84-year-old female with multiple sclerosis who presented with shortness of breath and weakness. - CONSULTS | PROCEDURES Consultations: PT,OT, Social Work Procedures: Brain MRI without contrast on August 18 showed no acute findings. Age- appropriate brain parenchymal volume loss and chronic small vessel ischemic change can be seen. Arterial Dopplers suggested hemodynamically significant stenosis at level of left distal common femoral artery/proximal superficial femoral artery with extensive vascular disease throughout left superficial femoral artery. - HOSPITAL COURSE Hospital Course: She was admitted for weakness and shortness of breath. She underwent an MRI which was negative for stroke. She was found to be in atrial fibrillation with rapid response and this was felt to likely be the cause of her weakness. Her rate was controlled with oral metoprolol. An echocardiogram was obtained which showed an ejection fraction of approximately 30%. She was started on optimal medical therapy with losartan, metoprolol, spironolactone. She was diuresed w [facility] Lasix attention to oral Lasix. She was also treated with digoxin. Her TSH was within normal limits but her free T4 was found to be elevated at 5.47 and her free T3 was found to be elevated at 8.7. The concern was possibly for pituitary mass given her inappropriately normal TSH. She did have an MRI of the brain initially which was unremarkable. Given she was now medically stable for discharge, we did not pursue the MRI of the pituitary but the lab findings were discussed with the family and outpatient follow-up was recommended. This may potentially be a medication reaction due to her Zometa and hydroxyurea as well. The patient was evaluated by PT and OT and home health was recommended. She was discharged with home health services for PT, OT and RN. She was also discharged on Eliquis for the atrial fibrillation. - ALLERGIES Allergies/Adverse Reactions: Allergies Allergy/AdvReac Type Severity Reaction Status Date / Time phenytoin sodium * Allergy Hives Verified 08/14/20 15:54 [From Dilantin] phenytoin sodium extended * Allergy Hives Verified 08/14/20 15:54 [From Dilantin] Sulfa (Sulfonamide Allergy Rash Verified 08/14/20 15:54 Antibiotics) - MEDICATIONS Home Medications: Ambulatory Orders Medication Instructions Recorded Confirmed Atorvastatin Calcium [Lipitor] 5 mg PO QPM 02/09/14 08/15/20 Calcium Carbonate [Calcium] 500 mg PO BID 02/09/14 08/15/20 Cholecalciferol (Vitamin D3) 2,000 units PO DAILY 02/09/14 08/15/20 [Vitamin D3] Gabapentin 600 mg PO TID 02/09/14 08/15/20 Baclofen 10 - 20 mg PO QPM 05/11/16 08/15/20 Nitrofurantoin Macrocrystal 50 mg PO QPM 05/11/16 08/15/20 [Macrodantin] Biotin 100 mg PO TID 05/18/20 08/15/20 Hydroxyurea [Hydrea] 500 mg PO QPM 05/18/20 08/15/20 Latanoprost/Pf [Latanoprost 0.005% 1 drops EACHEYE DAILY 05/18/20 08/15/20 Eye Drop] Flavoxate HCl 100 mg PO TID PRN 08/14/20 08/15/20 Zoledronic Acid 4 mg/100 ml 5 mg IV ONCE 08/14/20 08/15/20 [Zometa 4 mg/100 ml] Alpha Lipoic Acid 1,200 mg PO DAILY 08/15/20 08/15/20 Brimonidine Tartrate/Timolol 1 drops EACHEYE BID 08/15/20 08/15/20 [Combigan 0.2%-0.5% Eye Drops] Apixaban [Eliquis] 5 mg PO BID #60 tablet 08/23/20 Digoxin [Lanoxin] 125 mcg PO DAILY #30 tablet 08/23/20 Furosemide [Lasix] 20 mg PO DAILY #30 tablet 08/23/20 Losartan [Cozaar] 25 mg PO QPM #30 tablet 01/19/21 Metoprolol Succinate [Toprol Xl] 50 mg PO 1200 #60 tablet 08/23/20 Spironolactone [Aldactone] 25 mg PO DAILY #30 tablet 08/23/20 - PHYSICAL EXAM AT DISCHARGE General Appearance: positive: No acute distress, Alert Eyes Bilateral: positive: Normal inspection, Conjunctivae nml ENT: positive: ENT inspection nml Neck: positive: Nml inspection Respiratory: positive: No respiratory distress. negative: Wheezes, Rales Cardiovascular: positive: Irregularly irregular. negative: Tachycardia, Systolic murmur Abdomen: positive: Non-tender, No distention. negative: Tenderness Skin: positive: Warm, Dry Extremities: positive: Pedal edema (+1 to +2 pitting edema in bilateral lower extremities.) Neurologic/Psychiatric: positive: Other (Decreased motor strength predominantly in the lower extremities.). negative: Disoriented to person, Disoriented to place Physical Exam Other/Comments: Vital Signs - 24 hr 08/22/20 08/22/20 08/23/20 20:12 20:54 00:18 Temperature 36.4 C L 36.3 C L Heart Rate [ 71 71 60 Brachial] Heart Rate [ Monitoring electrodes] Respiratory 18 16 Rate Blood Pressure 110/73 133/76 H 128/67 [Right Brachial artery] O2 Saturation 95 96 08/23/20 08/23/20 08/23/20 08:00 08:48 10:46 Temperature 37.0 C Heart Rate [ Brachial] Heart Rate [ 96 68 57 L Monitoring electrodes] Respiratory 16 18 20 Rate Blood Pressure 104/64 120/60 [Right Brachial artery] O2 Saturation 95 91 L 98 08/23/20 12:34 Temperature 36.4 C L Heart Rate [ Brachial] Heart Rate [ 105 H Monitoring electrodes] Respiratory 18 Rate Blood Pressure 101/60 [Right Brachial artery] O2 Saturation 94 Oxygen O2 Source Room air - LABS Result Diagrams: 08/23/20 06:30 08/23/20 06:30 Other Lab Results: Laboratory Results 08/23/20 06:30: Last Dose Date 08/22/2020, Last Dose Time 918, Digoxin 0.6 08/23/20 06:30: B-Natriuretic Peptide 676 H 08/23/20 06:30: Sodium 136, Potassium 4.0, Chloride 91 L, Carbon Dioxide 32, Anion Gap 13.0, BUN 15, Creatinine 0.7, Estimated GFR (MDRD) 80 L, Glucose 91, Calcium 8.7 08/23/20 06:30: WBC 9.5, RBC 3.81 L, Hgb 15.0, Hct 44.9, MCV 117.8 H, MCH 39.4 H, MCHC 33.4, RDW 14.7, Plt Count 235, MPV 8.7, Neut # (Auto) 7.0 H, Lymph # (Auto) 1.5, [place] # (Auto) 0.7, Eos # (Auto) 0.2, Baso # (Auto) 0.1, Absolute Nucleated RBC 0.00, Nucleated RBC % 0.0, WBC Morphology NORMAL APPEARANCE, Plate let Estimate NORMAL (130-450,000), Platelet Morphology NORMAL APPEARANCE, RBC Morph Micro Appear 2+ MACROCYTOSIS 08/22/20 06:10: Vitamin B12 629, Folate 12.09 - DIAGNOSTIC IMAGING Diagnostic Imaging Results: Final report reviewed - FOLLOW UP Follow Up: Patient will follow up with her primary care provider on August 25. Outpatient follow-up with cardiology and endocrinology was recommended. - TIME SPENT Time Spent in Discharge (Minutes): 37"
[2020-08-23 12:34] VITALS: BP 101/60
[2020-08-23] MEDS: METOPROLOL SUCCINATE 25 MG TABLET PO SCH (12:51)
== END 2020-08-23 13:50 | disposition home health service (06) | DRG 291 ==
LOC: EDUNIT# → ED 15:44 → ICU 18:29 → MS2 08-17 18:40
PROVIDERS: ADMIT Specialist; ATTEND Internal Medicine
DX: I50.23 Acute on chronic systolic (congestive) heart failure (principal); J96.01 Acute respiratory failure with hypoxia; L97.929 Non-pressure chronic ulcer of unspecified part of left lower leg with unspecified severity; I48.92 Unspecified atrial flutter; J91.8 Pleural effusion in other conditions classified elsewhere; I48.91 Unspecified atrial fibrillation; R00.0 Tachycardia, unspecified; G35 Multiple sclerosis; I73.9 Peripheral vascular disease, unspecified; M81.0 Age-related osteoporosis without current pathological fracture; G62.9 Polyneuropathy, unspecified; Z85.3 Personal history of malignant neoplasm of breast; Z66 Do not resuscitate; Z99.3 Dependence on wheelchair; N31.9 Neuromuscular dysfunction of bladder, unspecified; R58 Hemorrhage, not elsewhere classified; I89.0 Lymphedema, not elsewhere classified; R94.6 Abnormal results of thyroid function studies; R13.10 Dysphagia, unspecified; Z79.899 Other long term (current) drug therapy; Z51.5 Encounter for palliative care; R33.9 Retention of urine, unspecified; R53.1 Weakness; F41.9 Anxiety disorder, unspecified; D45 Polycythemia vera; D47.3 Essential (hemorrhagic) thrombocythemia; E83.51 Hypocalcemia; E83.39 Other disorders of phosphorus metabolism; E05.90 Thyrotoxicosis, unspecified without thyrotoxic crisis or storm; R07.89 Other chest pain
CPT/HCPCS: 36415; 70551; 71045; 71275; 80048; 80053; 80162; 81003; 82330; 82607; 82746; 83036; 83690; 83735; 83880; 83970; 84100; 84132; 84300; 84439; 84443; 84481; 84484; 85025; 87150; 87631; 92610; 93005; 93306; 93925; 96365; 96375; 97162; 97167; 97530; 99223; 99284; 99285; A9270; J1650; J2765; J7120; Q9967; 0202U; 81001; 87086